=== PATIENT | male | born 1955 | race Caucasian/White ===

== ENCOUNTER → 2017-09-13 | Outpatient (CLI) | payer OTHER ==
--- NOTE | 2017-09-13 08:10 | CT ---
EXAMINATION TYPE: CT brain wo con DATE OF EXAM: 09/13/2017 COMPARISON: NONE HISTORY: Memory loss CT DLP: 945.[address] of the brain was performed. The ventricles, basal cisterns and sulci overlying the cerebral convexities demonstrate mild enlargem ent. There is no evidence for intracranial hemorrhage or sulcal effacement. There is decreased attenuation about the periventricular white matter and deep white matter of both c erebral hemispheres, compatible with chronic small vessel ischemia. Differential diagnosis does inclu de demyelination. No mass effects are seen.No midline shift. Osseous calvarium is intact. If symptoms persist consider MRI. IMPRESSION: 1. Age related atrophic and chronic small vessel ischemic change without acute intracranial process s een at this time.
== END | disposition home or self-care (01) ==
LOC: RADCTMAIN 06:52
PROVIDERS: ATTEND Psychiatry & Neurology Neurology
DX: G31.9 Degenerative disease of nervous system, unspecified (principal); I67.82 Cerebral ischemia
CPT/HCPCS: 70450

== ENCOUNTER 2018-06-29 11:21 | Emergency (ER) | payer OTHER ==
[2018-06-29 12:27] LABS: Appearance,Urine Clear (Clear); Basophils # (A) 0.1 k/uL (0-0.2); Basophils % (A) 1 %; Bilirubin,Urine Negative (Negative); Blood,Urine Negative (Negative); Color,Urine Yellow; Eosinophils # (A) 0.2 k/uL (0-0.7); Eosinophils % (A) 3 %; Glucose,Urine (UA) Negative (Negative); HCT 40.7 % (39.0-53.0); HGB 13.1 gm/dL (13.0-17.5); Ketones,Urine Negative (Negative); Leukocyte Esterase,Urine Negative (Negative); Lymphocytes % (A) 36 %; MCHC 32.2 g/dL (31.0-37.0); Mean Platelet Volume 7.6; Monocytes # (A) 0.3 k/uL (0-1.0); Monocytes % (A) 6 %; Neutrophils # (A) 2.9 k/uL (1.3-7.7); Neutrophils % (A) 52 %; Nitrite,Urine Negative (Negative); PH, Urine 6.5 (5.0-8.0); Platelet Count 226 k/uL (150-450); Protein,Urine Negative (Negative); RBC 4.68 m/uL (4.30-5.90); RDW 13.8 % (11.5-15.5); Specific Gravity,Urine 1.016 (1.001-1.035); WBC 5.5 k/uL (3.8-10.6)
[2018-06-29 12:36] LABS: ALT 45 U/L (21-72); AST 24 U/L (17-59); Albumin 4.1 g/dL (3.5-5.0); Alkaline Phosphatase 69 U/L (38-126); Anion Gap 7 mmol/L; Blood Urea Nitrogen 12 mg/dL (9-20); Calcium 8.9 mg/dL (8.4-10.2); Carbon Dioxide 27 mmol/L (22-30); Chloride 107 mmol/L (98-107); Glucose 111 mg/dL (74-99); Lipase 56 U/L (23-300); Potassium 3.9 mmol/L (3.5-5.1); Sodium 141 mmol/L (137-145); Total Bilirubin 0.5 mg/dL (0.2-1.3); Total Protein 6.7 g/dL (6.3-8.2)
--- NOTE | 2018-06-29 12:58 | CT ---
EXAMINATION TYPE: CT abdomen pelvis w con DATE OF EXAM: 06/29/2018 COMPARISON: HISTORY: RLQ pain CT DLP: 876 mGycm CONTRAST: CT scan of the abdomen and pelvis is performed without Oral Contrast and with IV Contrast, patient in jected with 100 mL of Isovue 300. FINDINGS: LUNG BASES-: No visible nodule. No infiltrate. LIVER/GB: No calcified gallstones. Mild hepatomegaly with underlying hepatic steatosis. No space o ccupying hepatic lesion. Biliary tree is of normal caliber. PANCREAS: No inflammation. No distinct mass. SPLEEN: No splenic enlargement. No lesion seen. ADRENALS: No nodule. No thickening. KIDNEYS/BLADDER: No hydronephrosis. No nephrolithiasis. No distinct renal mass. Urinary bladder g rossly unremarkable. BOWEL: Normal appendix. There is mild wall thickening involving the small bowel which may reflect en teritis. Correlate clinically. Large bowel is of normal caliber. Normal bowel caliber. No inflammati on. GENITAL ORGANS: No gross abnormality. LYMPH NODES: No greater than 1cm abdominal or pelvic lymph nodes are appreciated. AORTA: No significant abnormality. OSSEOUS STRUCTURES: No significant abnormality is seen. OTHER: No significant additional abnormality is seen. IMPRESSION: 1. Correlate for small bowel enteritis. 2. Mild hepatomegaly with underlying hepatic steatosis. 3. Normal appendix.
[2018-06-29] MEDS ORDERED: ACET/COD 300 MG/30 MG STARTER PACK 6 TAB BTL PO STA (13:26)
[2018-06-29] MEDS ORDERED: KETOROLAC 30 MG/ML 1 ML VIAL IVP STA (13:26)
--- NOTE | 2018-06-29 13:29 | ED ---
Abdominal Pain HPI - General Chief Complaint: Abdominal Pain Stated Complaint: [facility]-Abd Pain Time Seen by Provider: 06/29/18 11:45 Source: patient, RN notes reviewed Mode of arrival: ambulatory Limitations: no limitations - History of Present Illness Initial Comments: 62-year-old male presents emergency Department chief complaint right lower quadrant abdominal pain. Patient states she had some discomfort after lifting some parts other day and states it worsened today after lifting parts. Patient states he has a large amount lifting at work. Patient states he feels swelling and pain in the right lower quadrant. Patient states never had any like this in the past. - Related Data Home Medications Medication Instructions Recorded Confirmed Tamsulosin HCl [Flomax] 0.4 mg PO HS 08/14/14 06/29/18 Albuterol Nebulized [Ventolin 2.5 mg INHALATION RT-QID PRN 06/29/18 06/29/18 Nebulized] Aspirin EC [Ecotrin Low Dose] 81 mg PO DAILY 06/29/18 06/29/18 Atorvastatin Calcium [Lipitor] 80 mg PO HS 06/29/18 06/29/18 Carvedilol [Coreg] 3.125 mg PO BID 06/29/18 06/29/18 Cetirizine HCl [Zyrtec] 10 mg PO DAILY 06/29/18 06/29/18 Cholecalciferol (Vitamin D3) 2,000 unit PO DAILY 06/29/18 06/29/18 [Vitamin D3] Finasteride [Proscar] 5 mg PO DAILY 06/29/18 06/29/18 Ipratropium/Albuterol Sulfate 1 puff INHALATION RT-QID 06/29/18 06/29/18 [Combivent Respimat Inhaler] Isosorbide Mononitrate ER [Imdur] 30 mg PO DAILY 06/29/18 06/29/18 Nitroglycerin Sl Tabs [Nitrostat] 0.4 mg SUBLINGUAL Q5M PRN 06/29/18 06/29/18 Omeprazole 40 mg PO BID 06/29/18 06/29/18 Sertraline HCl [Zoloft] 50 mg PO DAILY 06/29/18 06/29/18 rOPINIRole HCL [Requip] 0.25 mg PO HS 06/29/18 06/29/18 Previous Rx's Medication Instructions Recorded Ibuprofen [Motrin] 600 mg PO Q8HR PRN #30 tab 06/29/18 Allergies Allergy/AdvReac Type Severity Reaction Status Date / Time No Known Allergies Allergy Verified 06/29/18 11:39 Review of Systems ROS Statement: Those systems with pertinent positive or pertinent negative responses have been documented in the HPI. ROS Other: All systems not noted in ROS Statement are negative. Past Medical History Past Medical History: COPD, GERD/Reflux, Hyperlipidemia, Hypertension Additional Past Medical History / Comment(s): BEGINNINGS OF CATARACT NOT SURE WHICH EYE, LT EAR DEAF-READS LIPS, CARPAL TUNNEL. HX FAlls has bad rt ankle getting pt on it but loses his balanceuses cane if out and about,forgetfull at times History of Any Multi-Drug Resistant Organisms: None Reported Past Surgical History: Unable to Obtain Additional Past Surgical History / Comment(s): rt carpal tunnel sx Past Anesthesia/Blood Transfusion Reactions: No Reported Reaction Past Psychological History: No Psychological Hx Reported Smoking Status: Former smoker Past Alcohol Use History: None Reported Past Drug Use History: None Reported - Past Family History Father Family Medical History: Myocardial Infarction ([place]) Mother Family Medical History: Cancer, Hypertension, Liver Disease Additional Family Medical History / Comment(s): tb in 1968, breast cancer General Exam Limitations: no limitations General appearance: alert, in no apparent distress Head exam: Present: atraumatic, normocephalic, normal inspection Respiratory exam: Present: normal lung sounds bilaterally. Absent: respiratory distress, wheezes, rales, rhonchi, stridor Cardiovascular Exam: Present: regular rate, normal rhythm, normal heart sounds. Absent: systolic murmur, diastolic murmur, rubs, gallop, clicks GI/Abdominal exam: Present: soft, tenderness (Mild right inguinal region tenderness), normal bowel sounds. Absent: distended, guarding, rebound, rigid Back exam: Absent: CVA tenderness (R), CVA tenderness (L) Course Vital Signs 06/29/18 11:24 Temperature 98 F Pulse Rate 91 Respiratory 18 Rate Blood Pressure 138/76 O2 Sat by Pulse 96 Oximetry Medical Decision Making - Medical Decision Making 62-year-old male presented for right-sided abdominal pain after lifting parts. Patient has abdominal wall strain. Patient has no evidence of inguinal hernia at this time. Patient will follow-up [facility] return for any worsening symptoms. - Lab Data Result diagrams: 06/29/18 12:10 06/29/18 12:10 Lab Results 06/29/18 06/29/18 06/29/18 Range/Units 12:10 12:10 12:10 WBC 5.5 (3.8-10.6) k/uL RBC 4.68 (4.30-5.90) m/uL Hgb 13.1 (13.0-17.5) gm/dL Hct 40.7 (39.0-53.0) % MCV 87.0 (80.0-100.0) fL MCH 28.0 (25.0-35.0) pg MCHC 32.2 (31.0-37.0) g/dL RDW 13.8 (11.5-15.5) % Plt Count 226 (150-450) k/uL Neutrophils % 52 % Lymphocytes % 36 % Monocytes % 6 % Eosinophils % 3 % Basophils % 1 % Neutrophils # 2.9 (1.3-7.7) k/uL Lymphocytes # 2.0 (1.0-4.8) k/uL Monocytes # 0.3 (0-1.0) k/uL Eosinophils # 0.2 (0-0.7) k/uL Basophils # 0.1 (0-0.2) k/uL Sodium 141 (137-145) mmol/L Potassium 3.9 (3.5-5.1) mmol/L Chloride 107 (98-107) mmol/L Carbon Dioxide 27 (22-30) mmol/L Anion Gap 7 mmol/L BUN 12 (9-20) mg/dL Creatinine 0.78 (0.66-1.25) mg/dL Est GFR (CKD-EPI)AfAm >90 (>60 ml/min/1.73 sqM) Est GFR (CKD-EPI)NonAf >90 (>60 ml/min/1.73 sqM) Glucose 111 H (74-99) mg/dL Calcium 8.9 (8.4-10.2) mg/dL Total Bilirubin 0.5 (0.2-1.3) mg/dL AST 24 (17-59) U/L ALT 45 (21-72) U/L Alkaline Phosphatase 69 (38-126) U/L Total Protein 6.7 (6.3-8.2) g/dL Albumin 4.1 (3.5-5.0) g/dL Lipase 56 (23-300) U/L Urine Color Yellow Urine Appearance Clear (Clear) Urine pH 6.5 (5.0-8.0) Ur Specific [place] 1.016 (1.001-1.035) Urine Protein Negative (Negative) Urine Glucose (UA) Negative (Negative) Urine Ketones Negative (Negative) Urine Blood Negative (Negative) Urine Nitrite Negative (Negative) Urine Bilirubin Negative (Negative) Urine Urobilinogen 2.0 (<2.0) mg/dL Ur Leukocyte Esterase Negative (Negative) Disposition Clinical Impression: Abdominal pain, Abdominal wall strain Disposition: HOME SELF-CARE Condition: Stable Instructions (If sedation given, give patient instructions): Muscle Strain (ED) Additional Instructions: Please return to the Emergency Department if symptoms worsen or any other concerns. Prescriptions: Ibuprofen [Motrin] 600 mg PO Q8HR PRN #30 tab PRN Reason: Pain Is patient prescribed a controlled substance at d/c from ED?: No Referrals: [facility],Clinic [Primary Care Provider] - 1-2 days Time of Disposition: 13:29
[2018-06-29 14:16] VITALS: BP 132/88; PULSE 78; RESP 19; TEMP 96.9
== END 2018-06-29 14:16 | disposition home or self-care (01) ==
LOC: EC 11:21
DX: S39.011A Strain of muscle, fascia and tendon of abdomen, initial encounter (principal); J44.9 Chronic obstructive pulmonary disease, unspecified; K21.9 Gastro-esophageal reflux disease without esophagitis; E78.5 Hyperlipidemia, unspecified; I10 Essential (primary) hypertension; Z87.891 Personal history of nicotine dependence; Z79.82 Long term (current) use of aspirin; Z79.899 Other long term (current) drug therapy; Z53.29 Procedure and treatment not carried out because of patient's decision for other reasons
CPT/HCPCS: 36415; 74177; 80053; 81003; 83690; 85025; 99284

== ENCOUNTER → 2018-07-01 | Outpatient (CLI) | payer OTHER ==
--- NOTE | 2018-07-01 16:17 | XR ---
EXAMINATION TYPE: XR Hip Complete RT DATE OF EXAM: 07/01/2018 CLINICAL HISTORY: pain TECHNIQUE: AP and frogleg views of the right hip are obtained. COMPARISON: None. FINDINGS: There is no acute fracture/dislocation evident. The joint space appears within normal li mits. The overlying soft tissue appears unremarkable. IMPRESSION: 1. There is no acute fracture or dislocation. ICD 10 NO FRACTURE, INITIAL EVALUATION
--- NOTE | 2018-07-01 17:19 | US ---
EXAMINATION TYPE: US SCROTUM WITH DOPPLER. Grayscale and color Doppler Duplex imaging performed of the scrotum. DATE OF EXAM: 07/01/2018 COMPARISON: NONE CLINICAL HISTORY: S73.101A, N45.1. Pt states right groin/testicle pain after lifting EXAM MEASUREMENTS: TESTICLES: Right Testicle: 3.4 x 2.2 x 3.0 cm Left Testicle: 2.8 x 2.2 x 3.3 cm EPIDIDYMIS HEAD: Right Epididymis: 1.1 cm Left Epididymis: normal epididymis not visualized due to multiple cysts Doppler performed to assess for testicular vascularity; good bilateral color flow and waveforms are s een. There is no evidence of testicular torsion. Presence of hydroceles: Small amount of fluid surrounding right testicle Presence of varicoceles: No Cyst within left testicle upper= 0.3 cm/ Multiple cysts within left epi head, largest 2 measured 1)= 1.7 cm 2)= 1.5 cm Results called to Fran KWONG at time of exam IMPRESSION: NO ACUTE PROCESS.
== END ==
LOC: RADXRMAIN 15:47
PROVIDERS: ATTEND Emergency Medicine
DX: S73.101A Unspecified sprain of right hip, initial encounter (principal); N45.1 Epididymitis
CPT/HCPCS: 73502; 76870; 93975

== ENCOUNTER → 2018-07-14 | Outpatient (CLI) | payer OTHER ==
--- NOTE | 2018-07-14 15:24 | CONS ---
CONSULTATION DATE OF SERVICE: 07/14/2018 A 62-year-old gentleman who has been evaluated in the [facility] for excessive daytime sleepiness. HISTORY OF PRESENT ILLNESS/SLEEP-WAKE EVALUATION: Patient usual sleep schedule from 8 - 9 p.m. until 5:15 am on working days and from 9 - 10 p.m. to 8 a.m. on weekends. He does have problem with falling asleep. He reads in bedroom. Usually sleeps on the side position and he wakes up from sleep 5 times with nocturia and has episodes of body jerks. No history of hypnagogic hallucinations, sleep paralysis or cataplexy. In the morning, patient wakes up tired has difficulties to pay attention during the day, falling asleep, worry about his sleep, has problem with memory and concentration. [place] Sleepiness Scale significantly increased to 15. PAST MEDICAL HISTORY: Positive for hypertension, COPD, acid reflux, hyperlipidemia, depression, episodes of chest pain according to patient. Cardiac evaluation was negative for significant coronary artery disease problems. PAST SURGICAL HISTORY: Surgery for carpal tunnel syndrome on the right arm in 2004. MEDICATIONS: Ibuprofen, atorvastatin, finasteride, tamsulosin, sertraline, omeprazole, isosorbide, aspirin, nitroglycerin, cetirizine, inhalers of Combivent and albuterol. Also medication for the blood pressure. Patient does not remember the name. SOCIAL HISTORY: Positive for smoking for about 40 pack years, quit 10 years ago. Alcohol consumption none for the last 23 years. REVIEW OF SYSTEMS: Multiple awakenings from sleep, sleepiness during the day. FAMILY HISTORY: Hypertension, heart problems, hyperlipidemia, bronchitis, lung problems, emphysema, tuberculosis, acid reflex, cancer, restless legs. PHYSICAL EXAM: gentleman without distress. BP 121/68, HR 85, RR 16, height 20 height 5 foot 9 inches, weight 202.8 pounds, body mass index 29.8, temperature 97.9, oxygen saturation at room air 95%. Oropharynx low position of soft palate. Mallampati 3. Big uvula. Restriction of nasal breathing bilaterally. Neck Supple, no JVD. Thyroid is not palpable. LUNGS Clear to percussion and to auscultation. Good air exchange. No wheezing or rhonchi. HEART S1, S2 regular. No murmurs, gallops, or rubs. ABDOMEN Soft and nontender. Bowel sounds are present. No organomegaly appreciated. EXTREMITIES No clubbing or cyanosis. 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 Cranial nerves 2 to 7 intact. There is no fasciculation or atrophy. noted. No focal deficits observed. IMPRESSION: 1. Multiple awakenings from sleep. Small oropharyngeal air space, wide neck 16-3/4 inches in circumference, sleepiness, obstructive sleep apnea-hypopnea syndrome. 2. Significant sleepiness. [place] Sleepiness Scale increased to 15. Differential diagnosis should include hypersomnia. Sleep study will be negative for obstructive sleep apnea-hypopnea syndrome. 3. History of hypertension. 4. Chronic obstructive pulmonary disease. 5. Acid reflux. 6. Hyperlipidemia. 7. History of depression. 8. History of episodes of angina. 9. According to patient, workup for significant cardiac problems was negative. PLAN: 1. Polysomnography for evaluation of patient's breathing during sleep. 2. CPAP/BiPAP titration if sleep study confirms obstructive sleep apnea-hypopnea syndrome. 3. Preferable position during sleep on the side. 4. No driving if patient feels any sleepiness. 5. I will see patient for follow up visit to explain results of testing and following plan. 6. Multiple sleep latency test, if sleep study will be negative for obstructive sleep apnea/hypopnea syndrome. Thank you very much for referring this patient for consultation. Sincerely, Wilfredo Samuel MD, PhD, FAASM Diplomat of [place] [employer] [place] [employer] [facility] [place] MMODL / IJN: [id number] /
== END ==
LOC: SLEEP 13:28
PROVIDERS: ATTEND Internal Medicine
DX: G47.33 Obstructive sleep apnea (adult) (pediatric) (principal); I10 Essential (primary) hypertension; J44.9 Chronic obstructive pulmonary disease, unspecified; K21.9 Gastro-esophageal reflux disease without esophagitis; E78.5 Hyperlipidemia, unspecified; F32.9 Major depressive disorder, single episode, unspecified; Z79.899 Other long term (current) drug therapy; Z79.82 Long term (current) use of aspirin; Z79.51 Long term (current) use of inhaled steroids; Z87.891 Personal history of nicotine dependence; Z99.89 Dependence on other enabling machines and devices; Z86.79 Personal history of other diseases of the circulatory system
CPT/HCPCS: 99211

== ENCOUNTER 2018-09-13 19:15 | Emergency (ER) | payer OTHER ==
[2018-09-13] MEDS ORDERED: IBUPROFEN 600 MG TAB PO STA (19:55)
[2018-09-13] MEDS ORDERED: ACETAMINOPHEN TAB 500 MG TAB PO STA (19:55)
--- NOTE | 2018-09-13 20:01 | ED ---
General Adult HPI - General Source: patient, RN notes reviewed Mode of arrival: wheelchair Limitations: no limitations, physical limitation <Steven Escalante - Last Filed: 09/13/18 20:57> <Ayo Banda - Last Filed: 09/13/18 23:38> - General Chief complaint: Chest Pain Stated complaint: SOB, CHEST TIGHTNESS Time Seen by Provider: 09/13/18 19:30 - History of Present Illness Initial comments: This is a 63-year-old male who presents emergency Department with a past medical history of COPD. Patient comes in today because he's been having some chest pain and difficulty breathing over the last week but the chest pain started yesterday. Patient states she's also been coughing quite a bit more. Patient states he does not think he has a fever but he never took his temperature. Patient denies any palpitations. Patient denies any abdominal pain. Patient states that the chest pain as a burning sensation. Patient states it does appear to be worse with coughing. Patient denies any nausea vomiting diarrhea. Patient denies lightheadedness dizziness or near syncopal episode. Patient denies any swelling to the legs. Calf tenderness. (Steven Escalante) - Related Data Home Medications Medication Instructions Recorded Confirmed Tamsulosin HCl [Flomax] 0.4 mg PO HS 08/14/14 09/13/18 Albuterol Nebulized [Ventolin 2.5 mg INHALATION RT-QID PRN 06/29/18 09/13/18 Nebulized] Aspirin EC [Ecotrin Low Dose] 81 mg PO DAILY 06/29/18 09/13/18 Atorvastatin Calcium [Lipitor] 80 mg PO HS 06/29/18 09/13/18 Carvedilol [Coreg] 3.125 mg PO BID 06/29/18 09/13/18 Cetirizine HCl [Zyrtec] 10 mg PO DAILY 06/29/18 09/13/18 Finasteride [Proscar] 5 mg PO DAILY 06/29/18 09/13/18 Ipratropium/Albuterol Sulfate 1 puff INHALATION RT-QID 06/29/18 09/13/18 [Combivent Respimat Inhaler] Isosorbide Mononitrate ER [Imdur] 30 mg PO DAILY 06/29/18 09/13/18 Nitroglycerin Sl Tabs [Nitrostat] 0.4 mg SUBLINGUAL Q5M PRN 06/29/18 09/13/18 Omeprazole 40 mg PO BID 06/29/18 09/13/18 Sertraline HCl [Zoloft] 50 mg PO DAILY 06/29/18 09/13/18 rOPINIRole HCL [Requip] 0.25 mg PO HS 06/29/18 09/13/18 Cholecalciferol [Vitamin D3 (25 5,000 unit PO DAILY 09/13/18 09/13/18 Mcg = 1000 Iu)] Meloxicam [Mobic] 7.5 mg PO DAILY 09/13/18 09/13/18 Previous Rx's Medication Instructions Recorded Ibuprofen [Motrin] 600 mg PO Q8HR PRN #30 tab 06/29/18 Azithromycin [Zithromax Z-pack] 250 mg PO DIRECTED #6 tab 09/13/18 Allergies Allergy/AdvReac Type Severity Reaction Status Date / Time No Known Allergies Allergy Verified 09/13/18 19:49 Review of Systems ROS Other: All systems not noted in ROS Statement are negative. <Steven Escalante - Last Filed: 09/13/18 20:57> ROS Other: All systems not noted in ROS Statement are negative. <yAo Banda - Last Filed: 09/13/18 23:38> ROS Statement: Those systems with pertinent positive or pertinent negative responses have been documented in the HPI. Past Medical History Past Medical History: COPD, GERD/Reflux, Hyperlipidemia, Hypertension Additional Past Medical History / Comment(s): BEGINNINGS OF CATARACT NOT SURE WHICH EYE, LT EAR DEAF-READS LIPS, CARPAL TUNNEL. HX FAlls has bad rt ankle getting pt on it but loses his balanceuses cane if out and about,forgetfull at times History of Any Multi-Drug Resistant Organisms: None Reported Past Surgical History: Unable to Obtain Additional Past Surgical History / Comment(s): rt carpal tunnel sx Past Anesthesia/Blood Transfusion Reactions: No Reported Reaction Past Psychological History: No Psychological Hx Reported Smoking Status: Former smoker Past Alcohol Use History: None Reported Past Drug Use History: None Reported - Past Family History Father Family Medical History: Myocardial Infarction (VT) Mother Family Medical History: Cancer, Hypertension, Liver Disease Additional Family Medical History / Comment(s): tb in 1967, breast cancer <Steven Escalante - Last Filed: 09/13/18 20:57> General Exam Limitations: no limitations, physical limitation <Steven Escalante - Last Filed: 09/13/18 20:57> - General Exam Comments Initial Comments: GENERAL: Patient is well-developed and well-nourished. Patient is nontoxic and well- hydrated and is in mild distress. The patient's temperature it was 101.5 ENT: Neck is soft and supple. No significant lymphadenopathy is noted. Oropharynx is clear. Moist mucous membranes. Neck has full range of motion without eliciting any pain. EYES: The sclera were anicteric and conjunctiva were pink and moist. Extraocular movements were intact and pupils were equal round and reactive to light. Eyelids were unremarkable. PULMONARY: Diminished breath sounds bilaterally CARDIOVASCULAR: There is a regular rate and rhythm without any murmurs gallops or rubs. ABDOMEN: Soft and nontender with normal bowel sounds. No palpable organomegaly was noted. There is no palpable pulsatile mass. SKIN: Skin is clear with no lesions or rashes and otherwise unremarkable. NEUROLOGIC: Patient is alert and oriented x3. Cranial nerves II through XII are grossly intact. Motor and sensory are also intact. Normal speech, volume and content. Symmetrical smile. MUSCULOSKELETAL: Normal extremities with adequate strength and full range of motion. No lower extremity swelling or edema. No calf tenderness. LYMPHATICS: No significant lymphadenopathy is noted PSYCHIATRIC: Normal psychiatric evaluation. (Steven Ecsalante) Course Vital Signs 09/13/18 09/13/18 09/13/18 19:27 21:03 21:06 Temperature 99.1 F 101.7 F H Pulse Rate 124 H 112 H Pulse Rate [ Bilateral [place] Guide ] Respiratory 22 18 Rate Blood Pressure 137/73 143/82 O2 Sat by Pulse 93 L 98 Oximetry 09/13/18 09/13/18 09/13/18 21:07 21:37 21:47 Temperature Pulse Rate 108 H 110 H Pulse Rate [ 111 H Bilateral [place] Guide ] Respiratory Rate Blood Pressure O2 Sat by Pulse Oximetry 09/13/18 09/13/18 21:58 22:29 Temperature 99.7 F H Pulse Rate 110 H 105 H Pulse Rate [ Bilateral [place] Guide ] Respiratory 18 18 Rate Blood Pressure 128/66 124/67 O2 Sat by Pulse 98 Oximetry Medical Decision Making - Lab Data Result diagrams: 09/13/18 20:00 09/13/18 20:00 <Steven Escalante - Last Filed: 09/13/18 20:57> - Lab Data Result diagrams: 09/13/18 20:00 09/13/18 20:00 <Ayo Banda - Last Filed: 09/13/18 23:38> - Medical Decision Making EKG shows sinus tachycardia at 114 bpm NM interval 274 QRS is 70 QT interval is 292 QTC is 402. Patient's EKG shows no ST segment elevation or depression. Dr. Banda be taking over the care of the patient 9 PM (Steven Escalante) - Lab Data Lab Results 09/13/18 09/13/18 09/13/18 Range/Units 20:00 20:00 20:00 WBC 11.3 H (3.8-10.6) k/uL RBC 5.10 (4.30-5.90) m/uL Hgb 13.9 (13.0-17.5) gm/dL Hct 43.8 (39.0-53.0) % MCV 86.0 (80.0-100.0) fL MCH 27.3 (25.0-35.0) pg MCHC 31.8 (31.0-37.0) g/dL RDW 14.4 (11.5-15.5) % Plt Count 231 (150-450) k/uL Neutrophils % 81 % Lymphocytes % 9 % Monocytes % 6 % Eosinophils % 2 % Basophils % 0 % Neutrophils # 9.2 H (1.3-7.7) k/uL Lymphocytes # 1.0 (1.0-4.8) k/uL Monocytes # 0.7 (0-1.0) k/uL Eosinophils # 0.2 (0-0.7) k/uL Basophils # 0.1 (0-0.2) k/uL PT (9.0-12.0) sec INR (<1.2) APTT (22.0-30.0) sec Sodium 140 (137-145) mmol/L Potassium 4.2 (3.5-5.1) mmol/L Chloride 105 (98-107) mmol/L Carbon Dioxide 25 (22-30) mmol/L Anion Gap 10 mmol/L BUN 15 (9-20) mg/dL Creatinine 0.96 (0.66-1.25) mg/dL Est GFR (CKD-EPI)AfAm >90 (>60 ml/min/1.73 sqM) Est GFR (CKD-EPI)NonAf 84 (>60 ml/min/1.73 sqM) Glucose 119 H (74-99) mg/dL Plasma Lactic Acid Mane 2.0 (0.7-2.0) mmol/L Calcium 9.4 (8.4-10.2) mg/dL Total Bilirubin 0.5 (0.2-1.3) mg/dL AST 31 (17-59) U/L ALT 29 (21-72) U/L Alkaline Phosphatase 84 (38-126) U/L Troponin I (0.000-0.034) ng/mL Total Protein 7.3 (6.3-8.2) g/dL Albumin 4.6 (3.5-5.0) g/dL Urine Color Urine Appearance (Clear) Urine pH (5.0-8.0) Ur Specific [place] (1.001-1.035) Urine Protein (Negative) Urine Glucose (UA) (Negative) Urine Ketones (Negative) Urine Blood (Negative) Urine Nitrite (Negative) Urine Bilirubin (Negative) Urine Urobilinogen (<2.0) mg/dL Ur Leukocyte Esterase (Negative) Influenza Type A RNA (Not Detectd) Influenza Type B (PCR) (Not Detectd) 09/13/18 09/13/18 09/13/18 Range/Units 20:00 20:00 21:00 WBC (3.8-10.6) k/uL RBC (4.30-5.90) m/uL Hgb (13.0-17.5) gm/dL Hct (39.0-53.0) % MCV (80.0-100.0) fL MCH (25.0-35.0) pg MCHC (31.0-37.0) g/dL RDW (11.5-15.5) % Plt Count (150-450) k/uL Neutrophils % % Lymphocytes % % Monocytes % % Eosinophils % % Basophils % % Neutrophils # (1.3-7.7) k/uL Lymphocytes # (1.0-4.8) k/uL Monocytes # (0-1.0) k/uL Eosinophils # (0-0.7) k/uL Basophils # (0-0.2) k/uL PT 9.6 (9.0-12.0) sec INR 0.9 (<1.2) APTT 23.1 (22.0-30.0) sec Sodium (137-145) mmol/L Potassium (3.5-5.1) mmol/L Chloride (98-107) mmol/L Carbon Dioxide (22-30) mmol/L Anion Gap mmol/L BUN (9-20) mg/dL Creatinine (0.66-1.25) mg/dL Est GFR (CKD-EPI)AfAm (>60 ml/min/1.73 sqM) Est GFR (CKD-EPI)NonAf (>60 ml/min/1.73 sqM) Glucose (74-99) mg/dL Plasma Lactic Acid Mane (0.7-2.0) mmol/L Calcium (8.4-10.2) mg/dL Total Bilirubin (0.2-1.3) mg/dL AST (17-59) U/L ALT (21-72) U/L Alkaline Phosphatase (38-126) U/L Troponin I <0.012 (0.000-0.034) ng/mL Total Protein (6.3-8.2) g/dL Albumin (3.5-5.0) g/dL Urine Color Light Yellow Urine Appearance Clear (Clear) Urine pH 6.5 (5.0-8.0) Ur Specific [place] 1.008 (1.001-1.035) Urine Protein Negative (Negative) Urine Glucose (UA) Negative (Negative) Urine Ketones Negative (Negative) Urine Blood Negative (Negative) Urine Nitrite Negative (Negative) Urine Bilirubin Negative (Negative) Urine Urobilinogen <2.0 (<2.0) mg/dL Ur Leukocyte Esterase Negative (Negative) Influenza Type A RNA (Not Detectd) Influenza Type B (PCR) (Not Detectd) 09/13/18 Range/Units 21:00 WBC (3.8-10.6) k/uL RBC (4.30-5.90) m/uL Hgb (13.0-17.5) gm/dL Hct (39.0-53.0) % MCV (80.0-100.0) fL MCH (25.0-35.0) pg MCHC (31.0-37.0) g/dL RDW (11.5-15.5) % Plt Count (150-450) k/uL Neutrophils % % Lymphocytes % % Monocytes % % Eosinophils % % Basophils % % Neutrophils # (1.3-7.7) k/uL Lymphocytes # (1.0-4.8) k/uL Monocytes # (0-1.0) k/uL Eosinophils # (0-0.7) k/uL Basophils # (0-0.2) k/uL PT (9.0-12.0) sec INR (<1.2) APTT (22.0-30.0) sec Sodium (137-145) mmol/L Potassium (3.5-5.1) mmol/L Chloride (98-107) mmol/L Carbon Dioxide (22-30) mmol/L Anion Gap mmol/L BUN (9-20) mg/dL Creatinine (0.66-1.25) mg/dL Est GFR (CKD-EPI)AfAm (>60 ml/min/1.73 sqM) Est GFR (CKD-EPI)NonAf (>60 ml/min/1.73 sqM) Glucose (74-99) mg/dL Plasma Lactic Acid Mane (0.7-2.0) mmol/L Calcium (8.4-10.2) mg/dL Total Bilirubin (0.2-1.3) mg/dL AST (17-59) U/L ALT (21-72) U/L Alkaline Phosphatase (38-126) U/L Troponin I (0.000-0.034) ng/mL Total Protein (6.3-8.2) g/dL Albumin (3.5-5.0) g/dL Urine Color Urine Appearance (Clear) Urine pH (5.0-8.0) Ur Specific [place] (1.001-1.035) Urine Protein (Negative) Urine Glucose (UA) (Negative) Urine Ketones (Negative) Urine Blood (Negative) Urine Nitrite (Negative) Urine Bilirubin (Negative) Urine Urobilinogen (<2.0) mg/dL Ur Leukocyte Esterase (Negative) Influenza Type A RNA Not Detected (Not Detectd) Influenza Type B (PCR) Not Detected (Not Detectd) Disposition <Steven Escalante - Last Filed: 09/13/18 20:57> Is patient prescribed a controlled substance at d/c from ED?: No <Ayo Banda - Last Filed: 09/13/18 23:38> Clinical Impression: Pneumonia, COPD exacerbation Disposition: Left Against Medical Advice Condition: Fair Instructions (If sedation given, give patient instructions): COPD (Chronic Obstructive Pulmonary Disease) (ED), Pneumonia (ED) Prescriptions: Azithromycin [Zithromax Z-pack] 250 mg PO DIRECTED #6 tab Referrals: [facility],Clinic [Primary Care Provider] - 1-2 days
[2018-09-13 20:19] LABS: Basophils # (A) 0.1 k/uL (0-0.2); Basophils % (A) 0 %; Eosinophils # (A) 0.2 k/uL (0-0.7); Eosinophils % (A) 2 %; HCT 43.8 % (39.0-53.0); HGB 13.9 gm/dL (13.0-17.5); Lymphocytes % (A) 9 %; MCH 27.3 pg (25.0-35.0); MCHC 31.8 g/dL (31.0-37.0); Monocytes # (A) 0.7 k/uL (0-1.0); Monocytes % (A) 6 %; Neutrophils # (A) 9.2 k/uL (1.3-7.7); Neutrophils % (A) 81 %; Platelet Count 231 k/uL (150-450); RDW 14.4 % (11.5-15.5); WBC 11.3 k/uL (3.8-10.6)
[2018-09-13 20:27] LABS: INR 0.9 (<1.2); Partial Thromboplastin Time 23.1 sec (22.0-30.0); Prothrombin Time 9.6 sec (9.0-12.0)
[2018-09-13 20:31] LABS: ALT 29 U/L (21-72); AST 31 U/L (17-59); African American GFR (CKD) >90 (>60 ml/min/1.73 sqM); Albumin 4.6 g/dL (3.5-5.0); Alkaline Phosphatase 84 U/L (38-126); Anion Gap 10 mmol/L; Blood Urea Nitrogen 15 mg/dL (9-20); Calcium 9.4 mg/dL (8.4-10.2); Carbon Dioxide 25 mmol/L (22-30); Chloride 105 mmol/L (98-107); Glucose 119 mg/dL (74-99); Potassium 4.2 mmol/L (3.5-5.1); Sodium 140 mmol/L (137-145); Total Bilirubin 0.5 mg/dL (0.2-1.3); Total Protein 7.3 g/dL (6.3-8.2)
[2018-09-13] MEDS: SODIUM CHLORIDE 0.9% 500 ML 500 ML IV SCH ×2 (20:50→21:56)
[2018-09-13] MEDS ORDERED: IPRATROPIUM-ALBUTEROL 3 ML NEB INHALATION STA (20:57)
[2018-09-13 21:05] VITALS: RESP 18
[2018-09-13 21:25] LABS: Appearance,Urine Clear (Clear); Bilirubin,Urine Negative (Negative); Blood,Urine Negative (Negative); Color,Urine Light Yellow; Glucose,Urine (UA) Negative (Negative); Ketones,Urine Negative (Negative); Leukocyte Esterase,Urine Negative (Negative); Nitrite,Urine Negative (Negative); PH, Urine 6.5 (5.0-8.0); Protein,Urine Negative (Negative); Specific Gravity,Urine 1.008 (1.001-1.035); Urobilinogen,Urine <2.0 mg/dL (<2.0)
--- NOTE | 2018-09-13 21:41 | XR ---
EXAMINATION: XR chest 2V DATE AND TIME: 09/13/2018 8:42 PM CLINICAL INDICATION: PHH; Fever TECHNIQUE: Departmental protocol COMPARISON: 10/01/2014 FINDINGS: Biapical opacity redemonstrated, consistent with biapical chronic parenchymal pleural markham e, with the overlying ribs being intact. The lungs are clear and the frontal radiograph, but the lateral radiograph shows evidence of basilar consolidation, which can correlate with a clinical diagnosis of basilar pneumonia. The pleural spaces are negative. The cardiac silhouette is not enlarged. The remainder of the mediastinal silhouette is unremarkable. The skeletal structures and soft tissues are negative for acute findings. IMPRESSION: SUSPECT BASILAR PNEUMONIA. Would advise 9 week follow-up PA and lateral chest. Inspiratory radiographs to prove resolution of th e findings.
[2018-09-13] MEDS ORDERED: ALBUTEROL NEBULIZED 2.5 MG/3 ML INHALATION PRN (22:38)
[2018-09-13] MEDS ORDERED: PNEUMONIA PROTOCOL UTILIZED 1 EACH MISC PO PRN (22:38)
[2018-09-13] MEDS ORDERED: AZITHROMYCIN 500 MG in SODIUM CHLORIDE 0.9% 250 ML IVPB STA (22:38)
[2018-09-13] MEDS ORDERED: IBUPROFEN 600 MG TAB PO PRN (22:40)
[2018-09-13] MEDS ORDERED: NITROGLYCERIN SL TABS 0.4 MG TAB SUBLINGUAL PRN (22:40)
[2018-09-13] MEDS ORDERED: SODIUM CHLORIDE 0.9% 1,000 ML IV SCH (22:45)
[2018-09-13] MEDS ORDERED: AZITHROMYCIN 500 MG TAB PO STA (23:35)
[2018-09-14] MEDS ORDERED: AZITHROMYCIN 500 MG TAB PO STA (00:13)
[2018-09-14 00:28] VITALS: BP 135/80; PULSE 98; TEMP 98.3
--- NOTE | 2018-09-14 06:12 | HP ---
HISTORY AND PHYSICAL CHIEF COMPLAINT: Shortness of breath and chest discomfort. HISTORY OF PRESENT ILLNESS: This 63-year-old gentleman with a past medical history of multiple medical problems including history of COPD, history of GERD, hypertension, hyperlipidemia being followed by Dr. Harkins in the [facility] in the outpatient setting, was complaining of shortness of breath and chest discomfort and cough for the past several days. Patient came to [facility] and admitted for further evaluation and treatment. Bilateral pneumonia was noted. There is no history of fever rigors. No history of headache, loss of consciousness, chest pain, palpitations at this time. PAST MEDICAL HISTORY: COPD, GERD, hypertension, hyperlipidemia, history of carpal tunnel syndrome. MEDICATIONS: Home medications are noted and include: 1. Requip 0.25 mg q.h.s. 2. Flomax 0.4 q.h.s. 3. Zoloft 50 mg p.o. daily. 4. Omeprazole 40 mg p.o. b.i.d. 5. Nitrostat 0.5 mg p.o. daily. 6. Mobic 7.5 p.o. daily. 7. Imdur 30 mg p.o. daily. 8. Combivent 1 puff q.i.d. 9. Motrin 600 mg q.8 p.r.n. 10.Proscar 5 mg p.o. daily. 11.Vitamin D3 5000. 12.Zyrtec 10 mg daily. 13.Coreg 3.125 mg b.i.d. 14.Lipitor 80 mg q.h.s. 15.Ecotrin 81 mg. 16.Ventolin 2.5 q.i.d. p.r.n. 17.Zithromax 250 mg p.r.n. ALLERGIES: None. FAMILY HISTORY: History of myocardial infarction in the family. History of DVT in the family. SOCIAL HISTORY: Previous history of smoking. No history of current smoking. No alcohol intake. REVIEW OF SYSTEMS: ENT: Diminished hearing and diminished vision. CARDIOVASCULAR: As mentioned earlier. RESPIRATORY: As mentioned earlier. GI no nausea or vomiting. : No dysuria. NERVOUS SYSTEM: No numbness or weakness. ALLERGY: No asthma or hayfever. MUSCULOSKELETAL as mentioned earlier. HEMATOLOGY/ONCOLOGY: No history of anemia. ENDOCRINE: No history of diabetes or hypothyroidism. CONSTITUTIONAL: As mentioned earlier. DERMATOLOGY: Negative. RHEUMATOLOGY: Negative. PSYCHIATRY: As mentioned earlier. PHYSICAL EXAMINATION: GENERAL: Alert and oriented times three. VITAL SIGNS: Pulse is 110, blood pressure 120/60, respirations 18, temperature 99.7, pulse ox 98% on 2 L. HEENT: Conjunctivae normal. Oral mucosa moist. NECK is no jugular venous distention. No carotid bruit. No lymph node enlargement. CARDIOVASCULAR system: S1, S2 muffled. No S3, no S4. RESPIRATORY: Breath sounds diminished in the bases. A few scattered rhonchi and crackles. ABDOMEN: Soft, nontender. No mass palpable. No hepatosplenomegaly. LEGS: No edema. No swelling. NERVOUS SYSTEM: Higher functions as mentioned earlier. Moves all 4 limbs. No focal motor or sensory deficits. LYMPHATICS: No lymph nodes palpable in the neck, axilla or groin. SKIN: No ulcer, rash or bleeding. JOINTS: No active deforming arthropathy. LABS: At this time shows WBC 11.3, hemoglobin 13.9, glucose 119. Influenza negative. ASSESSMENT: 1. Chronic obstructive pulmonary disease acute exacerbation possibly acute bibasilar pneumonia possibly gram-negative. 2. Chest pain for evaluation. 3. Gastroesophageal reflux disease. 4. Hypertension. 5. Hyperlipidemia. 6. Chronic obstructive pulmonary disease history. 7. Remote history of nicotine dependence. RECOMMENDATIONS AND DISCUSSION: In this 63-year-old gentleman who presented with multiple complex medical issues, we will monitor the patient closely, continue the current medications, management and symptomatic treatment. We will optimize bronchodilator treatment and empiric antibiotics. Also recommend evaluation of the chest pain. Otherwise, resume the home medications. DVT prophylaxis. Proton pump inhibitors. Prognosis guarded because of multiple complex medical issues. Further recommendations to follow. A copy of dictation being forwarded to Dr. Harkins in the [facility]. MMODL / IJN: [id number] /
[2018-09-14] MEDS ORDERED: IPRATROPIUM-ALBUTEROL 3 ML NEB INHALATION SCH (08:00)
[2018-09-14] MEDS ORDERED: FINASTERIDE 5 MG TAB PO SCH (09:00)
[2018-09-14] MEDS ORDERED: NON-FORMULARY DRUG (Omeprazole [Omeprazole] 40 MG) PO SCH (09:00)
[2018-09-14] MEDS ORDERED: SERTRALINE 100 MG TAB PO SCH (09:00)
[2018-09-14] MEDS ORDERED: CARVEDILOL 3.125 MG TAB PO SCH (09:00)
[2018-09-14] MEDS ORDERED: MELOXICAM 7.5 MG TAB PO SCH (09:00)
[2018-09-14] MEDS ORDERED: ISOSORBIDE MONONITRATE ER 30 MG TAB.ER.24H PO SCH (09:00)
[2018-09-14] MEDS ORDERED: CHOLECALCIFEROL 1,000 UNIT TAB PO SCH (09:00)
[2018-09-14] MEDS ORDERED: NON-FORMULARY DRUG (Aspirin Ec 81 MG) PO SCH (09:00)
--- NOTE | 2018-09-14 09:45 | DS ---
DISCHARGE SUMMARY FINAL DIAGNOSES: 1. Chronic obstructive pulmonary disease exacerbation with acute bibasilar pneumonia, possibly gram-negative. 2. Chest pain for evaluation, rule out on unstable angina. 3. Hypertension. 4. Hyperlipidemia. 5. History of gastroesophageal reflux disease. 6. History of nicotine dependence. The patient left the hospital against medical advice. HISTORY OF PRESENT ILLNESS: This is a 63-year-old gentleman with a past medical history of multiple medical problems [facility], admitted with features of COPD, pneumonia, chest pain; however, the patient left the hospital against medical advice. Please refer to the previous notes from the nursing staff for further details. Prognosis remains guarded. MMODL / IJN: [id number] / RACQUEL
[2018-09-14] MEDS ORDERED: ATORVASTATIN 80 MG TAB PO SCH (21:00)
[2018-09-14] MEDS ORDERED: TAMSULOSIN 0.4 MG CAP.ER.24H PO SCH (21:00)
[2018-09-14] MEDS ORDERED: AZITHROMYCIN 500 MG TAB PO SCH (22:39)
== END 2018-09-14 00:53 | disposition left against medical advice (07) ==
LOC: EC 19:15
DX: J44.0 Chronic obstructive pulmonary disease with (acute) lower respiratory infection (principal); J18.9 Pneumonia, unspecified organism; R00.0 Tachycardia, unspecified; K21.9 Gastro-esophageal reflux disease without esophagitis; E78.5 Hyperlipidemia, unspecified; I10 Essential (primary) hypertension; H91.92 Unspecified hearing loss, left ear; Z87.891 Personal history of nicotine dependence; Z79.1 Long term (current) use of non-steroidal anti-inflammatories (NSAID); Z79.82 Long term (current) use of aspirin; Z79.899 Other long term (current) drug therapy; Z87.39 Personal history of other diseases of the musculoskeletal system and connective tissue; Z82.49 Family history of ischemic heart disease and other diseases of the circulatory system; Z83.1 Family history of other infectious and parasitic diseases; Z53.20 Procedure and treatment not carried out because of patient's decision for unspecified reasons
CPT/HCPCS: 99285; 96365; 96361; 36415; 94640; 93005; 80053; 83605; 84484; 85025; 85610; 85730; 81003; 87040; 87086; 87502; 71046; J0696

== ENCOUNTER → 2018-09-15 | Outpatient (CLI) | payer OTHER ==
--- NOTE | 2018-09-15 17:23 | US ---
EXAMINATION TYPE: US carotid duplex BILAT DATE OF EXAM: 09/15/2018 COMPARISON: NONE CLINICAL HISTORY: G31.84 Mild cognitive impairment. no h/o stroke EXAM MEASUREMENTS: RIGHT: Peak Systolic Velocity (PSV) cm/sec ----- Right CCA: 79.5 ----- Right ICA: 118.0 ----- Right ECA: 131.0 ICA/CCA ratio: 1.4 RIGHT: End Diastole cm/sec ----- Right CCA: 21.1 ----- Right ICA: 42.7 ----- Right ECA: 18.4 LEFT: Peak Systolic Velocity (PSV) cm/sec ----- Left CCA: 92.7 ----- Left ICA: 89.4 ----- Left ECA: 173.0 ICA/CCA ratio: 1.1 LEFT: End Diastole cm/sec ----- Left CCA: 26.8 ----- Left ICA: 45.6 ----- Left ECA: 27.1 VERTEBRALS (direction of flow): Right Vertebral: Antegrade Left Vertebral: Antegrade Rhythm: Normal Mild homogeneous plaque seen with no significant stenosis IMPRESSION: Mild degree of grayscale atheromatous plaquing with no sonographically evident hemodynami wilmer significant stenosis within either internal carotid artery or common carotid artery. Criteria for Assigning % of Stenosis / Diameter reduction (Estimation based on the indirect measurements of the internal carotid artery velocities (ICA PSV). 1. Normal (no stenosis)=ICA PSV < 125 cm/s: ratio < 2.0: ICA EDV<40 cm/s. 2. Less than 50% stenosis=ICA PSV < 125 cm/s: ratio < 2.0: ICA EDV<40 cm/s. 3. 50 to 69% stenosis=ICA PSV of 125 to 230 cm/s: ration 2.0 ? 4.0: ICA EDV 40-100 cm/s. 4. Greater than 70% stenosis to near occlusion= ICA PSV > 230 cm/s: ratio > 4.0: ICA EDV > 100 cm/s. 5. Near occlusion= ICA PSV velocities may be low or undetectable: variable ratio and ICA EDV. 6. Total occlusion=unable to detect flow.
== END | disposition home or self-care (01) ==
LOC: RADUSWWP 16:02
PROVIDERS: ATTEND Psychiatry & Neurology Neurology
DX: G31.84 Mild cognitive impairment of uncertain or unknown etiology (principal); I65.29 Occlusion and stenosis of unspecified carotid artery
CPT/HCPCS: 93880

== ENCOUNTER → 2018-12-28 | Outpatient (CLI) | payer OTHER ==
--- NOTE | 2018-12-28 17:01 | XR ---
EXAMINATION TYPE: XR facial bones complete DATE OF EXAM: 12/28/2018 COMPARISON: NONE HISTORY: Pain and pressure TECHNIQUE: 3 views FINDINGS: Orbital margins are intact. There is fairly normal aeration of the paranasal sinuses. There is some mucosal thickening on the lateral wall of the left maxillary sinus. Sella turcica appears no rmal. Nasal bone appears intact. Maxilla appears intact. Mandible appears intact. IMPRESSION: Left side minimal maxillary sinusitis. Otherwise negative exam.
--- NOTE | 2018-12-28 17:02 | XR ---
EXAMINATION TYPE: XR chest 2V DATE OF EXAM: 12/28/2018 COMPARISON: 09/13/2018 HISTORY: Cough TECHNIQUE: Frontal and lateral views of the chest are obtained. FINDINGS: Heart and mediastinum are normal. Lungs are clear. Diaphragm is normal. Bony thorax appear s normal. IMPRESSION: Normal chest. There is improved inspiration compared to last exam.
[2018-12-28 17:43] LABS: Basophils # (A) 0.1 k/uL (0-0.2); Basophils % (A) 2 %; Eosinophils # (A) 0.2 k/uL (0-0.7); Eosinophils % (A) 4 %; HCT 41.1 % (39.0-53.0); HGB 13.4 gm/dL (13.0-17.5); Lymphocytes % (A) 37 %; MCHC 32.6 g/dL (31.0-37.0); MCV 86.1 fL (80.0-100.0); Mean Platelet Volume 7.5; Monocytes # (A) 0.4 k/uL (0-1.0); Monocytes % (A) 7 %; Neutrophils # (A) 2.6 k/uL (1.3-7.7); Neutrophils % (A) 47 %; Platelet Count 218 k/uL (150-450); RBC 4.77 m/uL (4.30-5.90); RDW 15.2 % (11.5-15.5); WBC 5.4 k/uL (3.8-10.6)
[2018-12-28 17:55] LABS: ALT 32 U/L (21-72); AST 23 U/L (17-59); African American GFR (CKD) >90 (>60 ml/min/1.73 sqM); Albumin 4.3 g/dL (3.5-5.0); Alkaline Phosphatase 73 U/L (38-126); Anion Gap 8 mmol/L; Blood Urea Nitrogen 17 mg/dL (9-20); Calcium 9.4 mg/dL (8.4-10.2); Carbon Dioxide 29 mmol/L (22-30); Chloride 103 mmol/L (98-107); Glucose 97 mg/dL (74-99); Potassium 4.3 mmol/L (3.5-5.1); Sodium 140 mmol/L (137-145); Total Bilirubin 0.4 mg/dL (0.2-1.3); Total Protein 7.4 g/dL (6.3-8.2)
[2018-12-28 18:13] LABS: Creatine Kinase MB 1.3 ng/mL (0.0-2.4); Troponin I <0.012 ng/mL (0.000-0.034)
== END | disposition home or self-care (01) ==
LOC: RADXRMAIN 16:27
PROVIDERS: ATTEND Nurse Practitioner
DX: J32.0 Chronic maxillary sinusitis (principal); R06.02 Shortness of breath; R07.9 Chest pain, unspecified
CPT/HCPCS: 70150; 71046; 80053; 82553; 84484; 85025

== ENCOUNTER 2019-10-02 10:20 | Day surgery (SDC) | payer OTHER ==
[2019-09-28 16:28] VITALS: BMI 30.4
[~2019-10-02 10:20] MED LIST: LACTATED RINGERS 1,000 ML IV SCH
[2019-10-02 10:41] VITALS: TEMP 97.5
[2019-10-02] MEDS ORDERED: LIDOCAINE 1% (10MG/ML) FOR IV START INTRADERMA ONE (10:42)
[2019-10-02] MEDS ORDERED: LIDOCAINE 1% INJ 10MG/ML (20 ML MDV) ONE (11:53)
[2019-10-02] MEDS ORDERED: PROPOFOL 10 MG/ML 20 ML VIAL IV ONE (11:53)
[2019-10-02 12:19] VITALS: RESP 17
--- NOTE | 2019-10-02 12:19 | P.PCN ---
Date of Procedure: 10/02/19 Description of Procedure: BRIEF HISTORY: Patient is a 64-year-old male with a long-standing history of GERD presenting for EGD for evaluation of dysphagia. He is had intermittent dysphagia for a long time but reports it is worsened recently. Predominantly for solids. He does believe he has had an EGD in the remote past in [place]. He is on PPI therapy PROCEDURE PERFORMED: Esophagogastroduodenoscopy with biopsy. PREOPERATIVE DIAGNOSIS: Esophageal dysphagia, GERD. ESTIMATED BLOOD LOSS: Minimal. IV sedation per anesthesia. PROCEDURE: After informed consent was obtained, the patient was brought into the endoscopy unit. IV sedation was administered by Anesthesia under continuous monitoring. Initially the Olympus GIF-190 video endoscope was inserted into the mouth. Esophagus intubated without any difficulty. It was gradually advanced into the stomach and duodenum and carefully examined. The bulb and the second part of the duodenum appeared normal, with biopsies taken. The scope at this time was withdrawn to the stomach, adequately insufflated with air, and upon careful exa mination, mucosa of the antrum, body, cardia and the fundus appeared normal, with biopsies of the antrum body to rule out H. pylori. A few small gastric polyps in the body of the stomach likely representing fundic gland polyps were biopsied. The scope was then withdrawn into the esophagus. The GE junction was located at 39 cm from the incisors and it appears somewhat irregular with biopsies taken. 3 cm hiatal hernia noted. The esophagus appeared normal, with minimal esophageal biopsies taken. There were no erosions or ulcerations seen and the patient tolerated the procedure well. IMPRESSION: 1. Normal-appearing esophagus with no ulceration, masses or strictures noted. 2. Biopsies of the duodenum, antrum and body, GE junction and midesophagus. 3. Hiatal hernia. 4. Gastric polyps, biopsied. RECOMMENDATIONS: The findings of this examination were discussed with the patient and his faster. Okay to resume diet. Okay to resume medications. Await pathology from biopsies. Lifestyle modifications including small bites of food, subsequent water between foods, sitting upright while eating all discussed with the patient. Can consider involuntary in the future if patient has persistent symptoms.
[2019-10-02 12:27] VITALS: BP 112/73; PULSE 74
== END 2019-10-02 12:51 | disposition home or self-care (01) ==
LOC: ORWHC2ENDO 10:20
PROVIDERS: ATTEND Internal Medicine
DX: K22.70 Barrett's esophagus without dysplasia (principal); K31.7 Polyp of stomach and duodenum; K21.9 Gastro-esophageal reflux disease without esophagitis; K44.9 Diaphragmatic hernia without obstruction or gangrene; I10 Essential (primary) hypertension; J44.9 Chronic obstructive pulmonary disease, unspecified; E78.5 Hyperlipidemia, unspecified; H91.8X2 Other specified hearing loss, left ear; Z79.82 Long term (current) use of aspirin; Z79.02 Long term (current) use of antithrombotics/antiplatelets; Z79.899 Other long term (current) drug therapy; Z87.891 Personal history of nicotine dependence; Z98.890 Other specified postprocedural states
CPT/HCPCS: 88305; 43239; J2001; J2704

== ENCOUNTER 2019-10-10 09:38 | Emergency (ER) | payer OTHER ==
[2019-10-10 09:47] VITALS: BP 140/85; PULSE 86; RESP 18; TEMP 98.3
[2019-10-10] MEDS ORDERED: DIPH,PERTUS(ACELL)TETVAC-LF 0.5 ML VIAL IM ONE (09:52)
[2019-10-10] MEDS ORDERED: LIDOCAINE 1% INJ 10MG/ML (20 ML MDV) SQ ONE (09:53)
--- NOTE | 2019-10-10 09:54 | ED ---
Wound/Laceration HPI - General Chief Complaint: Wound/Laceration Stated Complaint: arm lac Time Seen by Provider: 10/10/19 09:48 Source: patient, RN notes reviewed Mode of arrival: ambulatory Limitations: no limitations - History of Present Illness Initial Comments: 64-year-old male present emergency from chief complaint of laceration to his right forearm. He states that it happened at work. He states that some metal banding cut his right arm. Patient is unsure when his last tetanus was. Denies any numbness or tingling no decreased range of motion. Patient offers no other complaints. - Related Data Home Medications Medication Instructions Recorded Confirmed Tamsulosin HCl [Flomax] 0.4 mg PO HS 08/14/14 10/02/19 Albuterol Nebulized [Ventolin 2.5 mg INHALATION RT-QID PRN 06/29/18 10/02/19 Nebulized] Aspirin EC [Ecotrin Low Dose] 81 mg PO DAILY 06/29/18 10/02/19 Atorvastatin Calcium [Lipitor] 80 mg PO HS 06/29/18 10/02/19 Carvedilol [Coreg] 3.125 mg PO BID 06/29/18 10/02/19 Cetirizine HCl [Zyrtec] 10 mg PO DAILY 06/29/18 10/02/19 Finasteride [Proscar] 5 mg PO DAILY 06/29/18 10/02/19 Ipratropium/Albuterol Sulfate 1 puff INHALATION RT-QID PRN 06/29/18 10/02/19 [Combivent Respimat Inhaler] Isosorbide Mononitrate ER [Imdur] 30 mg PO DAILY 06/29/18 10/02/19 Nitroglycerin Sl Tabs [Nitrostat] 0.4 mg SUBLINGUAL Q5M PRN 06/29/18 10/02/19 Omeprazole 40 mg PO BID 06/29/18 10/02/19 Sertraline HCl [Zoloft] 50 mg PO DAILY 06/29/18 10/02/19 rOPINIRole HCL [Requip] 0.25 mg PO HS 06/29/18 10/02/19 Cholecalciferol [Vitamin D3 (25 5,000 unit PO DAILY 09/13/18 10/02/19 Mcg = 1000 Iu)] Meloxicam [Mobic] 7.5 mg PO DAILY 09/13/18 10/02/19 Cyanocobalamin (Vitamin B-12) 1,000 mcg PO DAILY 09/28/19 10/02/19 [Vitamin B-12] Allergies Allergy/AdvReac Type Severity Reaction Status Date / Time No Known Allergies Allergy Verified 10/10/19 09:48 Review of Systems ROS Statement: Those systems with pertinent positive or pertinent negative responses have been documented in the HPI. ROS Other: All systems not noted in ROS Statement are negative. Past Medical History Past Medical History: COPD, GERD/Reflux, Hearing Disorder / Deafness, Hyperlipidemia, Hypertension Additional Past Medical History / Comment(s): , LT EAR DEAF-READS LIPS, CARPAL TUNNEL. History of Any Multi-Drug Resistant Organisms: None Reported Past Surgical History: No Surgical Hx Reported Additional Past Surgical History / Comment(s): rt carpal tunnel sx, upper scope Past Anesthesia/Blood Transfusion Reactions: No Reported Reaction Past Psychological History: No Psychological Hx Reported Smoking Status: Former smoker - Past Family History Sister(s) Family Medical History: Cancer Father Family Medical History: Myocardial Infarction ([place]) Mother Family Medical History: Cancer, Hypertension, Liver Disease Additional Family Medical History / Comment(s): tb in 1967, breast cancer General Exam Limitations: no limitations General appearance: alert, in no apparent distress Head exam: Present: atraumatic, normocephalic, normal inspection Respiratory exam: Present: normal lung sounds bilaterally. Absent: respiratory distress, wheezes, rales, rhonchi, stridor Cardiovascular Exam: Present: regular rate, normal rhythm, normal heart sounds. Absent: systolic murmur, diastolic murmur, rubs, gallop, clicks Extremities exam: Present: other (right forearm there is a superficial 2 cm laceration no active bleeding full range of motion neurovascular intact.) Skin exam: Present: warm, dry, intact, normal color. Absent: rash Course Vital Signs 10/10/19 09:44 Temperature 98.3 F Pulse Rate 86 Respiratory 18 Rate Blood Pressure 140/85 O2 Sat by Pulse 98 Oximetry Procedures - Laceration Laceration #1 Consent Obtained: verbal consent Indication: laceration Site: upper extremity (Right forearm) Size (cm): 2 Description: linear Depth: simple, single layer Anesthetic Used: lidocaine 1%, without epi Anesthesia Technique: local infiltration Amount (mls): 4 Pre-repair: wound explored, irrigated extensively, deep structures intact Type of Sutures: nylon Size of Sutures: 4-0 Number of Sutures: 3 Technique: simple, interrupted Patient Tolerated Procedure: well, no complications Medical Decision Making - Medical Decision Making Laceration was repaired simple laceration no foreign bodies no deep structure injuries. Wound care and return parameters were given Disposition Clinical Impression: Laceration of right forearm Disposition: HOME SELF-CARE Condition: Stable Instructions (If sedation given, give patient instructions): Laceration (ED), Care For Your Stitches (ED) Additional Instructions: Please return to the Emergency Department if symptoms worsen or any other concerns. Have sutures removed in 10 days. Is patient prescribed a controlled substance at d/c from ED?: No Referrals: [facility],Clinic [Primary Care Provider] - 1-2 days Time of Disposition: 10:07
== END 2019-10-10 10:07 | disposition home or self-care (01) ==
LOC: EC 09:38
DX: S51.811A Laceration without foreign body of right forearm, initial encounter (principal); J44.9 Chronic obstructive pulmonary disease, unspecified; K21.9 Gastro-esophageal reflux disease without esophagitis; I10 Essential (primary) hypertension; E78.5 Hyperlipidemia, unspecified; Z79.899 Other long term (current) drug therapy; Z87.891 Personal history of nicotine dependence; Z23 Encounter for immunization; W26.8XXA Contact with other sharp object(s), not elsewhere classified, initial encounter; Y93.89 Activity, other specified; Y92.69 Other specified industrial and construction area as the place of occurrence of the external cause; Y99.0 Civilian activity done for income or pay
CPT/HCPCS: 90715; 99282; 12001; 90471; J2001

== ENCOUNTER 2020-02-11 10:08 | Observation (INO) | payer OTHER ==
[2020-02-11] MEDS ORDERED: ASPIRIN 81 MG PO STA (10:26)
[2020-02-11] MEDS ORDERED: NITROGLYCERIN OINT 1 INCH/GM PACKET TOPICAL STA (10:26)
--- NOTE | 2020-02-11 10:33 | ED ---
General Adult HPI - General Chief complaint: Chest Pain Stated complaint: chest pain Time Seen by Provider: 02/11/20 10:10 Source: patient, RN notes reviewed, old records reviewed Mode of arrival: ambulatory Limitations: no limitations - History of Present Illness Initial comments: This a 64-year-old male with past medical history significant for high blood pressure and high cholesterol. Patient states yesterday after he was doing some raking he went home and all of a sudden he started having left-sided chest pain. Patient thinks the pain seems to be worse with movement but it's there even when he is not moving. Patient denies any difficulty breathing shortness of breath per patient denies any radiation of the pain to the back neck or arm. P atient denies shortness of breath or difficulty breathing. Patient denies any recent fever chills or cough. Patient denies any nausea vomiting. Patient denies abdominal pain. Patient denies any back pain. Patient denies headache patient denies numbness weakness. Patient lightheadedness dizziness or near syncopal episode. - Related Data Home Medications Medication Instructions Recorded Confirmed Tamsulosin HCl [Flomax] 0.4 mg PO HS 08/14/14 02/11/20 Albuterol Nebulized [Ventolin 2.5 mg INHALATION RT-Q4H PRN 06/29/18 02/11/20 Nebulized] Aspirin EC [Ecotrin Low Dose] 81 mg PO DAILY 06/29/18 02/11/20 Atorvastatin Calcium [Lipitor] 80 mg PO HS 06/29/18 02/11/20 Cetirizine HCl [Zyrtec] 10 mg PO DAILY 06/29/18 02/11/20 Finasteride [Proscar] 5 mg PO DAILY 06/29/18 02/11/20 Isosorbide Mononitrate ER [Imdur] 30 mg PO DAILY 06/29/18 02/11/20 Nitroglycerin Sl Tabs [Nitrostat] 0.4 mg SUBLINGUAL Q5M PRN 06/29/18 02/11/20 Omeprazole 40 mg PO BID 06/29/18 02/11/20 Sertraline HCl [Zoloft] 50 mg PO DAILY 06/29/18 02/11/20 carvediloL [Coreg] 3.125 mg PO BID 06/29/18 02/11/20 Cholecalciferol [Vitamin D3 (25 2,000 unit PO DAILY 09/13/18 02/11/20 Mcg = 1000 Iu)] Ascorbic Acid [Vitamin C] 250 mg PO DAILY 02/11/20 02/11/20 Budesonide [Pulmicort] 0.5 mg INHALATION RT-BID 02/11/20 02/11/20 Ferrous Sulfate [Feosol] 325 mg PO DAILY 02/11/20 02/11/20 Meloxicam [Mobic] 15 mg PO DAILY 02/11/20 02/11/20 Montelukast [Singulair] 10 mg PO DAILY 02/11/20 02/11/20 Pramipexole [Mirapex] 0.25 mg PO BID@1600,2100 02/11/20 02/11/20 Allergies Allergy/AdvReac Type Severity Reaction Status Date / Time No Known Allergies Allergy Verified 02/11/20 11:15 Review of Systems ROS Statement: Those systems with pertinent positive or pertinent negative responses have been documented in the HPI. ROS Other: All systems not noted in ROS Statement are negative. Past Medical History Past Medical History: Chest Pain / Angina, COPD, GERD/Reflux, Hearing Disorder / Deafness, Hyperlipidemia, Hypertension Additional Past Medical History / Comment(s): , LT EAR DEAF-READS LIPS, CARPAL TUNNEL. History of Any Multi-Drug Resistant Organisms: None Reported Past Surgical History: No Surgical Hx Reported Additional Past Surgical History / Comment(s): rt carpal tunnel sx, upper scope Past Anesthesia/Blood Transfusion Reactions: No Reported Reaction Past Psychological History: No Psychological Hx Reported Smoking Status: Never smoker Past Alcohol Use History: Rare Past Drug Use History: None Reported - Past Family History Sister(s) Family Medical History: Cancer Father Family Medical History: Myocardial Infarction ([place]) Mother Family Medical History: Cancer, Hypertension, Liver Disease Additional Family Medical History / Comment(s): tb in 1968, breast cancer General Exam - General Exam Comments Initial Comments: GENERAL: Patient is well-developed and well-nourished. Patient is nontoxic and well- hydrated and is in mild distress. ENT: Neck is soft and supple. No significant lymphadenopathy is noted. Oropharynx is clear. Moist mucous membranes. Neck has full range of motion without eliciting any pain. There is no thyroid enlargement and no masses were felt. EYES: The sclera were anicteric and conjunctiva were pink and moist. Extraocular movements were intact and pupils were equal round and reactive to light. Eyelids were unremarkable. PULMONARY: Unlabored respirations. Good breath sounds bilaterally. No audible rales rhonchi or wheezing was noted. CARDIOVASCULAR: There is a regular rate and rhythm without any murmurs gallops or rubs. ABDOMEN: Soft and nontender with normal bowel sounds. SKIN: Skin is clear with no lesions or rashes and otherwise unremarkable. NEUROLOGIC: Patient is alert and oriented x3. Cranial nerves II through XII are grossly intact. Motor and sensory are also intact. Normal speech, volume and content. Symmetrical smile. MUSCULOSKELETAL: Normal extremities with adequate strength and full range of motion. LYMPHATICS: No significant lymphadenopathy is noted PSYCHIATRIC: Normal psychiatric evaluation. Limitations: no limitations Course Vital Signs 02/11/20 02/11/20 10:12 11:34 Temperature 98.4 F Pulse Rate 92 78 Respiratory 18 18 Rate Blood Pressure 134/81 118/75 O2 Sat by Pulse 98 99 Oximetry Medical Decision Making - Medical Decision Making EKG shows normal sinus rhythm at 83 bpm MO interval 162 QRS is 82 QT interval 346 QTC is 46. Patient's EKG shows no ST segment elevation or depression. I went back in the room to reevaluate the patient he stated that the Nitropaste decreased his pain. I spoke with the [facility] significant admit the patient admitted the patient I can't assess for Nitropaste and heparin on the floor. - Lab Data Result diagrams: 02/11/20 10:38 02/11/20 10:38 Lab Results 02/11/20 02/11/20 02/11/20 Range/Units 10:38 10:38 10:38 WBC 5.5 (3.8-10.6) k/uL RBC 4.94 (4.30-5.90) m/uL Hgb 14.6 (13.0-17.5) gm/dL Hct 45.0 (39.0-53.0) % MCV 91.1 (80.0-100.0) fL MCH 29.7 (25.0-35.0) pg MCHC 32.6 (31.0-37.0) g/dL RDW 13.4 (11.5-15.5) % Plt Count 219 (150-450) k/uL Neutrophils % 62 % Lymphocytes % 25 % Monocytes % 7 % Eosinophils % 3 % Basophils % 1 % Neutrophils # 3.4 (1.3-7.7) k/uL Lymphocytes # 1.4 (1.0-4.8) k/uL Monocytes # 0.4 (0-1.0) k/uL Eosinophils # 0.2 (0-0.7) k/uL Basophils # 0.1 (0-0.2) k/uL PT 9.6 (9.0-12.0) sec INR 0.9 (<1.2) APTT 21.5 L (22.0-30.0) sec Sodium 139 (137-145) mmol/L Potassium 3.9 (3.5-5.1) mmol/L Chloride 108 H (98-107) mmol/L Carbon Dioxide 25 (22-30) mmol/L Anion Gap 6 mmol/L BUN 18 (9-20) mg/dL Creatinine 0.74 (0.66-1.25) mg/dL Est GFR (CKD-EPI)AfAm >90 (>60 ml/min/1.73 sqM) Est GFR (CKD-EPI)NonAf >90 (>60 ml/min/1.73 sqM) Glucose 125 H (74-99) mg/dL Calcium 9.5 (8.4-10.2) mg/dL Magnesium 1.7 (1.6-2.3) mg/dL Total Bilirubin 0.5 (0.2-1.3) mg/dL AST 23 (17-59) U/L ALT 21 (4-49) U/L Alkaline Phosphatase 70 (38-126) U/L Troponin I (0.000-0.034) ng/mL Total Protein 7.2 (6.3-8.2) g/dL Albumin 4.1 (3.5-5.0) g/dL 02/11/20 Range/Units 10:38 WBC (3.8-10.6) k/uL RBC (4.30-5.90) m/uL Hgb (13.0-17.5) gm/dL Hct (39.0-53.0) % MCV (80.0-100.0) fL MCH (25.0-35.0) pg MCHC (31.0-37.0) g/dL RDW (11.5-15.5) % Plt Count (150-450) k/uL Neutrophils % % Lymphocytes % % Monocytes % % Eosinophils % % Basophils % % Neutrophils # (1.3-7.7) k/uL Lymphocytes # (1.0-4.8) k/uL Monocytes # (0-1.0) k/uL Eosinophils # (0-0.7) k/uL Basophils # (0-0.2) k/uL PT (9.0-12.0) sec INR (<1.2) APTT (22.0-30.0) sec Sodium (137-145) mmol/L Potassium (3.5-5.1) mmol/L Chloride (98-107) mmol/L Carbon Dioxide (22-30) mmol/L Anion Gap mmol/L BUN (9-20) mg/dL Creatinine (0.66-1.25) mg/dL Est GFR (CKD-EPI)AfAm (>60 ml/min/1.73 sqM) Est GFR (CKD-EPI)NonAf (>60 ml/min/1.73 sqM) Glucose (74-99) mg/dL Calcium (8.4-10.2) mg/dL Magnesium (1.6-2.3) mg/dL Total Bilirubin (0.2-1.3) mg/dL AST (17-59) U/L ALT (4-49) U/L Alkaline Phosphatase (38-126) U/L Troponin I <0.012 (0.000-0.034) ng/mL Total Protein (6.3-8.2) g/dL Albumin (3.5-5.0) g/dL Critical Care Time Critical Care Time: Yes Total Critical Care Time: 35 Disposition Clinical Impression: Unstable angina pectoris Disposition: ADMITTED IP TO THIS HOSP Referrals: [facility],Clinic [Primary Care Provider] - 1-2 days Time of Disposition: 11:48
[2020-02-11 10:49] LABS: Basophils # (A) 0.1 k/uL (0-0.2); Basophils % (A) 1 %; Eosinophils # (A) 0.2 k/uL (0-0.7); Eosinophils % (A) 3 %; HGB 14.6 gm/dL (13.0-17.5); Lymphocytes # (A) 1.4 k/uL (1.0-4.8); Lymphocytes % (A) 25 %; MCH 29.7 pg (25.0-35.0); MCHC 32.6 g/dL (31.0-37.0); MCV 91.1 fL (80.0-100.0); Mean Platelet Volume 8.1; Monocytes # (A) 0.4 k/uL (0-1.0); Monocytes % (A) 7 %; Neutrophils # (A) 3.4 k/uL (1.3-7.7); Neutrophils % (A) 62 %; Platelet Count 219 k/uL (150-450); RBC 4.94 m/uL (4.30-5.90); RDW 13.4 % (11.5-15.5); WBC 5.5 k/uL (3.8-10.6)
[2020-02-11 10:54] LABS: ALT 21 U/L (4-49); AST 23 U/L (17-59); African American GFR (CKD) >90 (>60 ml/min/1.73 sqM); Albumin 4.1 g/dL (3.5-5.0); Alkaline Phosphatase 70 U/L (38-126); Anion Gap 6 mmol/L; Blood Urea Nitrogen 18 mg/dL (9-20); Calcium 9.5 mg/dL (8.4-10.2); Carbon Dioxide 25 mmol/L (22-30); Chloride 108 mmol/L (98-107); Glucose 125 mg/dL (74-99); Magnesium 1.7 mg/dL (1.6-2.3); Non-African American GFR(CKD) >90 (>60 ml/min/1.73 sqM); Potassium 3.9 mmol/L (3.5-5.1); Sodium 139 mmol/L (137-145); Total Bilirubin 0.5 mg/dL (0.2-1.3); Total Protein 7.2 g/dL (6.3-8.2)
--- NOTE | 2020-02-11 11:00 | XR ---
EXAMINATION TYPE: XR chest 2V DATE OF EXAM: 02/11/2020 COMPARISON: 12/28/2018 INDICATION: Chest pain TECHNIQUE: Frontal and lateral views of the chest are obtained. FINDINGS: The heart size is normal. The pulmonary vasculature is normal. The lungs are clear. IMPRESSION: 1. No acute pulmonary process.
[2020-02-11 11:05] LABS: INR 0.9 (<1.2); Prothrombin Time 9.6 sec (9.0-12.0)
[2020-02-11 11:23] LABS: Partial Thromboplastin Time 21.5 sec (22.0-30.0)
[2020-02-11] MEDS ORDERED: NITROGLYCERIN SL TABS 0.4 MG TAB SUBLINGUAL PRN (11:48)
[2020-02-11] MEDS ORDERED: HEPARIN SODIUM,PORCINE 5,000 UNIT/ML 1 ML VIAL IV ONE (11:48)
[2020-02-11] MEDS ORDERED: HEPARIN SOD,PORK IN 0.45% NACL 25,000 UNIT in 0.45% NACL 1 250ML.BAG IV SCH (12:00)
[2020-02-11] MEDS: MORPHINE SULFATE 2 MG/ML SYRINGE IVP PRN ×2 (14:28→20:41)
[2020-02-11] MEDS: PANTOPRAZOLE 40 MG TABLET PO SCH (16:53)
[2020-02-11] MEDS: carvediloL 3.125 MG TAB PO SCH (16:54)
[2020-02-11] MEDS: KETOROLAC 15 MG/ML 1 ML VIAL IVP SCH (16:55)
[2020-02-11] MEDS: ALBUTEROL NEBULIZED 2.5 MG/3 ML INHALATION PRN ×2 (16:57→20:10)
--- NOTE | 2020-02-11 17:47 | XR ---
EXAMINATION TYPE: XR ribs bilateral DATE OF EXAM: 02/11/2020 COMPARISON: Chest x-ray from earlier today. HISTORY: Bilateral pain. TECHNIQUE: Frontal and oblique images bilateral ribs. FINDINGS: No acute displaced rib fracture is evident bilaterally. Overlying soft tissue is unremarkab le. Visualized lungs remain clear. IMPRESSION: As above.
[2020-02-11] MEDS: PRAMIPEXOLE 0.25 MG TAB PO SCH ×2 (17:52→20:41)
[2020-02-11] MEDS ORDERED: HEPARIN SODIUM,PORCINE 5,000 UNIT/ML 1 ML VIAL IV PRN (18:56)
[2020-02-11] MEDS: BUDESONIDE 0.5 MG/2 ML NEBU INHALATION SCH (20:10)
[2020-02-11] MEDS ORDERED: TAMSULOSIN 0.4 MG CAP.ER.24H PO SCH (21:00)
[2020-02-11] MEDS ORDERED: ATORVASTATIN 80 MG TAB PO SCH (21:00)
[2020-02-12] MEDS: KETOROLAC 15 MG/ML 1 ML VIAL IVP SCH
[2020-02-12] MEDS: NITROGLYCERIN OINT 1 INCH/GM PACKET TOPICAL SCH ×3 (00:10→06:30)
[2020-02-12 05:34] LABS: Cholesterol 244 mg/dL (<200); HDL Cholesterol 42 mg/dL (40-60); LDL Cholesterol,Calculated 125 mg/dL (0-99); Triglycerides 384 mg/dL (<150)
[2020-02-12] MEDS: PANTOPRAZOLE 40 MG TABLET PO SCH (06:30)
[2020-02-12] MEDS: carvediloL 3.125 MG TAB PO SCH (06:30)
[2020-02-12] MEDS: BUDESONIDE 0.5 MG/2 ML NEBU INHALATION SCH (08:18)
[2020-02-12 08:22] VITALS: BP 127/74; PULSE 84; RESP 16; TEMP 97.4
[2020-02-12] MEDS ORDERED: MELOXICAM 7.5 MG TAB PO SCH (09:00)
[2020-02-12] MEDS ORDERED: ASCORBIC ACID 500 MG TAB PO SCH (09:00)
[2020-02-12] MEDS ORDERED: ASPIRIN 81 MG PO SCH (09:00)
[2020-02-12] MEDS ORDERED: CHOLECALCIFEROL 1,000 UNIT TAB PO SCH (09:00)
[2020-02-12] MEDS ORDERED: MONTELUKAST 10 MG TAB PO SCH (09:00)
[2020-02-12] MEDS ORDERED: ASPIRIN 325 MG TAB PO SCH (09:00)
[2020-02-12] MEDS ORDERED: ISOSORBIDE MONONITRATE ER 30 MG TAB.ER.24H PO SCH (09:00)
[2020-02-12] MEDS ORDERED: SERTRALINE 50 MG TAB PO SCH (09:00)
[2020-02-12] MEDS ORDERED: FERROUS SULFATE 325 MG TAB PO SCH (09:00)
[2020-02-12] MEDS ORDERED: LORATADINE 10 MG TAB PO SCH (09:00)
[2020-02-12] MEDS ORDERED: FINASTERIDE 5 MG TAB PO SCH (09:00)
--- NOTE | 2020-02-12 09:41 | P.CRDCN ---
History of Present Illness History of present illness: HISTORY OF PRESENTING ILLNESS This is a pleasant 64-year-old male past medical history significant for hypertension, dyslipidemia, gastroesophageal reflux disease, COPD and former nicotine dependence. He states he has undergone 2 cardiac catheterizations in the past and has been diagnosed with chronic angina. He has no stents. He follows in the office with quality assurance representative in [facility], he is unsure of her name. We have been asked to see in consultation for chest pain. He states he was raking leaves at the scientology on Wednesday when he had an acute onset of pain in the mid-sternal region that felt like "someone ripping my ribs apart." He states the pain was intense and excrutiating. There was no radiation of pain and no associated symptoms. The pain has been going on since that time with no real improvement. The pain is reproducible on palpation. DIAGNOSTICS EKG reveals sinus mechanism with no acute ST or T-wave abnormalities. Chest xray negative for an acute cardiopulmonary process. Rib x-ray reveals no acute displaced fractures bilaterally. Laboratory reviewed, CBC unremarkable, sodium 139, potassium 3.9, creatinine 0.74, magnesium 1.7, troponin negative 3, LDL 125 and HDL 42. Current cardiac medications include aspirin 81 mg daily, atorvastatin 80 mg at bedtime, Imdur 30 mg daily and Coreg 3.125 mg twice a day. REVIEW OF SYSTEMS At the time of my exam: CONSTITUTIONAL: Denies fever or chills. CARDIOVASCULAR: Denies chest pain, shortness of breath, orthopnea, PND or palpitations. RESPIRATORY: Denies cough. GASTROINTESTINAL: Denies abdominal pain, diarrhea, constipation, nausea or vomiting. MUSCULOSKELETAL: Complains of chest wall tenderness. NEUROLOGIC: Denies numbness, tingling or weakness. ENDOCRINE: Denies fatigue, weight change, polydipsia or polyurina. GENITOURINARY: Denies burning, hematuria or urgency with micturation. HEMATOLOGIC: Denies history of anemia or bleeding. PHYSICAL EXAMINATION Blood pressure 127/74 heart rate 84 afebrile and maintaining oxygen saturation on room air. CONSTITUTIONAL: No apparent distress. HEENT: Head is normocephalic. Pupils are equal, round. Sclerae anicteric. Mucous membranes of the mouth are moist. No JVD. No carotid bruit. CHEST EXAMINATION: Lungs are clear to auscultation. No chest wall tenderness is noted on palpation or with deep breathing. HEART EXAMINATION: Regular rate and rhythm. S1, S2 heard. No murmurs, gallops or rub. ABDOMEN: Soft, nontender. Positive bowel sounds. EXTREMITIES: 2+ peripheral pulses, no lower extremity edema and no calf tenderness. NEUROLOGIC EXAMINATION: Patient is awake, alert and oriented x3. ASSESSMENT Chest wall pain, atypical for angina. Musculoskeletal injury Hypertension Dyslipidemia, uncontrolled COPD Gastroesophageal reflux disease Former nicotine dependence PLAN Pain is atypical for angina with significant tenderness on palpation. An acute coronary event has been ruled out. Discontinue heparin infusion and Nitropaste. Recommend treatment musculoskeletal injury with anti-inflammatories. No further cardiac workup at this time. Follow-up with his primary quality assurance representative upon discharge. Thank you kindly for this consultation. Nurse Practitioner note has been reviewed, I agree with a documented findings and plan of care. Patient was seen and examined. Past Medical History Past Medical History: Chest Pain / Angina, COPD, GERD/Reflux, Hearing Disorder / Deafness, Hyperlipidemia, Hypertension Additional Past Medical History / Comment(s): , LT EAR DEAF-READS LIPS, CARPAL TUNNEL. History of Any Multi-Drug Resistant Organisms: None Reported Past Surgical History: No Surgical Hx Reported Additional Past Surgical History / Comment(s): rt carpal tunnel sx, upper scope Past Anesthesia/Blood Transfusion Reactions: No Reported Reaction Past Psychological History: No Psychological Hx Reported Additional Psychological History / Comment(s): pt lives alone cares for self. 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 Smoking Status: Former smoker Past Alcohol Use History: Rare Additional Past Alcohol Use History / Comment(s): started smoking at age 10- smoked 1ppd quit 2008, used to drink occ but none since 1994 Past Drug Use History: None Reported - Past Family History Sister(s) Family Medical History: Cancer Father Family Medical History: Myocardial Infarction ([place]) Mother Family Medical History: Cancer, Hypertension, Liver Disease Additional Family Medical History / Comment(s): tb in 1967, breast cancer Medications and Allergies Home Medications Medication Instructions Recorded Confirmed Type Tamsulosin HCl [Flomax] 0.4 mg PO HS 08/14/14 02/11/20 History Albuterol Nebulized [Ventolin 2.5 mg INHALATION RT-Q4H PRN 06/29/18 02/11/20 History Nebulized] Aspirin EC [Ecotrin Low Dose] 81 mg PO DAILY 06/29/18 02/11/20 History Atorvastatin Calcium [Lipitor] 80 mg PO HS 06/29/18 02/11/20 History Cetirizine HCl [Zyrtec] 10 mg PO DAILY 06/29/18 02/11/20 History Finasteride [Proscar] 5 mg PO DAILY 06/29/18 02/11/20 History Isosorbide Mononitrate ER [Imdur] 30 mg PO DAILY 06/29/18 02/11/20 History Nitroglycerin Sl Tabs [Nitrostat] 0.4 mg SUBLINGUAL Q5M PRN 06/29/18 02/11/20 H istory Omeprazole 40 mg PO BID 06/29/18 02/11/20 History Sertraline HCl [Zoloft] 50 mg PO DAILY 06/29/18 02/11/20 History carvediloL [Coreg] 3.125 mg PO BID 06/29/18 02/11/20 History Cholecalciferol [Vitamin D3 (25 2,000 unit PO DAILY 09/13/18 02/11/20 History Mcg = 1000 Iu)] Ascorbic Acid [Vitamin C] 250 mg PO DAILY 02/11/20 02/11/20 History Budesonide [Pulmicort] 0.5 mg INHALATION RT-BID 02/11/20 02/11/20 History Ferrous Sulfate [Feosol] 325 mg PO DAILY 02/11/20 02/11/20 History Meloxicam [Mobic] 15 mg PO DAILY 02/11/20 02/11/20 History Montelukast [Singulair] 10 mg PO DAILY 02/11/20 02/11/20 History Pramipexole [Mirapex] 0.25 mg PO BID@1600,2100 02/11/20 02/11/20 History Allergies Allergy/AdvReac Type Severity Reaction Status Date / Time No Known Allergies Allergy Verified 02/11/20 11:15 Physical Exam Vitals: Vital Signs Temp Pulse Pulse Resp BP BP Pulse Ox 02/12/20 08:21 97.4 F L 84 16 127/74 99 02/12/20 03:16 97.8 F 75 18 113/68 95 02/11/20 20:32 68 18 02/11/20 20:30 97.6 F 68 18 113/69 97 02/11/20 20:22 74 02/11/20 20:12 74 02/11/20 17:08 68 02/11/20 16:58 68 02/11/20 15:35 78 16 122/79 98 02/11/20 13:23 98 02/11/20 12:42 97.8 F 77 16 145/70 99 02/11/20 12:35 98.3 F 68 18 107/64 98 02/11/20 11:34 78 18 118/75 99 02/11/20 10:12 98.4 F 92 18 134/81 98 Intake and Output 02/11/20 02/12/20 02/12/20 22:59 06:59 14:59 Intake Total 64.167 92.557 Balance 64.167 92.557 Intake: Intake, IV Titration 64.167 92.557 Amount Heparin Sod,Pork in 0.45% 64.167 92.557 NaCl 25,000 unit In 0.45 % NaCl 1 250ml.bag @ 10. 86 UNITS/KG/HR 10 mls/hr IV .Q24H [facility] Rx#: [id number] Other: Voiding Method Toilet Toilet Toilet # Voids 1 2 Results 02/11/20 10:38 02/11/20 10:38 Cardiac Enzymes 02/11/20 02/11/20 02/11/20 Range/Units 10:38 10:38 13:07 AST 23 (17-59) U/L Troponin I <0.012 <0.012 (0.000-0.034) ng/mL 02/11/20 Range/Units 17:35 AST (17-59) U/L Troponin I <0.012 (0.000-0.034) ng/mL Coagulation 02/11/20 02/11/20 02/12/20 Range/Units 10:38 17:35 01:18 PT 9.6 (9.0-12.0) sec APTT 21.5 L 42.9 H 43.7 H (22.0-30.0) sec Lipids 02/12/20 Range/Units 01:18 Triglycerides 384 H (<150) mg/dL Cholesterol 244 H (<200) mg/dL HDL Cholesterol 42 (40-60) mg/dL CBC 02/11/20 Range/Units 10:38 WBC 5.5 (3.8-10.6) k/uL RBC 4.94 (4.30-5.90) m/uL Hgb 14.6 (13.0-17.5) gm/dL Hct 45.0 (39.0-53.0) % Plt Count 219 (150-450) k/uL Comprehensive Metabolic Panel 02/11/20 Range/Units 10:38 Sodium 139 (137-145) mmol/L Potassium 3.9 (3.5-5.1) mmol/L Chloride 108 H (98-107) mmol/L Carbon Dioxide 25 (22-30) mmol/L BUN 18 (9-20) mg/dL Creatinine 0.74 (0.66-1.25) mg/dL Glucose 125 H (74-99) mg/dL Calcium 9.5 (8.4-10.2) mg/dL AST 23 (17-59) U/L ALT 21 (4-49) U/L Alkaline Phosphatase 70 (38-126) U/L Total Protein 7.2 (6.3-8.2) g/dL Albumin 4.1 (3.5-5.0) g/dL Current Medications Generic Name Dose Route Start Last Admin Trade Name Freq PRN Reason Stop Dose Admin Albuterol Sulfate 2.5 mg 02/11/20 13:47 02/11/20 20:10 Albuterol Nebulized 2.5 Mg/3 Ml INHALATION 2.5 mg RT-Q4H PRN Administration Shortness Of Breath Ascorbic Acid 500 mg 02/12/20 09:00 02/12/20 08:30 Ascorbic Acid 500 Mg Tab PO 500 mg DAILY [facility] Administration Aspirin 81 mg 02/12/20 09:00 02/12/20 08:30 Aspirin 81 Mg PO 81 mg DAILY [facility] Administration Atorvastatin Calcium 80 mg 02/11/20 21:00 02/11/20 20:41 Atorvastatin 80 Mg Tab PO 80 mg HS [facility] Administration Budesonide 0.5 mg 02/11/20 20:00 02/12/20 08:18 Budesonide 0.5 Mg/2 Ml Nebu INHALATION Not Given RT-BID [facility] Carvedilol 3.125 mg 02/11/20 17:30 02/12/20 06:30 Carvedilol 3.125 Mg Tab PO 3.125 mg BID-W/MEALS [facility] Administration Cholecalciferol 2,000 unit 02/12/20 09:00 02/12/20 08:31 Cholecalciferol 1,000 Unit Tab PO 2,000 unit DAILY [facility] Administration Ferrous Sulfate 325 mg 02/12/20 09:00 02/12/20 08:30 Ferrous Sulfate 325 Mg Tab PO 325 mg DAILY [facility] Administration Finasteride 5 mg 02/12/20 09:00 02/12/20 08:31 Finasteride 5 Mg Tab PO 5 mg DAILY [facility] Administration Heparin Sodium (Porcine) 0 unit 02/11/20 18:56 02/12/20 02:44 Heparin Sodium,Porcine 5,000 Unit/Ml 1 Ml Vial IV 2,300 unit Q6HR PRN Administration Low PTT Protocol Isosorbide Mononitrate 30 mg 02/12/20 09:00 02/12/20 08:30 Isosorbide Mononitrate Er 30 Mg Tab.Er.24h PO 30 mg DAILY [facility] Administration Loratadine 10 mg 02/12/20 09:00 02/12/20 08:31 Loratadine 10 Mg Tab PO 10 mg DAILY [facility] Administration Meloxicam 15 mg 02/12/20 09:00 02/12/20 08:30 Meloxicam 7.5 Mg Tab PO 15 mg DAILY [facility] Administration Montelukast Sodium 10 mg 02/12/20 09:00 02/12/20 08:30 Montelukast 10 Mg Tab PO 10 mg DAILY [facility] Administration Morphine Sulfate 2 mg 02/11/20 13:47 02/11/20 20:41 Morphine Sulfate 2 Mg/Ml Syringe IVP 2 mg Q4H PRN Administration Pain/Discomfort Nitroglycerin 0.4 mg 02/11/20 11:48 02/11/20 13:34 Nitroglycerin Sl Tabs 0.4 Mg Tab SUBLINGUAL 0.4 mg Q5M PRN Administration Chest Pain Pantoprazole Sodium 40 mg 02/11/20 17:30 02/12/20 06:30 Pantoprazole 40 Mg Tablet PO 40 mg AC-BID [facility] Administration Pramipexole Dihydrochloride 0.25 mg 02/11/20 16:00 02/11/20 20:41 Pramipexole 0.25 Mg Tab PO 0.25 mg BID@1600,2100 [facility] Administration Sertraline HCl 50 mg 02/12/20 09:00 11/02/20 08:30 Sertraline 50 Mg Tab PO 50 mg DAILY [facility] Administration Tamsulosin HCl 0.4 mg 02/11/20 21:00 02/11/20 20:41 Tamsulosin 0.4 Mg Cap.Er.24h PO 0.4 mg HS [facility] Administration Intake and Output 02/11/20 02/12/20 02/12/20 22:59 06:59 14:59 Intake Total 64.167 92.557 Balance 64.167 92.557 Intake: Intake, IV Titration 64.167 92.557 Amount Heparin Sod,Pork in 0.45% 64.167 92.557 NaCl 25,000 unit In 0.45 % NaCl 1 250ml.bag @ 10. 86 UNITS/KG/HR 10 mls/hr IV .Q24H [facility] Rx#: [id number] Other: Voiding Method Toilet Toilet Toilet # Voids 1 2 02/11/20 10:38 02/11/20 10:38
--- NOTE | 2020-02-12 11:07 | P.HPIM ---
History of Present Illness H&P Date: 02/11/20 Chief Complaint: Chest Pain Patient is a 64-year-old male with a known history of chest pain/angina and is on follow-up with cardiology no previous history of PCI, GERD, hearing disorder/deafness, hypertension, hyperlipidemia and previous history of smoking came to ER with complaints of left-sided chest pain. Patient states that he did work in the garden by raking leaves all day yesterday. Patient has been having left-sided chest pain worsens with movement and is not improving which made him to come to ER. Denied any associated shortness of breath. No nausea vomiting or abdominal pain or diarrhea. No fever no chills. No cough or sputum production. No complaints of back pain. Denied any focal weakness. No dizziness or lightheadedness. Chest x-ray showed no acute cardiopulmonary process. EKG showed normal sinus rhythm Rib x-ray showed no acute displaced rib fracture is evident bilaterally. Overlying soft tissues are unremarkable. Lab data reviewed. Troponin x3 - Past Medical History Past Medical History: Chest Pain / Angina, COPD, GERD/Reflux, Hearing Disorder / Deafness, Hyperlipidemia, Hypertension Additional Past Medical History / Comment(s): , LT EAR DEAF-READS LIPS, CARPAL TUNNEL. History of Any Multi-Drug Resistant Organisms: None Reported Past Surgical History: No Surgical Hx Reported Additional Past Surgical History / Comment(s): rt carpal tunnel sx, upper scope Past Anesthesia/Blood Transfusion Reactions: No Reported Reaction Past Psychological History: No Psychological Hx Reported Additional Psychological History / Comment(s): pt lives alone cares for self. 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 Smoking Status: Former smoker Past Alcohol Use History: Rare Additional Past Alcohol Use History / Comment(s): started smoking at age 10- smoked 1ppd quit 2008, used to drink occ but none since 1994 Past Drug Use History: None Reported - Past Family History Sister(s) Family Medical History: Cancer Father Family Medical History: Myocardial Infarction ([place]) Mother Family Medical History: Cancer, Hypertension, Liver Disease Additional Family Medical History / Comment(s): tb in 1967, breast cancer Medications and Allergies Home Medications Medication Instructions Recorded Confirmed Type Tamsulosin HCl [Flomax] 0.4 mg PO HS 08/14/14 02/11/20 History Albuterol Nebulized [Ventolin 2.5 mg INHALATION RT-Q4H PRN 06/29/18 02/11/20 History Nebulized] Aspirin EC [Ecotrin Low Dose] 81 mg PO DAILY 06/29/18 02/11/20 History Atorvastatin Calcium [Lipitor] 80 mg PO HS 06/29/18 02/11/20 History Cetirizine HCl [Zyrtec] 10 mg PO DAILY 06/29/18 02/11/20 History Finasteride [Proscar] 5 mg PO DAILY 06/29/18 02/11/20 History Isosorbide Mononitrate ER [Imdur] 30 mg PO DAILY 06/29/18 02/11/20 History Nitroglycerin Sl Tabs [Nitrostat] 0.4 mg SUBLINGUAL Q5M PRN 06/29/18 02/11/20 History Omeprazole 40 mg PO BID 06/29/18 02/11/20 History Sertraline HCl [Zoloft] 50 mg PO DAILY 06/29/18 02/11/20 History carvediloL [Coreg] 3.125 mg PO BID 06/29/18 02/11/20 History Cholecalciferol [Vitamin D3 (25 2,000 unit PO DAILY 09/13/18 02/11/20 History Mcg = 1000 Iu)] Ascorbic Acid [Vitamin C] 250 mg PO DAILY 02/11/20 02/11/20 History Budesonide [Pulmicort] 0.5 mg INHALATION RT-BID 02/11/20 02/11/20 History Ferrous Sulfate [Feosol] 325 mg PO DAILY 02/11/20 02/11/20 History Meloxicam [Mobic] 15 mg PO DAILY 02/11/20 02/11/20 History Montelukast [Singulair] 10 mg PO DAILY 02/11/20 02/11/20 History Pramipexole [Mirapex] 0.25 mg PO BID@1600,2100 02/11/20 02/11/20 History Allergies Allergy/AdvReac Type Severity Reaction Status Date / Time No Known Allergies Allergy Verified 02/11/20 11:15 Physical Exam Vitals: Vital Signs Temp Pulse Pulse Resp BP BP Pulse Ox 02/11/20 20:32 68 18 02/11/20 20:30 97.6 F 68 18 113/69 97 02/11/20 20:22 74 11/01/20 20:12 74 02/11/20 17:08 68 02/11/20 16:58 68 02/11/20 15:35 78 16 122/79 98 02/11/20 13:23 98 02/11/20 12:42 97.8 F 77 16 145/70 99 02/11/20 12:35 98.3 F 68 18 107/64 98 02/11/20 11:34 78 18 118/75 99 02/11/20 10:12 98.4 F 92 18 134/81 98 Intake and Output 02/11/20 02/11/20 02/11/20 06:59 14:59 22:59 Intake Total 64.167 Balance 64.167 Intake: Intake, IV Titration 64.167 Amount Heparin Sod,Pork in 0.45% 64.167 NaCl 25,000 unit In 0.45 % NaCl 1 250ml.bag @ 10. 86 UNITS/KG/HR 10 mls/hr IV .Q24H [facility] Rx#: [id number] Other: Voiding Method Toilet Toilet # Voids 1 1 Weight 92.079 kg Results CBC & Chem 7: 02/11/20 10:38 02/11/20 10:38 Labs: Abnormal Lab Results - Last 24 Hours (Table) 02/11/20 02/11/20 02/11/20 Range/Units 10:38 10:38 17:35 APTT 21.5 L 42.9 H (22.0-30.0) sec Chloride 108 H (98-107) mmol/L Glucose 125 H (74-99) mg/dL Thrombosis Risk Factor Assmnt - DVT/VTE Prophylaxis DVT/VTE Prophylaxis: Pharmacologic Prophylaxis ordered - Choose All That Apply Any of the Below Risk Factors Present?: No Other Risk Factors: Yes Each Risk Factor Represents 2 Points: Age 61-74 years Thrombosis Risk Factor Assessment Total Risk Factor Score: 2 Thrombosis Risk Factor Assessment Level: Low Risk Assessment and Plan Assessment: Atypical chest pain most likely musculoskeletal History of chest pain and angina. follows with cardiology as outpatient. no hx of PCI Hypertension Hyperlipidemia Hearing disorder/deafness GERD COPD not in exacerbation Previous history of smoking DVT prophylaxis Plan: Patient will be continued on IV hydration and pain management with Toradol. Continue with home blood pressure medications. Breathing treatments as needed. Incentive spirometry and follow-up closely. Cardiology was consulted for evaluation of chest pain. Further recommendations based on clinical course.
== END 2020-02-12 14:35 | disposition home or self-care (01) ==
LOC: EC 10:08 → 3NCARDOBS 11:51
PROVIDERS: ADMIT Internal Medicine; ATTEND Internal Medicine
DX: R07.89 Other chest pain (principal); I10 Essential (primary) hypertension; E78.5 Hyperlipidemia, unspecified; J44.9 Chronic obstructive pulmonary disease, unspecified; Z87.891 Personal history of nicotine dependence; K21.9 Gastro-esophageal reflux disease without esophagitis; H91.92 Unspecified hearing loss, left ear; Z98.890 Other specified postprocedural states; E78.00 Pure hypercholesterolemia, unspecified; Z79.82 Long term (current) use of aspirin; Z79.899 Other long term (current) drug therapy; Z79.1 Long term (current) use of non-steroidal anti-inflammatories (NSAID); Z80.3 Family history of malignant neoplasm of breast; Z82.49 Family history of ischemic heart disease and other diseases of the circulatory system
CPT/HCPCS: 93005 ×2; 96366 ×2; 96375; 96376 ×3; 96365; 99291; 36415; 94640 ×2; 80061; 80053; 83735; 84484; 85025; 85610; 85730 ×2; 71110; 71046; G0378 ×2; S0138; J1644 ×3; J2270; J1885 ×2

== ENCOUNTER 2020-04-11 10:23 | Observation (INO) | payer OTHER ==
[2020-04-11] MEDS ORDERED: ASPIRIN 81 MG PO STA (10:40)
[2020-04-11] MEDS ORDERED: MORPHINE SULFATE 2 MG/ML SYRINGE IVP STA (10:40)
[2020-04-11] MEDS ORDERED: SODIUM CHLORIDE 0.9% 500 ML 500 ML IV STA (10:40)
[2020-04-11] MEDS ORDERED: ONDANSETRON 4 MG/2 ML VIAL IVP STA (10:41)
[2020-04-11 10:49] LABS: Basophils # (A) 0.1 k/uL (0-0.2); Basophils % (A) 1 %; Eosinophils # (A) 0.2 k/uL (0-0.7); Eosinophils % (A) 2 %; HCT 43.2 % (39.0-53.0); HGB 14.6 gm/dL (13.0-17.5); Lymphocytes # (A) 1.6 k/uL (1.0-4.8); Lymphocytes % (A) 20 %; MCH 30.1 pg (25.0-35.0); MCHC 33.9 g/dL (31.0-37.0); MCV 88.9 fL (80.0-100.0); Mean Platelet Volume 7.6; Monocytes # (A) 0.4 k/uL (0-1.0); Monocytes % (A) 5 %; Neutrophils # (A) 5.5 k/uL (1.3-7.7); Neutrophils % (A) 70 %; Platelet Count 257 k/uL (150-450); RBC 4.86 m/uL (4.30-5.90); RDW 13.4 % (11.5-15.5); WBC 7.9 k/uL (3.8-10.6)
--- NOTE | 2020-04-11 10:53 | ED ---
General Adult HPI - General Chief complaint: Syncope Stated complaint: Chest Pain Time Seen by Provider: 04/11/20 10:30 Source: patient, RN notes reviewed Mode of arrival: ambulatory Limitations: no limitations - History of Present Illness Initial comments: This a 64-year-old male presents emergency Department with chief complaint of chest pain. Patient states he awoke with chest pain around 4 AM. Patient states it's centralized pain to left side. Patient states that he's had chest pain in the past and states he has nitro at home. He took a nitro states that he became very dizzy, her vision and passed out. He is unsure how long he passed out. Patient had a mild headache which has now resolved. Patient denies any focal weakness, blurred vision currently. Patient also states he feels for breath but states he has COPD. Patient has not action depending. Patient denies any leg pain, leg swelling no history of PE or DVT. No history of c ongestive heart failure. - Related Data Home Medications Medication Instructions Recorded Confirmed Tamsulosin HCl [Flomax] 0.4 mg PO HS 08/14/14 04/11/20 Albuterol Nebulized [Ventolin 2.5 mg INHALATION RT-Q4H PRN 06/29/18 04/11/20 Nebulized] Aspirin EC [Ecotrin Low Dose] 81 mg PO DAILY 06/29/18 04/11/20 Atorvastatin Calcium [Lipitor] 80 mg PO HS 06/29/18 04/11/20 Cetirizine HCl [Zyrtec] 10 mg PO DAILY 06/29/18 04/11/20 Finasteride [Proscar] 5 mg PO DAILY 06/29/18 04/11/20 Isosorbide Mononitrate ER [Imdur] 30 mg PO DAILY 06/29/18 04/11/20 Nitroglycerin Sl Tabs [Nitrostat] 0.4 mg SUBLINGUAL Q5M PRN 06/29/18 04/11/20 Omeprazole 40 mg PO BID 06/29/18 04/11/20 Sertraline HCl [Zoloft] 50 mg PO DAILY 06/29/18 04/11/20 carvediloL [Coreg] 3.125 mg PO BID 06/29/18 04/11/20 Cholecalciferol [Vitamin D3 (25 2,000 unit PO DAILY 09/13/18 04/11/20 Mcg = 1000 Iu)] Ascorbic Acid [Vitamin C] 250 mg PO DAILY 02/11/20 04/11/20 Budesonide [Pulmicort] 0.5 mg INHALATION RT-BID 02/11/20 04/11/20 Ferrous Sulfate [Iron (65 MG 325 mg PO DAILY 02/11/20 04/11/20 Elemental)] Meloxicam [Mobic] 15 mg PO DAILY 02/11/20 04/11/20 Montelukast [Singulair] 10 mg PO DAILY 02/11/20 04/11/20 Pramipexole [Mirapex] 0.25 mg PO BID@1600,2100 02/11/20 04/11/20 Cyanocobalamin (Vitamin B-12) 1,000 mcg PO DAILY 04/11/20 04/11/20 [Vitamin B-12] Allergies Allergy/AdvReac Type Severity Reaction Status Date / Time No Known Allergies Allergy Verified 04/11/20 13:04 Review of Systems ROS Statement: Those systems with pertinent positive or pertinent negative responses have been documented in the HPI. ROS Other: All systems not noted in ROS Statement are negative. Past Medical History Past Medical History: Chest Pain / Angina, COPD, GERD/Reflux, Hearing Disorder / Deafness, Hyperlipidemia, Hypertension Additional Past Medical History / Comment(s): , LT EAR DEAF-READS LIPS, CARPAL TUNNEL. History of Any Multi-Drug Resistant Organisms: None Reported Past Surgical History: No Surgical Hx Reported Additional Past Surgical History / Comment(s): rt carpal tunnel sx, upper scope Past Anesthesia/Blood Transfusion Reactions: No Reported Reaction Past Psychological History: No Psychological Hx Reported Smoking Status: Former smoker Past Alcohol Use History: Rare Past Drug Use History: None Reported - Past Family History Sister(s) Family Medical History: Cancer Father Family Medical History: Myocardial Infarction ([place]) Mother Family Medical History: Cancer, Hypertension, Liver Disease Additional Family Medical History / Comment(s): tb in 1968, breast cancer General Exam Limitations: no limitations General appearance: alert, in no apparent distress Head exam: Present: atraumatic, normocephalic, normal inspection Eye exam: Present: normal appearance, PERRL, EOMI. Absent: scleral icterus, conjunctival injection, periorbital swelling ENT exam: Present: normal exam, normal oropharynx, mucous membranes moist Neck exam: Present: normal inspection, full ROM. Absent: tenderness, meningismus, lymphadenopathy Respiratory exam: Present: normal lung sounds bilaterally, chest wall tenderness. Absent: respiratory distress, wheezes, rales, rhonchi, stridor Cardiovascular Exam: Present: regular rate, normal rhythm, normal heart sounds. Absent: systolic murmur, diastolic murmur, rubs, gallop, clicks GI/Abdominal exam: Present: soft, normal bowel sounds. Absent: distended, tende rness, guarding, rebound, rigid Neurological exam: Present: alert, oriented X3 Skin exam: Present: warm, dry, intact, normal color. Absent: rash Course Vital Signs 04/11/20 04/11/20 04/11/20 10:27 10:41 11:00 Temperature 97.9 F Pulse Rate 105 H 97 98 Respiratory 18 18 18 Rate Blood Pressure 147/73 114/88 118/89 O2 Sat by Pulse 97 98 97 Oximetry 04/11/20 11:30 Temperature Pulse Rate 84 Respiratory 10 L Rate Blood Pressure 128/81 O2 Sat by Pulse 96 Oximetry EKG Findings - EKG Comments: EKG Findings:: EKG performed at 10:35 sinus tachycardia with rate of 101 MO 160 QRS 80 QT/QTC 342/443 Medical Decision Making - Medical Decision Making 64-year-old male presented from for chest pain, syncopal episode. Patient admitted for cardiac rule out patient does have underlying cardiac disease including may be related to nitro. 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 - Lab Data Result diagrams: 04/11/20 10:42 04/11/20 10:42 Lab Results 04/11/20 04/11/20 04/11/20 Range/Units 10:42 10:42 10:42 WBC 7.9 (3.8-10.6) k/uL RBC 4.86 (4.30-5.90) m/uL Hgb 14.6 (13.0-17.5) gm/dL Hct 43.2 (39.0-53.0) % MCV 88.9 (80.0-100.0) fL MCH 30.1 (25.0-35.0) pg MCHC 33.9 (31.0-37.0) g/dL RDW 13.4 (11.5-15.5) % Plt Count 257 (150-450) k/uL MPV 7.6 Neutrophils % 70 % Lymphocytes % 20 % Monocytes % 5 % Eosinophils % 2 % Basophils % 1 % Neutrophils # 5.5 (1.3-7.7) k/uL Lymphocytes # 1.6 (1.0-4.8) k/uL Monocytes # 0.4 (0-1.0) k/uL Eosinophils # 0.2 (0-0.7) k/uL Basophils # 0.1 (0-0.2) k/uL PT 9.7 (9.0-12.0) sec INR 0.9 (<1.2) APTT 20.3 L (22.0-30.0) sec D-Dimer 0.85 H (<0.60) mg/L FEU Sodium 139 (137-145) mmol/L Potassium 4.1 (3.5-5.1) mmol/L Chloride 106 (98-107) mmol/L Carbon Dioxide 25 (22-30) mmol/L Anion Gap 8 mmol/L BUN 24 H (9-20) mg/dL Creatinine 0.80 (0.66-1.25) mg/dL Est GFR (CKD-EPI)AfAm >90 (>60 ml/min/1.73 sqM) Est GFR (CKD-EPI)NonAf >90 (>60 ml/min/1.73 sqM) Glucose 118 H (74-99) mg/dL Calcium 9.3 (8.4-10.2) mg/dL Magnesium 1.5 L (1.6-2.3) mg/dL Total Bilirubin 0.7 (0.2-1.3) mg/dL AST 28 (17-59) U/L ALT 37 (4-49) U/L Alkaline Phosphatase 72 (38-126) U/L Troponin I (0.000-0.034) ng/mL NT-Pro-B Natriuret Pep pg/mL Total Protein 7.5 (6.3-8.2) g/dL Albumin 4.4 (3.5-5.0) g/dL Lipase 52 (23-300) U/L 04/11/20 04/11/20 Range/Units 10:42 10:42 WBC (3.8-10.6) k/uL RBC (4.30-5.90) m/uL Hgb (13.0-17.5) gm/dL Hct (39.0-53.0) % MCV (80.0-100.0) fL MCH (25.0-35.0) pg MCHC (31.0-37.0) g/dL RDW (11.5-15.5) % Plt Count (150-450) k/uL MPV Neutrophils % % Lymphocytes % % Monocytes % % Eosinophils % % Basophils % % Neutrophils # (1.3-7.7) k/uL Lymphocytes # (1.0-4.8) k/uL Monocytes # (0-1.0) k/uL Eosinophils # (0-0.7) k/uL Basophils # (0-0.2) k/uL PT (9.0-12.0) sec INR (<1.2) APTT (22.0-30.0) sec D-Dimer (<0.60) mg/L FEU Sodium (137-145) mmol/L Potassium (3.5-5.1) mmol/L Chloride (98-107) mmol/L Carbon Dioxide (22-30) mmol/L Anion Gap mmol/L BUN (9-20) mg/dL Creatinine (0.66-1.25) mg/dL Est GFR (CKD-EPI)AfAm (>60 ml/min/1.73 sqM) Est GFR (CKD-EPI)NonAf (>60 ml/min/1.73 sqM) Glucose (74-99) mg/dL Calcium (8.4-10.2) mg/dL Magnesium (1.6-2.3) mg/dL Total Bilirubin (0.2-1.3) mg/dL AST (17-59) U/L ALT (4-49) U/L Alkaline Phosphatase (38-126) U/L Troponin I <0.012 (0.000-0.034) ng/mL NT-Pro-B Natriuret Pep 23 pg/mL Total Protein (6.3-8.2) g/dL Albumin (3.5-5.0) g/dL Lipase (23-300) U/L Disposition Clinical Impression: Chest pain, Syncope Disposition: ADMITTED IP TO THIS HOSP Condition: Fair
[2020-04-11 11:04] LABS: ALT 37 U/L (4-49); AST 28 U/L (17-59); African American GFR (CKD) >90 (>60 ml/min/1.73 sqM); Albumin 4.4 g/dL (3.5-5.0); Alkaline Phosphatase 72 U/L (38-126); Anion Gap 8 mmol/L; Blood Urea Nitrogen 24 mg/dL (9-20); Calcium 9.3 mg/dL (8.4-10.2); Carbon Dioxide 25 mmol/L (22-30); Chloride 106 mmol/L (98-107); Glucose 118 mg/dL (74-99); Lipase 52 U/L (23-300); Magnesium 1.5 mg/dL (1.6-2.3); Non-African American GFR(CKD) >90 (>60 ml/min/1.73 sqM); Potassium 4.1 mmol/L (3.5-5.1); Sodium 139 mmol/L (137-145); Total Bilirubin 0.7 mg/dL (0.2-1.3); Total Protein 7.5 g/dL (6.3-8.2)
--- NOTE | 2020-04-11 11:14 | XR ---
EXAMINATION TYPE: XR chest 2V DATE OF EXAM: 04/11/2020 COMPARISON: 02/11/2020 HISTORY: 64-year-old male with chest pain TECHNIQUE: AP and lateral views FINDINGS: Heart normal size. Aorta and pulmonary vasculature within normal limits. No consolidation or pleural effusion. Increased retrosternal clear space on the lateral view. IMPRESSION: Possible underlying emphysema. No acute cardiopulmonary process.
[2020-04-11 11:17] LABS: INR 0.9 (<1.2); Prothrombin Time 9.7 sec (9.0-12.0)
[2020-04-11] MEDS ORDERED: MAGNESIUM OXIDE 400 MG TAB PO STA (11:20)
[2020-04-11] MEDS ORDERED: HEPARIN SODIUM,PORCINE 5,000 UNIT/ML 1 ML VIAL IV PRN (11:25)
[2020-04-11] MEDS ORDERED: HEPARIN SODIUM,PORCINE 5,000 UNIT/ML 1 ML VIAL IV ONE (11:25)
[2020-04-11] MEDS ORDERED: HEPARIN SOD,PORK IN 0.45% NACL 25,000 UNIT in 0.45% NACL 1 250ML.BAG IV SCH (11:30)
[2020-04-11 11:36] LABS: D-Dimer 0.85 mg/L FEU (<0.60)
[2020-04-11 11:37] LABS: Partial Thromboplastin Time 20.3 sec (22.0-30.0)
--- NOTE | 2020-04-11 12:30 | CT ---
EXAMINATION TYPE: CT chest angio for PE DATE OF EXAM: 04/11/2020 COMPARISON: Radiograph same day HISTORY: 64-year-old male Chest Pain TECHNIQUE: Contiguous axial scanning of the chest performed with IV Contrast, patient injected with 9 0 mL of Isovue 370. Coronal/sagittal MIP reconstructions performed. CT DLP: 370.7 mGycm Automated exposure control for dose reduction was used. FINDINGS: Heart is normal size without pericardial effusion. No flattening of the interventricular septum or re flux of contrast into the hepatic veins. Upper descending thoracic aorta borderline ectatic at 3.0 cm. There is variant direct takeoff of the left vertebral artery directly from the aortic arch. Satisfactory opacification the pulmonary arterial system. Enlarged caliber to the main right and left pulmonary arteries are 2.7 and 2.8 cm, respectively there is satisfactory opacification of the pulmo nary arterial system. There is no evidence for pulmonary embolus. Some borderline sized right hilar lymph nodes measuring up to 9 mm and 1 cm at the left hilum, probab ly reactive. 6 month follow-up could reassess. There is moderate to advanced centrilobular emphysema. Mild diffuse bronchial wall thickening. Biapic al pleural parenchymal scarring. No consolidation or pleural effusion. Visualized upper abdomen shows hepatic steatosis. Bones: Mild endplate spondylosis lower thoracic spine. No osseous destructive process. IMPRESSION: 1. NO EVIDENCE FOR PULMONARY EMBOLUS. 2. COPD WITH MODERATE TO ADVANCED EMPHYSEMA AND PULMONARY ARTERIAL HYPERTENSION. 3. BORDERLINE SIZED RIGHT HILAR AND MILDLY ENLARGED LEFT HILAR LYMPH NODES MEASURING UP TO 1 CM. THES E MAY BE REACTIVE/POST INFLAMMATORY. SIX-MONTH FOLLOW-UP CT TO REASSESS. 4. HEPATIC STEATOSIS.
[2020-04-11] MEDS ORDERED: NITROGLYCERIN SL TABS 0.4 MG TAB SUBLINGUAL PRN (13:19)
--- NOTE | 2020-04-11 13:40 | P.CRDCN ---
History of Present Illness Consult date: 04/11/20 History of present illness: CHIEF COMPLAINT: Chest pain HISTORY OF PRESENT ILLNESS: This is a 64-year-old male with a past medical history significant for chronic angina, hypertension, hyperlipidemia, GERD, COPD, and former nicotine dependence. Patient follows with a health care social worker in [place] but is unable to recall her name. We have been asked to see the patient in consultation for chest pain. Patient states he woke up at 4 AM with chest pain. Patient states the pain was in the middle of his chest. He reports some mild pain in his left arm during this time. He reports shortness of breath but states he has a history of COPD and he is normally short of breath at baseline. He denies any nausea or vomiting. He states he walked into the kitchen to get some nitro. Shortly after taking the nitro he began feeling lightheaded and dizzy. Patient states he then passed out. There was no one home with the patient at the time. When the patient awoke, he called his primary care physician who advised him to come to the emergency room. Patient had a stress test completed in 2014 which was negative for reversible ischemia. Echocardiogram at that time revealed ejection fraction 55-60%. Patient reports having a history of cardiac catheterization many years ago but did not require any stent placement. DIAGNOSTICS: EKG reveals sinus mechanism. Heart rate 101 Chest xray possible underlying emphysema. No acute process. Laboratory data: W BC 7.9. Hemoglobin 14.6. Platelet count 257. D-dimer 0.85. Sodium 139. Potassium 4.1. BUN 24. Creatinine 0.80. Magnesium 1.5. Troponin negative 1. Current home cardiac medications include Coreg 3.125 mg twice a day, Imdur 30 mg daily, Lipitor 80 mg daily, aspirin 81 mg daily CTA: Negative for PE REVIEW OF SYSTEMS: At the time of my exam: CONSTITUTIONAL: Denies fever or chills. HEENT: Denies blurred vision, vision changes, or eye pain. Denies hemoptysis CARDIOVASCULAR: Denies chest pain, orthopnea, PND or palpitations RESPIRATORY: No shortness of breath. GASTROINTESTINAL: Denies abdominal pain. Denies nausea or vomiting. HEMATOLOGIC: Denies bleeding disorders. GENITOURINARY: Denies any blood in urine. SKIN: Denies pruitis. Denies rash. PHYSICAL EXAM: VITAL SIGNS: Reviewed. GENERAL: Well-developed in no acute distress. HEENT: Head is normocephalic. Pupils are equal, round. Sclerae anicteric. Mucous membranes of the mouth are moist. Neck supple. No JVD or thyromegaly LUNGS: Respirations even and unlabored. Lungs diminished. HEART: Regular rate and rhythm. S1 and S2 heard. ABDOMEN: Soft. Nondistended. Nontender. EXTREMITIES: Normal range of motion. No clubbing or cyanosis. Peripheral pulses intact. No lower extremity edema NEUROLOGIC: Awake and alert. Oriented x 3. ASSESSMENT: Chest pain Syncope History of chronic angina Hypertension Hyperlipidemia COPD GERD Former nicotine dependence PLAN: Decrease aspirin to 81 mg Continue IV heparin. If second troponin is negative, may discontinue IV heparin and transition patient to subcu heparin Resume home cardiac medications Obtain orthostatic blood pressures Obtain 2-D echo to assess cardiac structure and function Further recommendations pending patient's course Nurse practitioner note has been reviewed by physician. Signing provider agrees with the documented findings, assessment, and plan of care. Past Medical History Past Medical History: Chest Pain / Angina, COPD, GERD/Reflux, Hearing Disorder / Deafness, Hyperlipidemia, Hypertension Additional Past Medical History / Comment(s): , LT EAR DEAF-READS LIPS, CARPAL TUNNEL. History of Any Multi-Drug Resistant Organisms: None Reported Past Surgical History: No Surgical Hx Reported Additional Past Surgical History / Comment(s): rt carpal tunnel sx, upper scope Past Anesthesia/Blood Transfusion Reactions: No Reported Reaction Past Psychological History: No Psychological Hx Reported Smoking Status: Former smoker Past Alcohol Use History: Rare Past Drug Use History: None Reported - Past Family History Sister(s) Family Medical History: Cancer Father Family Medical History: Myocardial Infarction ([place]) Mother Family Medical History: Cancer, Hypertension, Liver Disease Additional Family Medical History / Comment(s): tb in 1967, breast cancer Medications and Allergies Home Medications Medication Instructions Recorded Confirmed Type Tamsulosin HCl [Flomax] 0.4 mg PO HS 08/14/14 04/11/20 History Albuterol Nebulized [Ventolin 2.5 mg INHALATION RT-Q4H PRN 06/29/18 04/11/20 History Nebulized] Aspirin EC [Ecotrin Low Dose] 81 mg PO DAILY 06/29/18 04/11/20 History Atorvastatin Calcium [Lipitor] 80 mg PO HS 06/29/18 04/11/20 History Cetirizine HCl [Zyrtec] 10 mg PO DAILY 06/29/18 04/11/20 History Finasteride [Proscar] 5 mg PO DAILY 06/29/18 04/11/20 History Isosorbide Mononitrate ER [Imdur] 30 mg PO DAILY 06/29/18 04/11/20 History Nitroglycerin Sl Tabs [Nitrostat] 0.4 mg SUBLINGUAL Q5M PRN 06/29/18 04/11/20 History Omeprazole 40 mg PO BID 06/29/18 04/11/20 History Sertraline HCl [Zoloft] 50 mg PO DAILY 06/29/18 04/11/20 History carvediloL [Coreg] 3.125 mg PO BID 06/29/18 04/11/20 History Cholecalciferol [Vitamin D3 (25 2,000 unit PO DAILY 09/13/18 04/11/20 History Mcg = 1000 Iu)] Ascorbic Acid [Vitamin C] 250 mg PO DAILY 02/11/20 04/11/20 History Budesonide [Pulmicort] 0.5 mg INHALATION RT-BID 02/11/20 04/11/20 History Ferrous Sulfate [Iron (65 MG 325 mg PO DAILY 02/11/20 04/11/20 History Elemental)] Meloxicam [Mobic] 15 mg PO DAILY 02/11/20 04/11/20 History Montelukast [Singulair] 10 mg PO DAILY 02/11/20 04/11/20 History Pramipexole [Mirapex] 0.25 mg PO BID@1600,2100 02/11/20 04/11/20 History Cyanocobalamin (Vitamin B-12) 1,000 mcg PO DAILY 04/11/20 04/11/20 History [Vitamin B-12] Allergies Allergy/AdvReac Type Severity Reaction Status Date / Time No Known Allergies Allergy Verified 04/11/20 13:04 Physical Exam Vitals: Vital Signs Temp Pulse Resp BP Pulse Ox 04/11/20 11:30 84 10 L 128/81 96 04/11/20 11:00 98 18 118/89 97 04/11/20 10:41 97 18 114/88 98 04/11/20 10:27 97.9 F 105 H 18 147/73 97 Intake and Output 04/10/20 04/11/20 04/11/20 22:59 06:59 14:59 Other: Weight 92.533 kg Results 04/11/20 10:42 04/11/20 10:42 Cardiac Enzymes 04/11/20 04/11/20 Range/Units 10:42 10:42 AST 28 (17-59) U/L Troponin I <0.012 (0.000-0.034) ng/mL Coagulation 04/11/20 Range/Units 10:42 PT 9.7 (9.0-12.0) sec APTT 20.3 L (22.0-30.0) sec CBC 04/11/20 Range/Units 10:42 WBC 7.9 (3.8-10.6) k/uL RBC 4.86 (4.30-5.90) m/uL Hgb 14.6 (13.0-17.5) gm/dL Hct 43.2 (39.0-53.0) % Plt Count 257 (150-450) k/uL Comprehensive Metabolic Panel 04/11/20 Range/Units 10:42 Sodium 139 (137-145) mmol/L Potassium 4.1 (3.5-5.1) mmol/L Chloride 106 (98-107) mmol/L Carbon Dioxide 25 (22-30) mmol/L BUN 24 H (9-20) mg/dL Creatinine 0.80 (0.66-1.25) mg/dL Glucose 118 H (74-99) mg/dL Calcium 9.3 (8.4-10.2) mg/dL AST 28 (17-59) U/L ALT 37 (4-49) U/L Alkaline Phosphatase 72 (38-126) U/L Total Protein 7.5 (6.3-8.2) g/dL Albumin 4.4 (3.5-5.0) g/dL Current Medications Generic Name Dose Route Start Last Admin Trade Name Freq PRN Reason Stop Dose Admin Aspirin 325 mg 04/12/20 09:00 Aspirin 325 Mg Tab PO DAILY DIONNA Heparin Sodium (Porcine) 0 unit 04/11/20 11:25 Heparin Sodium,Porcine 5,000 Unit/Ml 1 Ml Vial IV Q6HR PRN Low PTT Protocol Heparin Sodium/Sodium Chloride 250 mls @ 10 mls/hr 04/11/20 11:30 04/11/20 11:43 25,000 unit/ Sodium Chloride IV 10.807 units/kg/hr .Q24H DIONNA 10 mls/hr Administration Protocol 10.807 UNITS/KG/HR Intake and Output 04/10/20 04/11/20 04/11/20 22:59 06:59 14:59 Other: Weight 92.533 kg Patient Weight 04/12/20 06:59 Weight 92.533 kg 04/11/20 10:42 04/11/20 10:42
[2020-04-11] MEDS: carvediloL 3.125 MG TAB PO SCH (17:51)
--- NOTE | 2020-04-11 18:56 | HP ---
HISTORY AND PHYSICAL DATE OF SERVICE: 04/11/2020 CHIEF COMPLAINT: Chest pain. HISTORY OF PRESENT ILLNESS: This 64-year-old gentleman with a past medical history of multiple medical issues, including COPD, history of chest pain, angina, history of GERD, history of hypertension, hyperlipidemia, being followed by Dr. Harkins in the outpatient setting, apparently had chest pain about 4 a.m. The patient felt the chest pain across the anterior part of the chest and also on the left side of the chest which was heavy in character. There was no history of any radiation of pain or associated nausea, vomiting, diaphoresis. The patient took a nitroglycerin tablet and after a few minutes the patient apparently passed out, followed by some blurring of vision and diplopia. The patient came to [facility] and was admitted for evaluation and treatment. Initial troponins are negative. The initial EKG, which was reviewed personally by me, showed some diffuse ST-T changes, and some PACs were also noted. There is no history of any fever, rigor or chills. No history of headache, seizures at this time. PAST MEDICAL HISTORY: History of COPD, history of chest pain, angina, hypertension, hyperlipidemia. MEDICATIONS: Medications prior to admission include Flomax, Mirapex, Nitrostat, vitamin Coreg. Zoloft, omeprazole, Singulair, Mobic, Imdur, Proscar, iron, vitamin D3, Zyrtec, Pulmicort, Lipitor, Ecotrin, vitamin C, Ventolin. ALLERGIES: NONE. FAMILY HISTORY: History of myocardial infarction in the family. SOCIAL HISTORY: Previous history of smoking. No current smoking or alcohol intake. REVIEW OF SYSTEMS: ENT: No diminished hearing. No diminished vision. CARDIOVASCULAR SYSTEM: As mentioned earlier. RESPIRATORY SYSTEM: No cough, hemoptysis. GI: No nausea, vomiting. : No dysuria or retention. NERVOUS SYSTEM: As mentioned earlier. ALLERGY/IMMUNOLOGY: No asthma, hayfever. MUSCULOSKELETAL: As mentioned earlier. HEMATOLOGY/ONCOLOGY: No history of anemia. ENDOCRINE: No history of diabetes, hypothyroidism. CONSTITUTIONAL: As mentioned earlier. DERMATOLOGY: Negative. RHEUMATOLOGY: Negative. PSYCHIATRY: As mentioned earlier. PHYSICAL EXAMINATION: Patient alert and oriented x3. Pulse 68, blood pressure 113/60, respiration 18, temperature normal, pulse ox normal. HEENT: Conjunctivae normal. NECK: No jugular venous distention. CARDIOVASCULAR SYSTEM: S1, S2 muffled. RESPIRATORY SYSTEM: Breath sounds diminished at the bases. No rhonchi. No crackles. ABDOMEN: Soft, non-tender. No mass palpable. LEGS: No edema. No swelling. NERVOUS SYSTEM: Higher functions as mentioned earlier. Moves all 4 limbs. No focal motor or sensory deficit. LYMPHATICS: No lymph node palpable in neck, axillae or groin. SKIN: No ulcer, rash, bleeding. JOINTS: No active deforming arthropathy. LABS: Labs at this time show CBC within normal limits and D-dimer is 0.85. Glucose is 118. Magnesium is 1.5. ASSESSMENT: 1. Chest pain, possible unstable angina. 2. Syncope, possibly vasovagal reaction to nitroglycerin. 3. Elevated D-dimer with no evidence of any any pulmonary embolism. 4. Possibly hilar and mediastinal lymphadenopathy, reactive. Needs six-month followup per CT scan report. 5. Hypomagnesemia. 6. History of chronic angina. 7. Chronic obstructive pulmonary disease. 8. Gastroesophageal reflux disease. 9. Hard of hearing and deafness. 10.Hypertension. 11.Hyperlipidemia. 12.History of carpal tunnel syndrome. 13.Obesity with body mass index of 31. 14.Remote history of nicotine dependence. RECOMMENDATIONS AND DISCUSSION: In this 64-year-old gentleman who presented with multiple complex medical issues, at this time I recommend to continue the current medications, continue symptomatic treatment. I recommend rule out myocardial infarction. Acute coronary protocol. Cardiology consultation. The patient might need further workup to rule out the possibility of coronary artery disease. Otherwise, I would also recommend close followup with the primary physician regarding a repeat CT scan regarding the lymph nodes visualized on the CT scan. Repeat CT scan of the chest was recommended in 6 months, which was explained to the patient. An outpatient followup with Pulmonary also will be arranged. Guarded prognosis. Further recommendations to follow. A copy of this dictation is being forwarded to Dr. Harkins, who is the primary physician. MMODL / IJN: [id number] / MTDD
--- NOTE | 2020-04-11 19:00 | ECHOF ---
Referral Reason:lv function MEASUREMENTS -------- HEIGHT: 172.7 cm WEIGHT: 92.5 kg BP: 128/81 IVSd: 1.3 cm (0.6 - 1.1) LVIDd: 3.1 cm (3.9 - 5.3) LVPWd: 1.3 cm (0.6 - 1.1) IVSs: 1.8 cm LVIDs: 2.1 cm LVPWs: 1.6 cm LA Diam: 3.5 cm (2.7 - 3.8) RVIDd: 3.0 cm (< 3.3) Ao Diam: 3.0 cm (2.0 - 3.7) AV Cusp: 1.3 cm (1.5 - 2.6) EPSS: 1.0 cm MV E Santi: 0.76 m/s MV DecT: 245 ms MV A Santi: 0.97 m/s MV E/A Ratio: 0.78 MV EF SLOPE: 20.16 mm/s (70 - 150) MV EXCURSION: 11.24 mm (> 18.000) FINDINGS -------- Sinus rhythm. This was a technically good study. The left ventricular size is normal. There is mild concentric left ventricular hypertrophy. Overa ll left ventricular systolic function is normal with, an EF between 60 - 65 %. The right ventricle is normal in size. The left atrial size is normal. The right atrium is normal in size. Interatrial and interventricular septum intact. There is mild aortic valve sclerosis. There is trace mitral regurgitation. The tricuspid valve appears structurally normal. Trace/mild (physiologic) pulmonic regurgitation. The aortic root size is normal. There is no pericardial effusion. CONCLUSIONS -------- 1. The left ventricular size is normal. 2. There is mild concentric left ventricular hypertrophy. 3. Overall left ventricular systolic function is normal with, an EF between 60 - 65 %. 4. There is mild aortic valve sclerosis. 5. There is trace mitral regurgitation. 6. Trace/mild (physiologic) pulmonic regurgitation. 7. There is no pericardial effusion. MENTAL HEALTH SPECIALIST: Hailee Coates [facility]
[2020-04-11] MEDS ORDERED: ATORVASTATIN 80 MG TAB PO SCH (21:00)
[2020-04-11] MEDS: HEPARIN SODIUM,PORCINE 5,000 UNIT/ML 1 ML VIAL SQ SCH (22:25)
[2020-04-12 03:30] LABS: Cholesterol 266 mg/dL (<200); HDL Cholesterol 47 mg/dL (40-60); LDL Cholesterol,Calculated 152 mg/dL (0-99); Triglycerides 333 mg/dL (<150)
[2020-04-12 05:36] VITALS: TEMP 97.7
[2020-04-12] MEDS: carvediloL 3.125 MG TAB PO SCH (06:49)
[2020-04-12 08:17] VITALS: BP 136/75; RESP 16
[2020-04-12] MEDS ORDERED: ALBUTEROL NEBULIZED 2.5 MG/3 ML INHALATION PRN (08:53)
[2020-04-12] MEDS ORDERED: ACETAMINOPHEN TAB 325 MG TAB PO PRN (08:56)
[2020-04-12] MEDS: HEPARIN SODIUM,PORCINE 5,000 UNIT/ML 1 ML VIAL SQ SCH (08:57)
[2020-04-12] MEDS ORDERED: ASCORBIC ACID 500 MG TAB PO SCH (09:00)
[2020-04-12] MEDS ORDERED: ISOSORBIDE MONONITRATE ER 30 MG TAB.ER.24H PO SCH (09:00)
[2020-04-12] MEDS ORDERED: ASPIRIN 325 MG TAB PO SCH (09:00)
[2020-04-12] MEDS ORDERED: SERTRALINE 50 MG TAB PO SCH (09:00)
[2020-04-12] MEDS ORDERED: CHOLECALCIFEROL 1,000 UNIT TAB PO SCH (09:00)
[2020-04-12] MEDS ORDERED: MELOXICAM 7.5 MG TAB PO SCH (09:00)
[2020-04-12] MEDS ORDERED: FERROUS SULFATE 325 MG TAB PO SCH (09:00)
[2020-04-12] MEDS ORDERED: MONTELUKAST 10 MG TAB PO SCH (09:00)
[2020-04-12] MEDS ORDERED: NICOTINE 14MG/24HR PATCH TRANSDERM SCH (09:00)
[2020-04-12] MEDS ORDERED: PANTOPRAZOLE 40 MG TABLET PO SCH (09:00)
[2020-04-12] MEDS ORDERED: CYANOCOBALAMIN 500 MCG TAB PO SCH (09:00)
[2020-04-12] MEDS ORDERED: ASPIRIN 81 MG PO SCH (09:00)
[2020-04-12] MEDS ORDERED: LORATADINE 10 MG TAB PO SCH (09:00)
[2020-04-12 09:44] LABS: African American GFR (CKD) >90 (>60 ml/min/1.73 sqM); Anion Gap 8 mmol/L; Blood Urea Nitrogen 20 mg/dL (9-20); Calcium 9.3 mg/dL (8.4-10.2); Carbon Dioxide 24 mmol/L (22-30); Chloride 107 mmol/L (98-107); Glucose 137 mg/dL (74-99); Magnesium 1.7 mg/dL (1.6-2.3); Non-African American GFR(CKD) >90 (>60 ml/min/1.73 sqM); Potassium 4.3 mmol/L (3.5-5.1); Sodium 139 mmol/L (137-145)
--- NOTE | 2020-04-12 10:12 | P.PN ---
Subjective Progress Note Date: 04/12/20 The patient states he did well overnight. He has not had any more episodes of chest discomfort. He does report some mild numbness in his right arm and tingling in his hand. He denies any chest pain or chest pressure. No palpitations, dizziness, or lightheadedness. The patient states he has been up walking around his room without issue. He is very concerned about his episode of syncope, which occurred after taking nitroglycerin. Echocardiogram performed yesterday shows normal LV function with mild LVH. No significant valvular abnormalities noted. GENERAL: Well-appearing, well-nourished and in no acute distress. NECK: Supple without JVD or thyromegaly. LUNGS: Breath sounds clear to auscultation bilaterally. Respiration equal and unlabored. No wheezes, rales or rhonchi. HEART: Regular rate and rhythm without murmurs, rubs or gallops. S1 and S2 heard. EXTREMITIES: Normal range of motion, no edema. No clubbing or cyanosis. Peripheral pulses intact and strong. VITALS: Vital signs show blood pressure 136/75, heart rate 83, SpO2 97% on room air. Afebrile. Orthostatic blood pressures negative. TELEMETRY: Sinus rhythm. No tachycardia or bradycardia arrhythmias. LABS: Sodium 139, potassium 4.3, BUN 20, creatinine 0.80, magnesium 1.7, troponins negative 3, triglycerides 333, LDL 152. IMPRESSION: #1 chest discomfort, ACS ruled out #2 syncope, likely hypotension due to nitroglycerin #3 history of angina #4 hypertension #5 hyperlipidemia #6 COPD #7 GERD PLAN: Continue current medication regimen. Recommend compliance with cholesterol medication, as LDL is 152 on current dose of Lipitor. 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 The patient has been seen and evaluated. Plan of care has been reviewed and agreed upon by Dr Hadley. Objective - Vital Signs Vital signs: Vital Signs Temp 97.7 F 04/12/20 03:00 Pulse 83 04/12/20 08:14 Resp 16 04/12/20 08:14 BP 136/75 04/12/20 08:14 Pulse Ox 97 04/12/20 08:14 Intake & Output 04/11/20 04/12/20 04/12/20 18:59 06:59 18:59 Intake Total 36 360 Balance 36 360 Weight 92.533 kg Intake: Intake, IV Titration 36 Amount Heparin Sod,Pork in 0.45% 36 NaCl 25,000 unit In 0.45 % NaCl 1 250ml.bag @ 10. 807 UNITS/KG/HR 10 mls/hr IV .Q24H [facility] Rx#: [id number] Oral 360 Other: Voiding Method Toilet # Voids 1 - Labs CBC & Chem 7: 04/11/20 10:42 04/12/20 09:19 Labs: Abnormal Lab Results - Last 24 Hours (Table) 04/11/20 04/11/20 04/11/20 Range/Units 10:42 10:42 10:42 APTT 20.3 L (22.0-30.0) sec D-Dimer 0.85 H (<0.60) mg/L FEU BUN 24 H (9-20) mg/dL Glucose 118 H (74-99) mg/dL Magnesium 1.5 L (1.6-2.3) mg/dL Triglycerides 333 H (<150) mg/dL Cholesterol 266 H (<200) mg/dL LDL Cholesterol, Calc 152 H (0-99) mg/dL 04/12/20 Range/Units 09:19 APTT (22.0-30.0) sec D-Dimer (<0.60) mg/L FEU BUN (9-20) mg/dL Glucose 137 H (74-99) mg/dL Magnesium (1.6-2.3) mg/dL Triglycerides (<150) mg/dL Cholesterol (<200) mg/dL LDL Cholesterol, Calc (0-99) mg/dL
[2020-04-12] MEDS: FINASTERIDE 5 MG TAB PO SCH ×2 (10:19→10:24)
[2020-04-12] MEDS ORDERED: FENOFIBRATE 160 MG TAB PO SCH (11:00)
[2020-04-12 11:37] VITALS: PULSE 74
--- NOTE | 2020-04-12 12:07 | XR ---
EXAMINATION TYPE: XR shoulder complete LT DATE OF EXAM: 04/12/2020 CLINICAL HISTORY: Pain after fall injury. TECHNIQUE: Three views of the left shoulder are obtained. COMPARISON: Left shoulder x-ray August 14, 2014. FINDINGS: There is no acute fracture/dislocation evident in the left shoulder. The acromioclavicula r and glenohumeral joint spaces appear stable. The visualized ribs are intact . IMPRESSION: There is no acute fracture or dislocation in the left shoulder. No significant change fr om prior.
--- NOTE | 2020-04-12 12:07 | XR ---
EXAMINATION TYPE: XR humerus LT DATE OF EXAM: 04/12/2020 COMPARISON: None HISTORY: Recent fall, pain TECHNIQUE: 2 view left humerus FINDINGS: No acute fractures or dislocations are evident. Joint spaces appear preserved. Follow-up ex ams can be performed 7-10 days from acute trauma for continued pain. IMPRESSION: 1. Normal 2 view left humerus
[2020-04-12] MEDS ORDERED: PRAMIPEXOLE 0.25 MG TAB PO SCH (16:00)
--- NOTE | 2020-04-12 19:21 | DS ---
DISCHARGE SUMMARY DATE OF SERVICE: 04/12/2020. FINAL DIAGNOSES: 1. Chest pain, myocardial infarction ruled out. 2. Syncope, possibly vasovagal secondary to nitroglycerin intake. 3. Left arm pain with no fractures. 4. Elevated D-dimer with no evidence of pulmonary embolism. 5. Possible hilar and mediastinal lymphadenopathy reactive need a 6 months follow up on the CT scan report. 6. Hypomagnesemia. 7. Hyperlipidemia. 8. Chronic angina. 9. Chronic obstructive pulmonary disease. 10.Gastroesophageal reflux disease. 11.History of hearing disorder and deafness. 12.Hypertension. 13.History of carpal tunnel syndrome. 14.Obesity with body mass index of 31. 15.Remote history of nicotine dependence. DISCHARGE DISPOSITION: The patient being discharged in stable condition. Guarded prognosis. Cardiology recommend the patient for discharge. HISTORY OF PRESENT ILLNESS: This 64-year-old gentleman with past medical history of multiple medical problems was admitted with chest pain. Myocardial infarction ruled out. Cardiology saw the patient and recommended outpatient followup. The patient also had a syncopal episode after taking nitroglycerin, thought to be vasovagal or hypotensive reaction secondary to syncope. Magnesium improved to 1.7 and 1.5. D-dimer was 0.8. There was no evidence of pulmonary embolism. On exam, vitals are stable. Cardiovascular: S1, S2. Abdomen soft. Nervous system: No focal deficits. The triglycerides are 333 and cholesterol is 266 and LDL is 152. Recommend close followup in the outpatient setting. The patient might be a candidate for Repatha. As mentioned earlier, a CT scan of the chest also may be arranged in the outpatient setting with Dr. Harkins's office for followup of the abnormal lymphadenopathy. Borderline abnormal lymphadenopathy visualized in the CT scan. A pulmonary consultation with Dr. Méndez in 3 weeks also being arranged. DISCHARGE MEDICATION AND RECOMMENDATIONS: 1. Diet is cardiac. 2. Activity limited until followup. 3. Follow up with Dr. Harkins in 2-3 days. 4. Follow up with Dr. Méndez as recommended. 5. Follow up with Cardiology as recommended. 6. Further workup per Cardiology. MEDICATIONS: 1. Coreg 3.125 mg p.o. b.i.d. 2. Ecotrin 81 mg. 3. Flomax 0.8 q.h.s. 4. Imdur ER 30 mg daily. 5. Iron sulfate 325 mg p.o. daily. 6. Lipitor 80 mg q.h.s. 7. Mirapex 0.25 mg b.i.d. 8. Mobic 15 mg p.o. daily. 9. Nitrostat 0.4 sublingual p.r.n. 10.Omeprazole 40 mg p.o. b.i.d. 11.Proscar 5 mg. 12.Pulmicort 0.5 mg b.i.d. 13.Singulair 10 mg p.o. daily. 14.Albuterol 2.5 q.i.d. p.r.n. 15.Vitamin B12, 1000 mcg p.o. 16.Vitamin C 250 mg p.o. daily. 17.Vitamin D3 2000 daily. 18.Zoloft 50 mg daily. 19.Zyrtec 10 mg daily. 20.Lofibra 160 mg p.o. daily. 21.[place] 5 mg q.6 p.r.n. 22.Tylenol p.r.n. MMALVARO / ARSLANN: [id number] /
[2020-04-12] MEDS ORDERED: BUDESONIDE 0.5 MG/2 ML NEBU INHALATION SCH (20:00)
[2020-04-12] MEDS ORDERED: TAMSULOSIN 0.4 MG CAP.ER.24H PO SCH (21:00)
[2020-04-12] MEDS ORDERED: FINASTERIDE 5 MG TAB PO SCH (21:00)
== END 2020-04-12 13:30 | disposition home or self-care (01) ==
LOC: EC 10:23 → 1SOBS 11:18
PROVIDERS: ADMIT Hospitalist; ATTEND Hospitalist
DX: R07.89 Other chest pain (principal); R55 Syncope and collapse; R42 Dizziness and giddiness; R00.0 Tachycardia, unspecified; M79.602 Pain in left arm; R79.1 Abnormal coagulation profile; R91.8 Other nonspecific abnormal finding of lung field; E83.42 Hypomagnesemia; I20.9 Angina pectoris, unspecified; J44.9 Chronic obstructive pulmonary disease, unspecified; K21.9 Gastro-esophageal reflux disease without esophagitis; H91.92 Unspecified hearing loss, left ear; I11.9 Hypertensive heart disease without heart failure; E66.9 Obesity, unspecified; E78.5 Hyperlipidemia, unspecified; R94.31 Abnormal electrocardiogram [ECG] [EKG]; I49.1 Atrial premature depolarization; R20.2 Paresthesia of skin; R20.0 Anesthesia of skin; Z86.69 Personal history of other diseases of the nervous system and sense organs; Z87.891 Personal history of nicotine dependence; Z79.899 Other long term (current) drug therapy; Z79.82 Long term (current) use of aspirin; Z79.51 Long term (current) use of inhaled steroids; Z79.1 Long term (current) use of non-steroidal anti-inflammatories (NSAID); Z98.890 Other specified postprocedural states; Z68.31 Body mass index [BMI] 31.0-31.9, adult; Z80.9 Family history of malignant neoplasm, unspecified; Z82.49 Family history of ischemic heart disease and other diseases of the circulatory system; Z80.3 Family history of malignant neoplasm of breast; Z83.79 Family history of other diseases of the digestive system; Z83.1 Family history of other infectious and parasitic diseases
CPT/HCPCS: 93005 ×2; 96372 ×2; 96376; 96365; 96366; 96375; 99285; 36415; 94640; 93306; 85379; 83880; 80061; 80053; 80048; 83690; 83735 ×2; 84484; 85025; 85610; 85730; 73030; 73060; 71046; 71275; G0378 ×2; J1644 ×3; J2405; J2270; Q9967

== ENCOUNTER → 2020-05-23 | Outpatient (CLI) | payer OTHER | END | disposition home or self-care (01) | LOC: LABWHC1 10:49 | PROVIDERS: ATTEND Internal Medicine Critical Care Medicine | DX: J45.909 Unspecified asthma, uncomplicated (principal) | CPT/HCPCS: 36415; 82785; 85008 ==

== ENCOUNTER 2020-06-29 20:47 | Emergency (ER) | payer OTHER ==
[2020-06-29 20:56] VITALS: BP 150/87; TEMP 97.8
[2020-06-29] MEDS ORDERED: IPRATROPIUM-ALBUTEROL 3 ML NEB INHALATION STA (21:25)
[2020-06-29] MEDS ORDERED: methylPREDNISolone SOD SUCCI 125 MG/2 ML VIAL IV STA (21:25)
[2020-06-29 21:56] LABS: Basophils # (A) 0.1 k/uL (0-0.2); Basophils % (A) 1 %; Eosinophils # (A) 0.2 k/uL (0-0.7); Eosinophils % (A) 3 %; HCT 43.7 % (39.0-53.0); HGB 14.6 gm/dL (13.0-17.5); Lymphocytes # (A) 2.2 k/uL (1.0-4.8); Lymphocytes % (A) 32 %; MCH 30.2 pg (25.0-35.0); MCHC 33.4 g/dL (31.0-37.0); MCV 90.6 fL (80.0-100.0); Mean Platelet Volume 7.2; Monocytes # (A) 0.5 k/uL (0-1.0); Monocytes % (A) 7 %; Neutrophils % (A) 56 %; Platelet Count 202 k/uL (150-450); RBC 4.82 m/uL (4.30-5.90); RDW 13.7 % (11.5-15.5); WBC 7.1 k/uL (3.8-10.6)
[2020-06-29 22:03] VITALS: RESP 18
--- NOTE | 2020-06-29 22:05 | XR ---
EXAMINATION TYPE: XR chest 2V DATE OF EXAM: 06/29/2020 COMPARISON: 04/11/2020 HISTORY: Cough TECHNIQUE: FINDINGS: There is no heart failure nor confluent pneumonic infiltrate. Costophrenic angles are clear . There are no hilar masses. The bony thorax is intact. IMPRESSION: No active cardiopulmonary disease. Normal heart. No change.
[2020-06-29 22:10] VITALS: PULSE 74
--- NOTE | 2020-06-29 22:20 | ED ---
Alcohol HPI - General Chief Complaint: Alcohol Stated Complaint: ETOH Time Seen by Provider: 06/29/20 21:03 Source: patient, EMS Mode of arrival: EMS Limitations: no limitations - History of Present Illness Initial Comments: 64-year-old male with history of COPD presents to emergency department with a chief complaint of alcohol intoxication. Patient states he went outside to "catch some fresh air". Patient states then he decided to sit down outside because the weather was denies. Patient also reports having several beers due to increased stress from recent family deaths. Patient reports he typically does not drink much alcohol. He was supposedly feeling more wheezy than usual due to his COPD. He does not use oxygen at home but is scheduled to have an oxygen tank. He does use nebulized treatments of inhaled corticosteroids and beta-2 agonist at home. He denies any chest pain or shortness of breath. States this feels like his typical COPD exacerbation at this time. - Related Data Home Medications Medication Instructions Recorded Confirmed Tamsulosin HCl [Flomax] 0.4 mg PO HS 08/14/14 04/11/20 Albuterol Nebulized [Ventolin 2.5 mg INHALATION RT-Q4H PRN 06/29/18 04/11/20 Nebulized] Aspirin EC [Ecotrin Low Dose] 81 mg PO DAILY 06/29/18 04/11/20 Atorvastatin Calcium [Lipitor] 80 mg PO HS 06/29/18 04/11/20 Cetirizine HCl [Zyrtec] 10 mg PO DAILY 06/29/18 04/11/20 Finasteride [Proscar] 5 mg PO DAILY 06/29/18 04/11/20 Isosorbide Mononitrate ER [Imdur] 30 mg PO DAILY 06/29/18 04/11/20 Nitroglycerin Sl Tabs [Nitrostat] 0.4 mg SUBLINGUAL Q5M PRN 06/29/18 04/11/20 Omeprazole 40 mg PO BID 06/29/18 04/11/20 Sertraline HCl [Zoloft] 50 mg PO DAILY 06/29/18 04/11/20 carvediloL [Coreg] 3.125 mg PO BID 06/29/18 04/11/20 Cholecalciferol [Vitamin D3 (25 2,000 unit PO DAILY 09/13/18 04/11/20 Mcg = 1000 Iu)] Ascorbic Acid [Vitamin C] 250 mg PO DAILY 02/11/20 04/11/20 Budesonide [Pulmicort] 0.5 mg INHALATION RT-BID 02/11/20 04/11/20 Ferrous Sulfate [Iron (65 MG 325 mg PO DAILY 02/11/20 04/11/20 Elemental)] Meloxicam [Mobic] 15 mg PO DAILY 02/11/20 04/11/20 Montelukast [Singulair] 10 mg PO DAILY 02/11/20 04/11/20 Pramipexole [Mirapex] 0.25 mg PO BID@1600,2100 02/11/20 04/11/20 Cyanocobalamin (Vitamin B-12) 1,000 mcg PO DAILY 04/11/20 04/11/20 [Vitamin B-12] Previous Rx's Medication Instructions Recorded Acetaminophen Tab [Tylenol] 650 mg PO Q6HR PRN tab 04/12/20 Fenofibrate [Lofibra] 160 mg PO DAILY 30 Days #30 tab 04/12/20 HYDROcodone/APAP 5-325MG [[place] 1 tab PO Q6HR PRN 3 Days #12 tab 04/12/20 5-325] Allergies Allergy/AdvReac Type Severity Reaction Status Date / Time No Known Allergies Allergy Verified 06/29/20 20:50 Review of Systems ROS Statement: Those systems with pertinent positive or pertinent negative responses have been documented in the HPI. ROS Other: All systems not noted in ROS Statement are negative. Past Medical History Past Medical History: Chest Pain / Angina, COPD, GERD/Reflux, Hearing Disorder / Deafness, Hyperlipidemia, Hypertension Additional Past Medical History / Comment(s): , LT EAR DEAF-READS LIPS, CARPAL TUNNEL. History of Any Multi-Drug Resistant Organisms: None Reported Past Surgical History: No Surgical Hx Reported Additional Past Surgical History / Comment(s): rt carpal tunnel sx, upper scope Past Anesthesia/Blood Transfusion Reactions: No Reported Reaction Past Psychological History: No Psychological Hx Reported Smoking Status: Former smoker Past Alcohol Use History: Occasional Past Drug Use History: None Reported - Past Family History Sister(s) Family Medical History: Cancer Father Family Medical History: Myocardial Infarction ([place]) Mother Family Medical History: Cancer, Hypertension, Liver Disease Additional Family Medical History / Comment(s): tb in 1967, breast cancer General Exam Limitations: no limitations General appearance: alert, in no apparent distress Head exam: Present: atraumatic, normocephalic, normal inspection Eye exam: Present: normal appearance, PERRL, EOMI Pupils: Present: normal accommodation ENT exam: Present: normal exam, normal oropharynx, mucous membranes moist Neck exam: Present: normal inspection, full ROM. Absent: tenderness Respiratory exam: Present: wheezes (Diffuse bilateral wheezing, mild to moderate.). Absent: normal lung sounds bilaterally, rales, rhonchi, stridor, ch est wall tenderness, accessory muscle use Cardiovascular Exam: Present: regular rate, normal rhythm, normal heart sounds GI/Abdominal exam: Present: soft. Absent: distended, tenderness, guarding, rebound Extremities exam: Present: normal inspection, full ROM. Absent: tenderness Back exam: Present: normal inspection, full ROM. Absent: tenderness Neurological exam: Present: alert, oriented X3 Psychiatric exam: Present: normal affect, normal mood Skin exam: Present: warm, dry, intact, normal color Course Vital Signs 06/29/20 06/29/20 06/29/20 20:51 22:03 22:09 Temperature 97.8 F Pulse Rate 86 73 74 Respiratory 16 18 18 Rate Blood Pressure 150/87 O2 Sat by Pulse 95 Oximetry Medical Decision Making - Medical Decision Making 64-year-old male with history of COPD presents emergency Department with a chief complaint of A call intoxication. Patient does not typically drink but only due to increased stress from recent family deaths. He is otherwise not a drinker. Chest x-ray is unremarkable. He did have diffuse wheezing bilaterally. Patient was treated for COPD exacerbation with DuoNeb and Solu- Medrol. On reevaluation, patient reports improvement in symptoms and is ready to go home. Patient is going to call somebody to pick him up. Patient was over psychiatric evaluation, he declined. Denies was homicidal, suicidal thoughts or ideations. Strict return parameters were thoroughly discussed with patient was understanding and agreeable. Case discussed with . - Lab Data Result diagrams: 06/29/20 21:44 06/29/20 21:44 Lab Results 06/29/20 06/29/20 Range/Units 21:44 21:44 WBC 7.1 (3.8-10.6) k/uL RBC 4.82 (4.30-5.90) m/uL Hgb 14.6 (13.0-17.5) gm/dL Hct 43.7 (39.0-53.0) % MCV 90.6 (80.0-100.0) fL MCH 30.2 (25.0-35.0) pg MCHC 33.4 (31.0-37.0) g/dL RDW 13.7 (11.5-15.5) % Plt Count 202 (150-450) k/uL MPV 7.2 Neutrophils % 56 % Lymphocytes % 32 % Monocytes % 7 % Eosinophils % 3 % Basophils % 1 % Neutrophils # 4.0 (1.3-7.7) k/uL Lymphocytes # 2.2 (1.0-4.8) k/uL Monocytes # 0.5 (0-1.0) k/uL Eosinophils # 0.2 (0-0.7) k/uL Basophils # 0.1 (0-0.2) k/uL Sodium 143 (137-145) mmol/L Potassium 3.9 (3.5-5.1) mmol/L Chloride 105 (98-107) mmol/L Carbon Dioxide 23 (22-30) mmol/L Anion Gap 15 mmol/L BUN 21 H (9-20) mg/dL Creatinine 0.76 (0.66-1.25) mg/dL Est GFR (CKD-EPI)AfAm >90 (>60 ml/min/1.73 sqM) Est GFR (CKD-EPI)NonAf >90 (>60 ml/min/1.73 sqM) Glucose 112 H (74-99) mg/dL Calcium 9.4 (8.4-10.2) mg/dL Total Bilirubin 0.3 (0.2-1.3) mg/dL AST 48 (17-59) U/L ALT 195 H (4-49) U/L Alkaline Phosphatase 73 (38-126) U/L Total Protein 7.3 (6.3-8.2) g/dL Albumin 4.5 (3.5-5.0) g/dL Disposition Clinical Impression: Alcoholic intoxication, COPD exacerbation Disposition: HOME SELF-CARE Condition: Stable Instructions (If sedation given, give patient instructions): Alcohol Intoxication (ED) Additional Instructions: Please return to the Emergency Department if symptoms worsen or any other concerns. Is patient prescribed a controlled substance at d/c from ED?: No Referrals: None,Stated [Primary Care Provider] - 1-2 days Time of Disposition: 22:33
[2020-06-29 22:26] LABS: AST 48 U/L (17-59); African American GFR (CKD) >90 (>60 ml/min/1.73 sqM); Albumin 4.5 g/dL (3.5-5.0); Alkaline Phosphatase 73 U/L (38-126); Anion Gap 15 mmol/L; Blood Urea Nitrogen 21 mg/dL (9-20); Calcium 9.4 mg/dL (8.4-10.2); Carbon Dioxide 23 mmol/L (22-30); Chloride 105 mmol/L (98-107); Glucose 112 mg/dL (74-99); Non-African American GFR(CKD) >90 (>60 ml/min/1.73 sqM); Sodium 143 mmol/L (137-145); Total Bilirubin 0.3 mg/dL (0.2-1.3); Total Protein 7.3 g/dL (6.3-8.2)
[2020-06-29 22:28] LABS: ALT 195 U/L (4-49); Potassium 3.9 mmol/L (3.5-5.1)
== END 2020-06-29 23:10 | disposition home or self-care (01) ==
LOC: EC 20:47
DX: F10.129 Alcohol abuse with intoxication, unspecified (principal); J44.1 Chronic obstructive pulmonary disease with (acute) exacerbation; K21.9 Gastro-esophageal reflux disease without esophagitis; E78.5 Hyperlipidemia, unspecified; I10 Essential (primary) hypertension; Z87.891 Personal history of nicotine dependence
CPT/HCPCS: 36415; 94640; 93005; 80053; 85025; 71046; 99284; 96374; J2930

== ENCOUNTER → 2021-05-26 | Outpatient (CLI) | payer OTHER ==
--- NOTE | 2021-05-28 10:46 | P.ARTDOP ---
Arterial Doppler LOWER EXTREMITY ARTERIAL DOPPLER: DATE OF SERVICE: 05/26/2021 Reason for study: Leg pain with walking. Doppler waveforms: Multiphasic bilaterally throughout. Digital waveforms are somewhat blunted.. Pulse volume recording: []. Pressure gradients: Only at the foot level. Ankle-brachial indices: Greater than 1 bilaterally. Toe brachial indices: 0.44 on the right, 0.41 on the left Impression: Proximal vascular status appears normal. Decreased toe waveforms and pressures most likely related to vasospastic phenomenon. Distal occlusive disease less likely. Clinical correlation recommended.
== END | disposition home or self-care (01) ==
LOC: RADUSWWP 09:39
DX: M79.604 Pain in right leg (principal); M79.605 Pain in left leg
CPT/HCPCS: 93922

== ENCOUNTER → 2021-12-25 | Outpatient (CLI) | payer MEDICARE ==
--- NOTE | 2021-12-25 17:07 | P.SLEEP ---
History of Present Illness DATE: 12/25/2021 CONSULTATION/NEW PATIENT EVALUATION HISTORY OF PRESENT ILLNESS/SLEEP-WAKE EVALUATION: 66 year old gentleman had been evaluated in the sleep center for obstructive sleep apnea hypopnea syndrome. I saw patient in July 2018 in our office. Sleep study which was done at that time showed mild obstructive sleep apnea-hypopnea syndrome. Because patient was presented with excessive daytime sleepiness and hypertension he was initiated on treatment with CPAP. Patient came for follow-up visit today. She did not use any CPAP therapy for more than one year. He is refusing to use CPAP therapy, wants to consider treatment with Inspire. SLEEP SCHEDULE: Usually sleep schedule on weekdays from 9 PM to 6 AM, during days off from 10 PM to 7 AM. FALLING ASLEEP: Patient does have problem with the falling asleep, used to read in bedroom.. DURING SLEEP: Patient wakes up from sleep 3 times with nocturia and restless leg symptoms. No history of hypnogogical hallucinations, sleep paralysis, or cataplexy. DURING THE DAY/WAKE STATE: In the morning patient wake up tired, has problems with memory, concentration, depression, anxiety claustrophobia. [place] sleepiness scale is 9. Patient doesn't take any naps, he drink step 10 cups of coffee a day. PAST MEDICAL HISTORY: Hypertension, COPD, acid reflux, depression, angina in the past with negative cardiac workup. PAST SURGICAL HISTORY: Right arm surgery for carpal tunnel syndrome in 2004. MEDICATIONS: Atorvastatin, Tumsulosin, sertraline, omeprazole, isosorbide, aspirin, albuterol and Combivent inhalers. SOCIAL HISTORY: 40 pack years history of smoking quit 12 years ago, alcohol consumption none. FAMILY HISTORY: Hypertension, heart problems, during the sleep. REVIEW OF SYSTEMS: Multiple awakenings from sleep, episodes of sleepiness. No fevers. No double vision. No recent chest pain. No shortness of breath. No abdominal pain. No bleeding episodes. No blood in urine. No seizure episodes. PHYSICAL EXAMINATION: GENERAL: A pleasant patient without any distress. VITAL SIGNS: BP 147/72 , HR 102 , RR 16 , weight 176 pounds, height 5 foot 8 inches, body mass index 26.7 , oxygen saturation at room air 96%, temperature 98.1. HEENT: PERRLA, EOMI. Evaluation of oropharynx showed tongue protrudes midline, low position of soft palate Mallampati 3. NECK: Supple. No JVD. Thyroid is not palpable. 15.5 inches in circumference. LUNGS: Clear to percussion and to auscultation. Good air exchange. No wheezing or rhonchi. HEART: S1, S2 regular. No murmurs, gallops or rubs. ABDOMEN: Soft and nontender. Bowel sounds are present. No organomegaly appreciated. EXTREMITIES: No clubbing or cyanosis. 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 Cranial nerves 2 to 7 intact. There is no fasciculation or atrophy noted. No focal deficits observed. ASSESSMENT: 1. History of mild obstructive sleep apnea-hypopnea syndrome documented by polysomnogram more than 3 years ago. Patient does not want to use CPAP therapy, prefers to consider Inspire. 2. History of hypertension. 3 COPD. 4. Acid reflux. 5 hyperlipidemia. 6. History of depression. 7. History of episodes of angina with a negative cardiac workup in the past. PLAN: 1. Polysomnography for evaluation of patient's breathing during sleep. 2. Following plan after reviewing results of sleep study 3. Preferable position during sleep on the side. 4. No driving if patient feels any sleepiness. Patient is aware of civil and criminal liability for unsafe driving. 5. Sleep hygiene with regular sleep time for at least 7.5-8 hours. 6. Watching weight. Thank you very much for referring this patient for consultation. Sincerely, Wilfredo Samuel MD, PhD, FAASM. Diplomat of [place] [employer], Sleep Medicine Board by [place] [employer] [place] [employer] [facility] [place] Past Medical History Past Medical History: Chest Pain / Angina, COPD, GERD/Reflux, Hearing Disorder / Deafness, Hyperlipidemia, Hypertension Additional Past Medical History / Comment(s): , LT EAR DEAF-READS LIPS, CARPAL TUNNEL. History of Any Multi-Drug Resistant Organisms: None Reported Past Surgical History: No Surgical Hx Reported Additional Past Surgical History / Comment(s): rt carpal tunnel sx, upper scope Past Anesthesia/Blood Transfusion Reactions: No Reported Reaction Past Psychological History: No Psychological Hx Reported Smoking Status: Former smoker Past Alcohol Use History: Occasional Past Drug Use History: None Reported - Past Family History Sister(s) Family Medical History: Cancer Father Family Medical History: Myocardial Infarction ([place]) Mother Family Medical History: Cancer, Hypertension, Liver Disease Additional Family Medical History / Comment(s): tb in 1967, breast cancer Medications and Allergies Home Medications Medication Instructions Recorded Confirmed Type Tamsulosin HCl [Flomax] 0.4 mg PO HS 08/14/14 04/11/20 History Albuterol Nebulized [Ventolin 2.5 mg INHALATION RT-Q4H PRN 06/29/18 04/11/20 History Nebulized] Aspirin EC [Ecotrin Low Dose] 81 mg PO DAILY 06/29/18 04/11/20 History Atorvastatin Calcium [Lipitor] 80 mg PO HS 06/29/18 04/11/20 History Cetirizine HCl [Zyrtec] 10 mg PO DAILY 06/29/18 04/11/20 History Finasteride [Proscar] 5 mg PO DAILY 06/29/18 04/11/20 History Isosorbide Mononitrate ER [Imdur] 30 mg PO DAILY 06/29/18 04/11/20 History Nitroglycerin Sl Tabs [Nitrostat] 0.4 mg SUBLINGUAL Q5M PRN 06/29/18 04/11/20 History Omeprazole 40 mg PO BID 06/29/18 04/11/20 History Sertraline HCl [Zoloft] 50 mg PO DAILY 06/29/18 04/11/20 History carvediloL [Coreg] 3.125 mg PO BID 06/29/18 04/11/20 History Cholecalciferol [Vitamin D3 (25 2,000 unit PO DAILY 09/13/18 04/11/20 History Mcg = 1000 Iu)] Ascorbic Acid [Vitamin C] 250 mg PO DAILY 02/11/20 04/11/20 History Budesonide [Pulmicort] 0.5 mg INHALATION RT-BID 02/11/20 04/11/20 History Ferrous Sulfate [Iron (65 MG 325 mg PO DAILY 02/11/20 04/11/20 History Elemental)] Meloxicam [Mobic] 15 mg PO DAILY 02/11/20 04/11/20 History Montelukast [Singulair] 10 mg PO DAILY 02/11/20 04/11/20 History Pramipexole [Mirapex] 0.25 mg PO BID@1600,2100 02/11/20 04/11/20 History Cyanocobalamin (Vitamin B-12) 1,000 mcg PO DAILY 04/11/20 04/11/20 History [Vitamin B-12] Acetaminophen Tab [Tylenol] 650 mg PO Q6HR PRN tab 04/12/20 Rx Fenofibrate [Lofibra] 160 mg PO DAILY 30 Days #30 tab 04/12/20 Rx HYDROcodone/APAP 5-325MG [[place] 1 tab PO Q6HR PRN 3 Days #12 tab 04/12/20 Rx 5-325] Allergies Allergy/AdvReac Type Severity Reaction Status Date / Time No Known Allergies Allergy Verified 06/29/20 20:50 Sleep Note - Sleep Note Sleep Note: Temperature: Pulse Rate: Respiratory Rate: Blood Pressure: SpO2: Height: Weight: BMI: Neck Circumference:
== END ==
LOC: SLEEP 15:34
PROVIDERS: ATTEND Internal Medicine
DX: G47.33 Obstructive sleep apnea (adult) (pediatric) (principal); Z99.89 Dependence on other enabling machines and devices; I10 Essential (primary) hypertension; J44.9 Chronic obstructive pulmonary disease, unspecified; K21.9 Gastro-esophageal reflux disease without esophagitis; E78.5 Hyperlipidemia, unspecified; F32.A Depression, unspecified; Z86.79 Personal history of other diseases of the circulatory system; Z87.891 Personal history of nicotine dependence; Z79.01 Long term (current) use of anticoagulants; Z79.82 Long term (current) use of aspirin
CPT/HCPCS: 99211

== ENCOUNTER → 2022-04-08 | Outpatient (CLI) | payer MEDICARE ==
--- NOTE | 2022-04-08 11:19 | P.PN ---
Subjective DATE: 04/08/2022 FOLLOW UP VISIT. 66-year-old gentleman returned to sleep center for follow-up visit to discuss results of polysomnogram and following plan. Previous sleep study showed mild obstructive sleep apnea hypopnea syndrome. Patient was started on treatment with CPAP but did not use it and return to sleep center with the goal to start treatment with inspier. Sleep study has been done for ablation of patient breathing during the sleep at the present time. Sleep study did not show any significant respiratory abnormalities during sleep at the present time. Apnea- hypopnea index is only 0.6 with lowest oxygen level 89.8%. Significant amount of periodic limb movements have been documented 50.5 times per hour with 6.7 micro-arousals per hour . [place] sleepiness scale is 4 today, which is normal. MEDICATIONS:1. Albuterol 2. Isosorbide 3. Omeprazole 4. Gabapentin 5. Tamsulosin 6. Mirapex During physical exam: GENERAL: A pleasant patient without any distress. VITAL SIGNS: BP 115/76, HR 110, RR 18 , weight 179.0, temperature 89.3, oxygen saturation at room air 98% . HEENT: PERRLA, EOMI. NECK: Supple. No JVD. LUNGS: Clear to percussion and to auscultation. Good air exchange. No wheezing or rhonchi. HEART: S1, S2 regular. ABDOMEN: Soft and nontender. EXTREMITIES: No clubbing or cyanosis. COOKER SULFITE: Awake, alert, and oriented x3. No focal deficit. Impressions: 1. No significant respiratory abnormalities by results of polysomnogram. Normal oxygenation during sleep. 2. Significant periodic limb movements 50.5 times per hour with 6.7 micro-arousals per hour have been documented. 3. History of hypertension. 4. COPD. 5. Acid reflux. 6. Hyperlipidemia. 7. History of depression. 8. History of episodes of angina with negative cardiac workup in the past. Plan: 1. Please check iron profile with ferritin level. If ferritin level is less than 50 ng/mL, iron supplement is recommended 2. Sleep hygiene with regular time in bed for at least 8 hours. 3. Treatment with small doses of dopaminergic agonists for restless legs and periodic limb movements. 4. Precautions related to driving. No driving if feel any sleepiness. Patient is aware about civil and criminal liability for unsafe driving, promised to follow recommendations. 5. Follow up visit in 12 months or earlier if patient has any problems. Thank you very much for allowing me to participate in the management of your patient. Wilfredo Samuel MD, PhD, FAASM. Diplomat of [place] [employer], Sleep Medicine Board by [place] [employer] [facility] [place]
== END ==
LOC: SLEEP 10:29
PROVIDERS: ATTEND Internal Medicine
DX: G47.61 Periodic limb movement disorder (principal); J44.9 Chronic obstructive pulmonary disease, unspecified; K21.9 Gastro-esophageal reflux disease without esophagitis; E78.5 Hyperlipidemia, unspecified; I10 Essential (primary) hypertension; Z86.79 Personal history of other diseases of the circulatory system; Z87.891 Personal history of nicotine dependence
CPT/HCPCS: 99212

== ENCOUNTER → 2023-08-19 | Outpatient (CLI) | payer MEDICARE ==
--- NOTE | 2023-08-19 14:36 | P.PAINPG ---
PQRS Measure Charge Sheet Comment: HISTORY OF PRESENT ILLNESS: A 68 yr old male as a referral from Dr Borden presents today w severe and chronic LBP > 6 mo secondary to DDD, spondylosis and facet arthropathy without myelopathy for evaluation. Pt states pain level is provoked at 6 /10 in intensity, constant, localized in the lumbar spine, predominantly axial, achy in character w occasional shooting pain towards BLEs. Pain is provoked by weight bearing activity. Pain is alleviated by PT x 6 wks which ended in 2022, physician guided home exercises/ stretches every other day since Apr 2023, medications (ASA, Ibu, Tyl), topical, use of a cane for ambulatory assistance, repositioning and rest . Oswestry axial pain score at 36. PMH: OA, HTN, Hyperlipidemia, COPD, GERD, MDD, Angina, ZAC, [place] PSH: RUE Surgery, R Carpal Tunnel Release, EGD (2019) SH: Former 40 pack/ yr tobacco user, Occasional ETOH use, No illicit drug use FH: Sis- [place]. Fa- [place]. Mo- Breast CA, TB in 1967, Liver Disease, CAD All: See list Meds: See list REVIEW OF ORGAN SYSTEMS: CONSTITUTIONAL: No fevers or chills. No recent weight loss. NEUROLOGICAL: + numbness and tingling along the distal extremities. No seizure disorders or headaches. MUSCULOSKELETAL: + pain PSYCHIATRIC: Denies current depression or suicidal thoughts. Physical Examinations : Constitutional : Cooperative , not in acute distress . Neurologic : Cranial nerve II to XII intact. No focal neurological deficits. Psychiatric : alert & oriented x 3. Matching mood & appropriate affect. Judgment & insight intact. Musculoskeletal : Cervical Spine Motor strength in the deltoid and biceps: Normal right side. Normal Left side Motor strength biceps and the wrist extensors: Normal right side . Normal left side Motor strength in the triceps muscle: Normal right side. Normal left side Deep tendon reflexes: Normal at the biceps. Normal at Brachioradialis. Normal at triceps Vertebral body tenderness to deep palpation over Cervical facet loading test: positive bilaterally Spurling test: positive bilaterally Neck distraction test: positive bilaterally Frank sign: positive bilaterally Lumbar spine Motor strength lower extremities ,thigh and legs 5/5 Right side , 5/5 Left side Deep tendon reflexes : Normal Knee Jerk. Normal Ankle Jerk Vertebral body tenderness over L4 Triplett Test positive BL L3-L5 Lumbar facet Loading Test: positive Right / positive Left Range of motion of the lumbar spine Flexion 30 degrees, extension 10 degrees Straight Leg Raise test: Left/ Right positive at degrees Lizet test: positive right / positive left. Severe tenderness over the Sacroiliac joint on the Right / Left sides Gaenslen test: positive bilaterally Seated flexion test: positive bilaterally. Sacral spine : Severe tenderness over the Sacroiliac joint: right side / left side Range of motion: Flexion of the lumbar spine <60 degrees Range of motion: Extension of the lumbar spine <20 degrees Gaenslen's Test positive Lizet test: positive right side / left side Thigh Thrust Test Sacral Thrust Test Imaging: MRI non contrast of the lumbar spine from 07/14/23 reviewed Assessment/ Plan : L4-L5 severe spinal stenosis secondary to 11mm synovial cyst, DDD, spondylosis and facet arthropathy without myelopathy Recommendation of FRANKY L3-L4 #[address] Burk re: lumbar cyst. May need a series of injections for optimal pain relief. Risks, benefits of procedure discussed and patient verbalized understanding. Admits to anti- coagulant use or medical history of diabetes. Protocol for discontinuation/ continuation of medications tio procedure discussed. All questions answered. I have spent greater than 30 minutes on patient care today. Dr Donaldson was available by phone for the evaluation of this patient. The time was used to review the medical records including relevant urine studies and Prescription history (MAPs), review of the available imaging, evaluation and examination of the patient, coordination of care with the medical staff and if applicable referring physicians, as well as creation of the medical record PQRS Narrative: Smoking Status Former smoker Home Medications: Ambulatory Orders Tamsulosin HCl [Flomax] 0.4 mg PO HS 08/14/14 Albuterol Nebulized [Ventolin Nebulized] 2.5 mg INHALATION RT-Q4H PRN 06/29/18 Aspirin EC [Ecotrin Low Dose] 81 mg PO DAILY 06/29/18 Atorvastatin Calcium [Lipitor] 80 mg PO HS 06/29/18 Cetirizine HCl [Zyrtec] 10 mg PO DAILY 06/29/18 Finasteride [Proscar] 5 mg PO DAILY 06/29/18 Isosorbide Mononitrate ER [Imdur] 30 mg PO DAILY 06/29/18 Nitroglycerin Sl Tabs [Nitrostat] 0.4 mg SUBLINGUAL Q5M PRN 06/29/18 Omeprazole 40 mg PO BID 06/29/18 Sertraline HCl [Zoloft] 50 mg PO DAILY 06/29/18 carvediloL [Coreg] 3.125 mg PO BID 06/29/18 Cholecalciferol [Vitamin D3 (25 Mcg = 1000 Iu)] 2,000 unit PO DAILY 09/13/18 Ascorbic Acid [Vitamin C] 250 mg PO DAILY 02/11/20 Budesonide [Pulmicort] 0.5 mg INHALATION RT-BID 02/11/20 Ferrous Sulfate [Iron (65 MG Elemental)] 325 mg PO DAILY 02/11/20 Meloxicam [Mobic] 15 mg PO DAILY 02/11/20 Montelukast [Singulair] 10 mg PO DAILY 02/11/20 Pramipexole [Mirapex] 0.25 mg PO BID@1600,2100 02/11/20 Cyanocobalamin (Vitamin B-12) [Vitamin B-12] 1,000 mcg PO DAILY 04/11/20 Acetaminophen Tab [Tylenol] 650 mg PO Q6HR PRN tab 04/12/20 Fenofibrate [Lofibra] 160 mg PO DAILY 30 Days #30 tab 04/12/20 HYDROcodone/APAP 5-325MG [[place] 5-325] 1 tab PO Q6HR PRN 3 Days #12 tab 04/12/20 Controlled Substance Measures - Controlled Substance Measures Is patient prescribed a controlled substance at discharge?: No
[2023-08-19 15:10] VITALS: BP 132/89; PULSE 75; RESP 15; TEMP 97.5
== END ==
LOC: PNWHC3 13:26
PROVIDERS: ATTEND Specialist
DX: M51.36 Other intervertebral disc degeneration, lumbar region (principal); M47.816 Spondylosis without myelopathy or radiculopathy, lumbar region; M48.061 Spinal stenosis, lumbar region without neurogenic claudication; M71.38 Other bursal cyst, other site; G89.29 Other chronic pain; Z87.891 Personal history of nicotine dependence
CPT/HCPCS: 99211

== ENCOUNTER → 2023-09-07 | Day surgery (SDC) | payer MEDICARE ==
[~2023-09-07] MED LIST changes: +IOPAMIDOL M200 10 ML VIAL ONE; +ROPIVACAINE 5MG/ML 20ML VIAL ONE; +TRIAMCINOLONE ACETONIDE 40 MG/ML 1 ML VIAL ONE
[2023-09-07 07:51] VITALS: TEMP 97.7
--- NOTE | 2023-09-07 08:14 | P.PCN ---
Date of Procedure: 09/07/23 Surgeon: Denise Aguilar Pathology: none sent Condition: stable Disposition: PACU Description of Procedure: PREOPERATIVE DIAGNOSIS: 1-Lumbar radiculopathy 2- Lumber Degenerative Disc Diseases. POSTOPERATIVE DIAGNOSIS: 1-Lumbar radiculopathy. 2-Lumbar Degenerative Disc Diseases PROCEDURE 1. Lumbar epidural steroid injection under fluoroscopic guidance at the L3-4 level the left paramedian approach. 2. Lumbar epidurogram. ANESTHESIA: Local only with 1% lidocaine EBL: Minimal PROCEDURE INDICATION: The patient with low back pain and radiculitis symptoms unresponsive to conservative treatment. Fluoroscopy was used to optimize visualization of the needle placement and to maximize safety. PROCEDURE DESCRIPTION / TECHNIQUE: The patient was seen and identified in the preoperative area. Risks, benefits, complications including but not limited to infections ,bleeding ,allergic reaction to the medications ,nerve damage and not complete pain relief , and alternatives were discussed with the patient. The patient agreed to proceed with the procedure and signed the consent. IV was started, and vital signs were stable. Patient was taken to the OR and time out was completed. The patient was placed in the prone position on procedure table and a pillow was placed under the abdomen to reduce lumbar lordosis. The lumbosacral area was prepped and draped in the usual sterile fashion with ChloraPrep.Patient was closely monitored during the procedure. Conscious sedation was used during the procedure to decrease patients anxiety. Vital signs were monitered during the entire proced ure. Using anterior-posterior fluoroscopy, the L3-4 interlaminar space was identified and the skin over this site was marked and then infiltrated with 1% lidocaine subcutaneously. Subsequently, a 20-gauge Tuohy epidural needle was inserted and advanced toward the epidural space using the Loss of resistance to air technique and guided by AP and lateral fluoroscopy. The correct needle position in the epidural space was verified with the injection of 1 mL of the water soluble contrast dye Omnipaque 180 contrast and observing an excellent epidurogram with the epidural spread of the dye, after negative aspiration for blood and CSF and in the absence of paresthesias. Again after negative aspiration, a 6 ml mixture containing 80 mg of Kenalog and 3 ml of preservative free Normal Saline, and 1 ml of preservative free Ropivacaine 0.5% solution was injected and a washout of epidurogram was seen. Needle was withdrawn intact, skin was cleansed, and bandages were applied. patient tolerated procedure well and was transferred to PACU in stable condition.A copy of the needle placement picture was saved to the fluoroscopy machine. COMPLICATIONS: None
[2023-09-07 08:48] VITALS: BP 114/74; PULSE 71; RESP 14
--- NOTE | 2023-09-07 09:15 | FL ---
EXAMINATION TYPE: FL guided pain mgmt statistic DATE OF EXAM: 09/07/2023 HISTORY: Fluoroscopy time Total dose area product (DAP) in uGy*m?, mGy*cm? (or similar): 0.62529 IMPRESSION: 1. Fluoroscopy time.
== END ==
LOC: ORPAIN 06:48
PROVIDERS: ATTEND Anesthesiology
DX: M51.16 Intervertebral disc disorders with radiculopathy, lumbar region (principal); I10 Essential (primary) hypertension; Z79.82 Long term (current) use of aspirin; Z79.899 Other long term (current) drug therapy
CPT/HCPCS: 62323; J3301; Q9966; J2795

== ENCOUNTER → 2023-09-22 | Outpatient (CLI) | payer MEDICARE ==
[2023-09-22 12:49] VITALS: BP 135/83; PULSE 95; RESP 16
--- NOTE | 2023-09-22 14:53 | P.PAINPG ---
PQRS Measure Charge Sheet Comment: HISTORY OF PRESENT ILLNESS: A 68 yr old male as a referral from Dr Borden presents today w severe and chronic LBP > 6 mo secondary to DDD, spondylosis and facet arthropathy without myelopathy for evaluation s/p L paramedian FRANKY L3-L4 #1. Pt states he experienced 90% relief x 2 wks s/p procedure. Pt states pain level is provoked at 6 /10 in intensity, constant, localized in the lumbar spine, predominantly axial, achy in character w occasional shooting pain towards BLEs. Pain is provoked by weight bearing activity. Pain is alleviated by PT x 6 wks which ended in 2022, physician guided home exercises/ stretches every other day since Apr 2023, medications, topical, use of a cane for ambulatory assistance, repositioning and rest . Oswestry axial pain score at 35. Interventional procedures include FRANKY L3-L4 x1 Medications include ASA, Ibu, Tyl REVIEW OF ORGAN SYSTEMS: CONSTITUTIONAL: No fevers or chills. No recent weight loss. NEUROLOGICAL: + numbness and tingling along the distal extremities. No seizure disorders or headaches. MUSCULOSKELETAL: + pain PSYCHIATRIC: Denies current depression or suicidal thoughts. Physical Examinations : Constitutional : Cooperative , not in acute distress . Neurologic : Cranial nerve II to XII intact. No focal neurological deficits. Psychiatric : alert & oriented x 3. Matching mood & appropriate affect. Judgment & insight intact. Musculoskeletal : Cervical Spine Motor strength in the deltoid and biceps: Normal right side. Normal Left side Motor strength biceps and the wrist extensors: Normal right side . Normal left side Motor strength in the triceps muscle: Normal right side. Normal left side Deep tendon reflexes: Normal at the biceps. Normal at Brachioradialis. Normal at triceps Vertebral body tenderness to deep palpation over Cervical facet loading test: positive bilaterally Spurling test: positive bilaterally Neck distraction test: positive bilaterally Frank sign: positive bilaterally Lumbar spine Motor strength lower extremities ,thigh and legs 5/5 Right side , 5/5 Left side Deep tendon reflexes : Normal Knee Jerk. Normal Ankle Jerk Vertebral body tenderness over L4 Triplett Test positive BL L3-L5 Lumbar facet Loading Test: positive Right / positive Left Range of motion of the lumbar spine Flexion 30 degrees, extension 10 degrees Straight Leg Raise test: Left/ Right positive at degrees Lizet test: positive right / positive left. Severe tenderness over the Sacroiliac joint on the Right / Left sides Hortencia test: positive bilaterally Seated flexion test: positive bilaterally. Sacral spine : Severe tenderness over the Sacroiliac joint: right side / left side Range of motion: Flexion of the lumbar spine <60 degrees Range of motion: Extension of the lumbar spine <20 degrees Gaenslen's Test positive Lizet test: positive right side / left side Thigh Thrust Test Sacral Thrust Test Imaging: MRI non contrast of the lumbar spine from 07/14/23 reviewed Assessment/ Plan : L4-L5 severe spinal stenosis secondary to 11mm synovial cyst, DDD, spondylosis and facet arthropathy without myelopathy Recommendation of L paramedian FRANKY L3-L4 #2 . May need a series of injections for optimal pain relief. Risks, benefits of procedure discussed and patient verbalized understanding. Admits to anti- coagulant use or medical history of diabetes. Protocol for discontinuation/ continuation of medications tio procedure discussed. All questions answered. I have spent greater than 30 minutes on patient care today. Dr Donaldson was available by phone for the evaluation of this patient. The time was used to review the medical records including relevant urine studies and Prescription history (MAPs), review of the available imaging, evaluation and examination of the patient, coordination of care with the medical staff and if applicable referring physicians, as well as creation of the medical record PQRS Narrative: Smoking Status Former smoker Hx Alcohol Use (MH) No Home Medications: Ambulatory Orders Tamsulosin HCl [Flomax] 0.4 mg PO HS 08/14/14 Albuterol Nebulized [Ventolin Nebulized] 2.5 mg INHALATION RT-Q4H PRN 06/29/18 Aspirin EC [Ecotrin Low Dose] 81 mg PO QAM 06/29/18 Cetirizine HCl [Zyrtec] 10 mg PO QAM 06/29/18 Finasteride [Proscar] 5 mg PO QAM 06/29/18 Omeprazole 40 mg PO BID 06/29/18 Sertraline HCl [Zoloft] 50 mg PO QAM 06/29/18 Cholecalciferol [Vitamin D3 (25 Mcg = 1000 Iu)] 2,000 unit PO QAM 09/13/18 Ascorbic Acid [Vitamin C] 250 mg PO DAILY 02/11/20 Budesonide [Pulmicort] 0.5 mg INHALATION RT-BID 02/11/20 Ferrous Sulfate [Iron (65 MG Elemental)] 325 mg PO QAM 02/11/20 Pramipexole [Mirapex] 0.25 mg PO BID@1600,2100 02/11/20 Cyanocobalamin (Vitamin B-12) [Vitamin B-12] 1,000 mcg PO QAM 04/11/20 Gabapentin [Neurontin] 100 mg PO HS 09/03/23 Magnesium 250 mg PO QAM 09/03/23 diazePAM [Valium] 5 mg PO DAILY PRN 1 Days #2 tab 09/22/23 Controlled Substance Measures - Controlled Substance Measures Is patient prescribed a controlled substance at discharge?: Yes When asked, does pt state using other controlled substances?: Yes If prescribed controlled substance>3 days was MAPS reviewed?: Prescribed <3 Days
== END ==
LOC: PNWHC3 11:54
PROVIDERS: ATTEND Specialist
DX: M51.36 Other intervertebral disc degeneration, lumbar region (principal); M48.061 Spinal stenosis, lumbar region without neurogenic claudication; M47.816 Spondylosis without myelopathy or radiculopathy, lumbar region; Z87.891 Personal history of nicotine dependence
CPT/HCPCS: 99211

== ENCOUNTER 2023-12-28 09:53 | Day surgery (SDC) | payer MEDICARE ==
[~2023-12-28 09:53] MED LIST changes: -IOPAMIDOL M200 10 ML VIAL ONE; -ROPIVACAINE 5MG/ML 20ML VIAL ONE; -TRIAMCINOLONE ACETONIDE 40 MG/ML 1 ML VIAL ONE
[2023-12-28 11:17] VITALS: RESP 16; TEMP 97.3
[2023-12-28] MEDS: ACETAMINOPHEN TAB 500 MG TAB PO PRN (11:31)
[2023-12-28] MEDS ORDERED: IOPAMIDOL M200 10 ML VIAL ONE (11:38)
[2023-12-28] MEDS ORDERED: ROPIVACAINE 5MG/ML 20ML VIAL ONE (11:38)
[2023-12-28] MEDS ORDERED: TRIAMCINOLONE ACETONIDE 40 MG/ML 1 ML VIAL ONE (11:38)
--- NOTE | 2023-12-28 11:50 | P.PCN ---
Date of Procedure: 12/28/23 Surgeon: Denise Aguilar Pathology: none sent Condition: stable Disposition: PACU Description of Procedure: POSTOPERATIVE DIAGNOSIS: 1-Lumbar radiculopathy. 2-Lumbar Degenerative Disc Diseases PROCEDURE 1. Lumbar epidural steroid injection under fluoroscopic guidance at the L3-4 level the left paramedian approach. 2. Lumbar epidurogram. ANESTHESIA: Local only with 1% lidocaine EBL: Minimal PROCEDURE INDICATION: The patient with low back pain and radiculitis symptoms unresponsive to conservative treatment. Fluoroscopy was used to optimize visualization of the needle placement and to maximize safety. PROCEDURE DESCRIPTION / TECHNIQUE: The patient was seen and identified in the preoperative area. Risks, benefits, complications including but not limited to infections ,bleeding ,allergic reaction to the medications ,nerve damage and not complete pain relief , and alternatives were discussed with the patient. The patient agreed to proceed with the procedure and signed the consent. IV was started, and vital signs were stable. Patient was taken to the OR and time out was completed. The patient was placed in the prone position on procedure table and a pillow was placed under the abdomen to reduce lumbar lordosis. The lumbosacral area was prepped and draped in the usual sterile fashion with ChloraPrep.Patient was closely monitored during the procedure. Conscious sedation was used during the procedure to decrease patients anxiety. Vital signs were monitered during the entire procedure. Using anterior-posterior fluoroscopy, the L3-4 interlaminar space was identified and the skin over this site was marked and then infiltrated with 1% lidocaine subcutaneously. Subsequently, a 20-gauge Tuohy epidural needle was inserted and advanced toward the epidural space using the Loss of resistance to air technique and guided by AP and lateral fluoroscopy. The correct needle position in the epidural space was verified with the injection of 1 mL of the water soluble contrast dye Omnipaque 180 contrast and observing an excellent epidurogram with the epidural spread of the dye, after negative aspiration for blood and CSF and in the absence of paresthesias. Again after negative aspiration, a 6 ml mixture containing 80 mg of Kenalog and 3 ml of preservative free Normal Saline, and 1 ml of preservative free Ropivacaine 0.5% solution was injected and a washout of epidurogram was seen. Needle was withdrawn intact, skin was cleansed, and bandages were applied. patient tolerated procedure well and was transferred to PACU in stable condition. A copy of the needle placement picture was saved to the fluoroscopy machine. COMPLICATIONS: None
[2023-12-28] MEDS: IV FLUID CONTINUATION 1,000 ML IV ONE (11:58)
[2023-12-28 13:09] VITALS: BP 129/67; PULSE 78
--- NOTE | 2024-01-13 10:36 | FL ---
EXAMINATION TYPE: FL guided pain mgmt statistic DATE OF EXAM: 12/28/2023 11:56 AM COMPARISON: Pre Operative Images if available both CT/MRI or plain film CLINICAL INDICATION: Male, 68 years old with history of M54.16; TECHNIQUE: FL guided pain mgmt statistic, multiple fluoroscopic images provided for procedure. Total fluoroscopy time: 10.4 seconds Total submitted images to PACS: 2 DAP: [id number] mGym2 Gycm2 uGym2 cGycm2 or equivalent. FINDINGS: Fluoroscopic images during injection for pain management demonstrate multilevel degeneration changes throughout the spine. No evidence for fracture. No acute process identified. IMPRESSION: 1. No evidence for intraoperative complication. 2. Please see the operative/procedural note for further details. [facility], , 01/13/2024 10:33 AM
== END 2023-12-28 12:28 | disposition home or self-care (01) ==
LOC: ORPAIN 09:53
PROVIDERS: ATTEND Anesthesiology
DX: M51.16 Intervertebral disc disorders with radiculopathy, lumbar region
CPT/HCPCS: 62323

== ENCOUNTER → 2024-01-12 | Outpatient (CLI) | payer MEDICARE ==
[2024-01-12 13:05] VITALS: BP 123/69; PULSE 88; RESP 16
--- NOTE | 2024-01-12 14:42 | P.PAINPG ---
PQRS Measure Charge Sheet Comment: HISTORY OF PRESENT ILLNESS: A 68 yr old male presents today w severe and chronic LBP > 6 mo secondary to radiculopathy, spondylosis and facet arthropathy without myelopathy for evaluation s/p L paramedian FRANKY L3-L4 #1. Pt states he experienced 0% relief s/p procedure. Pt states pain level is provoked at 7 /10 in intensity, constant, localized in the lumbar spine, predominantly axial, sharp in character w occasional shooting pain towards BLEs. Pain is provoked by weight bearing activity. Pain is alleviated by PT x 6 wks which ended in 2022, physician guided home exercises/ stretches every other day since Apr 2023, medications, topical, use of a cane for ambulatory assistance, repositioning and rest . Interventional procedures include FRANKY L3-L4 x1, L paramedian FRANKY L3-L4 x1 (Dec 2023) Medications include ASA, Ibu, Tyl REVIEW OF ORGAN SYSTEMS: CONSTITUTIONAL: No fevers or chills. No recent weight loss. NEUROLOGICAL: + numbness and tingling along the distal extremities. No seizure disorders or headaches. MUSCULOSKELETAL: + pain PSYCHIATRIC: Denies current depression or suicidal thoughts. Physical Examinations : Constitutional : Cooperative , not in acute distress . Neurologic : Cranial nerve II to XII intact. No focal neurological deficits. Psychiatric : alert & oriented x 3. Matching mood & appropriate affect. Judgment & insight intact. Musculoskeletal : Cervical Spine Motor strength in the deltoid and biceps: Normal right side. Normal Left side Motor strength biceps and the wrist extensors: Normal right side . Normal left side Motor strength in the triceps muscle: Normal right side. Normal left side Deep tendon reflexes: Normal at the biceps. Normal at Brachioradialis. Normal at triceps Vertebral body tenderness to deep palpation over Cervical facet loading test: positive bilaterally Spurling test: positive bilaterally Neck distraction test: positive bilaterally Frank sign: positive bilaterally Lumbar spine Motor strength lower extremities ,thigh and legs 5/5 Right side , 5/5 Left side Deep tendon reflexes : Normal Knee Jerk. Normal Ankle Jerk Vertebral body tenderness over L4 Triplett Test positive BL L3-L4 Lumbar facet Loading Test: positive Right / positive Left Range of motion of the lumbar spine Flexion 30 degrees, extension 10 degrees Straight Leg Raise test: Left/ Right positive at degrees Lizet test: positive right / positive left. Severe tenderness over the Sacroiliac joint on the Right / Left sides Gaenslen test: positive bilaterally Seated flexion test: positive bilaterally. Sacral spine : Severe tenderness over the Sacroiliac joint: right side / left side Range of motion: Flexion of the lumbar spine <60 degrees Range of motion: Extension of the lumbar spine <20 degrees Gaenslen's Test positive Lizet test: positive right side / left side Thigh Thrust Test Sacral Thrust Test Imaging: MRI non contrast of the lumbar spine from 07/14/23 reviewed Assessment/ Plan : L4-L5 severe spinal stenosis secondary to 11mm synovial cyst, radiculopathy, spondylosis and facet arthropathy without myelopathy Recommendation of follow up w orthopedic surgeon to explore additional treatment options. Pt stated he is established w Dr Burk. All questions answered. I have spent greater than 30 minutes on patient care today. Dr Donaldson was available by phone for the evaluation of this patient. The time was used to review the medical records including relevant urine studies and Prescription history (MAPs), review of the available imaging, evaluation and examination of the patient, coordination of care with the medical staff and if applicable referring physicians, as well as creation of the medical record - Pain Location Bilateral Lower Back Non-Pharmacological Interventions: Heat, Inactivity, Position/Reposition, Sitting Pharmacological Interventions: Epidural, PRN Medication, Topical Medication PQRS Narrative: Smoking Status Former smoker Hx Alcohol Use (MH) No Home Medications: Ambulatory Orders Albuterol Nebulized [Ventolin Nebulized] 2.5 mg INHALATION RT-Q4H PRN 06/29/18 Aspirin EC [Ecotrin Low Dose] 81 mg PO QAM 06/29/18 Cetirizine HCl [Zyrtec] 10 mg PO QAM 06/29/18 Omeprazole 40 mg PO BID 06/29/18 Sertraline HCl [Zoloft] 50 mg PO QAM 06/29/18 Cholecalciferol [Vitamin D3 (25 Mcg = 1000 Iu)] 2,000 unit PO QAM 09/13/18 Ascorbic Acid [Vitamin C] 250 mg PO DAILY 02/11/20 Ferrous Sulfate [Iron (65 MG Elemental)] 325 mg PO QAM 02/11/20 Pramipexole [Mirapex] 0.25 mg PO BID@1600,2100 02/11/20 Cyanocobalamin (Vitamin B-12) [Vitamin B-12] 1,000 mcg PO QAM 04/11/20 Gabapentin [Neurontin] 100 mg PO HS 09/03/23 Magnesium 250 mg PO QAM 09/03/23 diazePAM [Valium] 5 mg PO DAILY PRN 1 Days #2 tab 09/22/23 HYDROcodone/APAP 7.5-325MG [Wells 7.5-325] 1 tab PO Q4H PRN 3 Days #18 tab 01/12/24 Controlled Substance Measures - Controlled Substance Measures Is patient prescribed a controlled substance at discharge?: Yes When asked, does pt state using other controlled substances?: Yes If prescribed controlled substance>3 days was MAPS reviewed?: Prescribed <3 Days
== END ==
LOC: PNWHC3 12:30
PROVIDERS: ATTEND Specialist
DX: M54.16 Radiculopathy, lumbar region
CPT/HCPCS: 99211

== ENCOUNTER → 2024-02-04 | Outpatient (CLI) | payer MEDICARE ==
[2024-02-04 09:14] LABS: INR 0.9 (<1.2); Partial Thromboplastin Time 23.8 sec (22.0-30.0); Prothrombin Time 9.9 sec (10.0-12.5)
--- NOTE | 2024-02-04 09:28 | XR ---
EXAMINATION TYPE: XR chest 2V DATE OF EXAM: 02/04/2024 COMPARISON: 06/29/2020 HISTORY: 68-year-old male Z01.818, presurgical evaluation TECHNIQUE: Frontal and lateral views FINDINGS: Heart normal size. Aorta and pulmonary vasculature within normal limits. There is hyperinflation. Tamy dging anterior endplate spur at the mid thoracic spine. No consolidation or pleural effusion. Minimal apical pleural parenchymal scarring. IMPRESSION: COPD. No acute process seen. [facility], , 02/04/2024 8:58 AM
[2024-02-04 15:11] LABS: Basophils # (A) 0.05 X 10*3/uL (0.00-0.10); Basophils % (A) 0.9 %; Eosinophils # (A) 0.09 X 10*3/uL (0.04-0.35); Eosinophils % (A) 1.6 %; HCT 46.9 % (39.6-50.0); HGB 14.9 g/dL (13.0-17.0); Lymphocytes # (A) 1.43 X 10*3/uL (0.90-5.00); Lymphocytes % (A) 25.6 %; MCH 29.9 pg (27.0-32.0); MCHC 31.8 g/dL (32.0-37.0); MCV 94.2 FL (80.0-97.0); Mean Platelet Volume 10.4 FL (9.5-12.2); Monocytes % (A) 7.2 %; NRBC Per 100 WBC 0 X 10*3/uL (0.00-0.01); Neutrophils % (A) 64.5 %; Platelet Count 284 X 10*3/uL (140-440); RBC 4.98 X 10*6/uL (4.40-5.60); RDW 13.8 % (11.5-14.5); WBC 5.58 X 10*3/uL (4.50-10.00)
[2024-02-04 15:18] LABS: Appearance,Urine Cloudy (Clear); Bilirubin,Urine Negative (Negative); Blood,Urine Negative (Negative); Color,Urine Dark Yellow (Yellow); Ketones,Urine Trace (Negative); Nitrite,Urine Negative (Negative); Specific Gravity,Urine 1.023 (1.001-1.030)
[2024-02-04 15:23] LABS: BUN/Creat Ratio 14.25 Ratio (12.00-20.00); Blood Urea Nitrogen 11.4 mg/dL (9.0-27.0); Calcium 9.5 mg/dL (8.7-10.3); Carbon Dioxide 29.6 mmol/L (21.6-31.8); Chloride 103 mmol/L (96-109); Glucose 109 mg/dL (70-110); Potassium 4.5 mmol/L (3.5-5.5); Sodium 143 mmol/L (135-145)
[2024-02-04 22:38] LABS: Bacteria,Urine None Seen (None Seen); Calcium Oxalate Crystals,Urine Present (None Seen)
== END | disposition home or self-care (01) ==
LOC: LABPAT 08:04
PROVIDERS: ATTEND Orthopaedic Surgery Orthopaedic Surgery of the Spine
DX: M48.061 Spinal stenosis, lumbar region without neurogenic claudication (principal); Z22.322 Carrier or suspected carrier of Methicillin resistant Staphylococcus aureus
CPT/HCPCS: 71046; 80048; 81001; 85025; 85610; 85730; 87070

== ENCOUNTER → 2024-02-18 | Outpatient (CLI) | payer MEDICARE | END | disposition home or self-care (01) | LOC: LABPAT 08:02 | PROVIDERS: ATTEND Orthopaedic Surgery Orthopaedic Surgery of the Spine | DX: Z01.812 Encounter for preprocedural laboratory examination (principal) | CPT/HCPCS: 86850; 86900; 86901 ==

== ENCOUNTER → 2024-05-31 | Day surgery (SDC) | payer MEDICARE, OTHER ==
[~2024-05-31] MED LIST changes: -LACTATED RINGERS 1,000 ML IV SCH; +LIDOCAINE 2% (PF) 20 MG/ML 5 ML VIAL ONE; +PROPOFOL 10 MG/ML 20 ML VIAL IV ONE
[2024-05-31] MEDS: IV FLUID CONTINUATION 1,000 ML IV ONE (11:21)
[2024-05-31 11:27] VITALS: TEMP 97.1
[2024-05-31] MEDS: LACTATED RINGERS 1,000 ML IV SCH (11:37)
--- NOTE | 2024-05-31 12:27 | P.PCN ---
Date of Procedure: 05/31/24 Procedure(s) Performed: BRIEF HISTORY: Patient is a 68-year-old, pleasant, white man scheduled for an endoscopy as a part of evaluation of longstanding history of GERD and intermittent dysphagia to solids.. PROCEDURE PERFORMED: Esophagogastroduodenoscopy with biopsy. PREOPERATIVE DIAGNOSIS: Longstanding history of GERD intermittent dysphagia to solids. IV sedation per anesthesia. PROCEDURE: After informed consent was obtained, the patient was brought into the endoscopy unit. IV sedation was administered by Anesthesia under continuous monitoring. Initially the Olympus GIF-140 video endoscope was inserted into the mouth. Esophagus intubated without any difficulty. It was gradually advanced int o the stomach and duodenum and carefully examined. The bulb and the second part of the duodenum appeared normal. The scope at this time was withdrawn to the stomach, adequately insufflated with air, and upon careful examination, mucosa of the antrum, body, cardia and the fundus appeared normal. The scope was then withdrawn into the esophagus. Small hiatal hernia noted. The GE junction was located at 39 cm from the incisors. There was a short segment of Steele's esophagus extending 3 mm proximal to the GE junction that was biopsied. The rest of the esophagus appeared normal. There were no erosions or ulcerations seen and the patient tolerated the procedure well. IMPRESSION: 1. Short segment Steele's esophagus. 2. Small hiatal hernia. 3. No evidence of esophageal stricture RECOMMENDATIONS: The findings of this examination were discussed with the patient as well as his family. He was advised to continue with Prilosec 20 mg twice daily and follow antireflux measures..
[2024-05-31 12:32] VITALS: RESP 16
[2024-05-31 12:46] VITALS: BP 118/69; PULSE 81
== END ==
LOC: ORWHC2ENDO 10:58
PROVIDERS: ATTEND Internal Medicine Gastroenterology
DX: K22.70 Barrett's esophagus without dysplasia (principal); K21.9 Gastro-esophageal reflux disease without esophagitis; K44.9 Diaphragmatic hernia without obstruction or gangrene; E78.5 Hyperlipidemia, unspecified; J44.9 Chronic obstructive pulmonary disease, unspecified; M19.90 Unspecified osteoarthritis, unspecified site; H91.90 Unspecified hearing loss, unspecified ear; F17.210 Nicotine dependence, cigarettes, uncomplicated; Z79.1 Long term (current) use of non-steroidal anti-inflammatories (NSAID); Z79.899 Other long term (current) drug therapy; Z79.51 Long term (current) use of inhaled steroids
CPT/HCPCS: 88305; 43239; J2704; J2003

== ENCOUNTER → 2024-06-08 | Outpatient (CLI) | payer OTHER | END | disposition home or self-care (01) | LOC: LABPAT 09:29 | PROVIDERS: ATTEND Orthopaedic Surgery | DX: Z01.812 Encounter for preprocedural laboratory examination (principal); Z22.322 Carrier or suspected carrier of Methicillin resistant Staphylococcus aureus; M48.061 Spinal stenosis, lumbar region without neurogenic claudication | CPT/HCPCS: 86850; 86900; 86901; 87070 ==

== ENCOUNTER 2024-06-12 07:45 | Day surgery (SDC) | payer OTHER ==
--- NOTE | 2024-06-11 12:08 | P.HPOR ---
History of Present Illness H&P Date: 06/08/24 .D:Date: 06/08/24 : 01:27pm .T:Title: *PRE-OP H1 [facility] [address] [address]| PROVIDER: RICHY MENDES DO CLINICAL SUMMARY: *Mr. Harshil Butcher, a 68-year-old retired male, presented to [facility] on 06/08/24 for pre-operative evaluation prior to his scheduled L4-5 LEFT MINIMALLY INVASIVE DECOMPRESSION WITH POSTEROLATERAL AND INTERBODY FUSION. Patient reports constant low back pain radiating to the left lower extremity (VAS 3/10) with associated weakness, numbness, tingling, and balance difficulties. Physical examination revealed positive straight leg raise bilaterally, motor weakness (4/5) throughout the left lower extremity, diminished reflexes (1+) at the left patellar and Achilles tendons, and dermatomal sensory deficits in the L4-5 distribution. Imaging studies demonstrate severe L4-5 spondylosis with stenosis and an 11mm left facet joint synovial cyst impinging on the thecal sac. Previous conservative treatments including medications (Lidocaine patches, Tylenol, Gabapentin, Aspirin, Prednisone), injections, physical therapy, and home exercise program have failed to provide adequate relief. Surgical intervention was recommended with activity restrictions (no lifting/bending/twisting >20lbs) and continued home exercises until surgery. Patient to follow up with PCP for surgical clearance prior to procedure. DEMOGRAPHICS: Age: 68 year Height: 5'8" Weight: 163 lbs BP:122/70 BMI: 24.78 kg/m2 Occupation: *Retired CC: *lumbar pain VAS: * 3 HISTORY: Mr. Butcher presents to the office today, 06/08/24, for *a pre-operative appointment preceding his L4-5 LEFT MINIMALLY INVASIVE DECOMPRESSION WITH POSTEROLATERAL AND INTERBODY FUSION. Patient reports a constant pain across the low back that radiates into the left lower extremity, associated with weakness, numbness, and tingling. Patient states that he has noticed balance issues and is unable to bear weight of the left lower extremity. Patient states that his symptoms are exacerbated with prolonged ambulation, sitting, changing position from sitting to standing, and bending. Patient is currently using Lidocaine patches and taking Tylenol, Gabapentin, and Aspirin without resolution of his symptoms. Patient recently began of course of Prednisone 20mg which is providing some relief although not significant. Patient ambulates independently. * Patient denies any f/c/sob/cp, perineal numbness or tingling, bowel, or bladder incontinence/retention. * The patients past social, medical, family, surgical history, as well as review of systems, have been reviewed. Please refer to the History and Physical form that has been scanned into our electronic medical record system. * 16 points review of systems completed and as stated in HPI, all other systems reviewed are negative. PAST TREATMENTS: PAST IMAGING: -YES, xray and MRI - TRAUMA RELATED: -NO - WORK RELATED: -NO - PT IN LAST 6 MONTHS: -NO, but has trialed several times over the past 2 years with continued reoccurrence of his symptoms. - PHYSICIAN DIRECTED HOME EXERCISE PROGRAM: -YES, no relief - ACTIVITY MODIFICATION: -YES - MEDICATIONS: -YES. Lidocaine patches, TYlenol, Gabapentin, Aspirin. Currently trialing Prednisone 20mg course - ALTERNATIVE INTERVENTIONS (CHIROPRACTIC, ACCUPUNCTURE, MASSAGE, RICE): -YES - BRACING: -NO - INJECTIONS (FRANKY, TF, RFA): -YES, several injections, last injection February 2024 without relief MEDICAL HISTORY: Past Medical History: REVIEWED STATED IN CHART Past Surgical History: REVIEWED STATED IN CHART Social History: REVIEWED STATED IN CHART SMOKING: Never smoker ETOH: None SUBSTANCES: None Family History: REVIEWED STATED IN CHART P1 Current Medications: Rx: see scanned list , Ref: 0 Rx: acetaminophen 325 mg tablet Ref: 0 Instructions: take 2 tablets (650 mg) by oral route every 6 hours as needed Rx: albuterol sulfate 2.5 mg/3 mL (0.083 %) solution for nebulization Ref: 0 Instructions: inhale 3 milliliters (2.5 mg) by nebulization route 3 times per day Rx: ascorbic acid , Ref: 0 Rx: aspirin 81 mg tablet,delayed release Ref: 0 Instructions: take 1 tablet (81 mg) by oral route once daily Rx: cetirizine 10 mg capsule Ref: 0 Rx: chloecslcif , Ref: 0 Instructions: 50 mg a day Rx: ezetimibe 10 mg tablet Ref: 0 Instructions: take 1 tablet (10 mg) by oral route once daily Rx: ferrous sulfate 325 mg (65 mg iron) tablet Ref: 0 Instructions: take 1 tablet (325 mg) by oral route once daily Rx: gabapentin 100 mg capsule Ref: 0 Instructions: take 1 capsule (100 mg) by oral route at bedtime Rx: magnesium 250 mg tablet Ref: 0 Rx: omeprazole 40 mg capsule,delayed release Ref: 0 Instructions: take 1 capsule (40 mg) by oral route once daily before a meal Rx: pramipexole Ref: 0 Rx: predniSONE 20 mg tablet Ref: 0 Instructions: take 1 tablet (20 mg) by oral route BID Rx: sertraline 100 mg tablet Ref: 0 Instructions: take 1/2 tablet (100 mg) by oral route once daily Rx: lidocaine 5 % topical patch Ref: 0 Instructions: apply 1 patch by topical route once daily (May wear up to 12hours.) P1 PHYSICAL EXAM: General: AOX3, NAD, Well hydrate, well nourished, in no acute distress HEENT: No lumps or masses Extremities: No color changes, no pooling INTEGUMENT: Appearance: Normal color and turgor Surgical Incisions: N/A Hairy Patches: ABSENT Dorsal Skin Dimples: Normal [employer] spots: ABSENT PALPATION: TTP Midline: NO Paracervical: NO Parathoracic: NO Paralumbar: YES SIJ TESTING (Rikki's, FABER4, Compression, Distraction, Thigh Thrust, Hip Thrust): TESTED * POSITIVE FINDINGS: NEGATIVE FINDINGS: Rikki's, FABER4, Compression, Distraction, Thigh Thrust, Hip Thrust POSTURAL BALANCE: Coronal: BALANCED Sagittal: BALANCED Shoulder height: LEVEL Pelvic Girdle: LEVEL ROM AND APPEARANCE: Neck: UNRESTRICTED Lumbar: RESTRICTED with pain Shoulders: Symmetrical Hips: Symmetrical Knees: Symmetrical Hands: Symmetrical Feet: Symmetrical VASCULAR STATUS: PALPABLE PULSES B/L UE AND LE 2/4 RAD/ULNAR/DP/PT Edema: NONE NEUROLOGICAL EXAMINATION: Mental Status: Awake, alert, fully oriented with normal attention, concentration, and memory. Fluent appropriate speech. CRANIAL NERVES: I: Olfactory not assessed. II: Visual acuity normal, no visual field deficit noted with confrontation. III, IV: Normal pupillary reflexes & intact extraocular movements without nystagmus. V, : Intact symmetrical facial sensation. VII: Intact symmetrical facial motor movement: Hearing intact. IX, X: Intact gag, swallow, & normal voice. XI: Sternocleidomastoid, trapezius function intact. XII: Tongue midline with normal movements. TENSIONING: * L'HERMITTE'S SIG:NEG SPURLUNG'S SIGN:NEG UPPER EXTREMITY TENSIONING SIGNS: NEG CUBITAL TUNNEL COMPRESSION:NEG TINELS AT WRIST:NEG STRAIGHT LEG RAISE:POS CONTRALATERAL STRAIGHT LEG RAISE: POS MOTOR EXAM (0-5/5, NT) Muscle appearance: Symmetrical, without signs of atrophy or dystrophy UPPER EXTREMITY RIGHT LEFT Shoulder Abduction 5 5 Biceps 5 5 Triceps 5 5 Wrist Extension 5 5 Hand Intrinsics 5 5 Commercial Artist Lettering 5 5 LOWER EXTREMITY RIGHT LEFT Hip Flexion 5 4 Knee Extension 5 4 Knee Flexion 5 4 Dorsiflexion 5 4 Plantarflexion 5 4 EHL 5 4 FHL 5 4 REFLEXES (0-4/2, NT): RIGHT LEFT Bicep 2 2 Brachioradialis 2 2 Triceps 2 2 Patellar 2 1 Achilles 2 1 PATHOLOGICAL REFLEXES: RIGHT LEFT VO'S ABSENT ABSENT CLONUS ABSENT ABSENT BABINSKI ABSENT ABSENT RECTAL TONE: INTACT/NT SENSATION (0-4, NT): Sensation intact to LT and Pain * C5-T1 distribution BUE * L2-S2 distribution BLE *Exceptions below* DERMATOMAL DEFICIT/RADICULAR PATTERN: L4-5 LLE GAIT AND FUNCTIONAL EVALUATION: AMBULATORY AID NONE ROMBERG'S TEST INTACT HAND AND FINGER DEXTERITY INTACT YES DYSDIADOCHOKINESIA EXAM NEG B/L YES TOE/HEEL WALK INTACT WITH GOOD BALANCE NO SQUAT AND RISE W/O ASSISTANCE TO 60 DEG KNEE FLEXION NO SINGLE LEG STANCE NOT ABLE TREN[place]G NEG IMAGING: XRay Lumbar Multiview (AP, Lateral, Flexion, Extension) with AP pelvis; 5 [facility]aken at [facility] 05/01/24: Moderate to severe multilevel spondylitic and degenerative changes with mild degenerative scoliosis demonstrated. There is multilevel diminished disc hei ght. Vertebral body heights are preserved with opposing endplate osteophytosis. L4-S1 facet arthropathy is present. No acute osseous abnormalities. Pelvis: The visualized sacrum and iliac wings are within normal limits. MRI scancompleted at Outside facility from 07/14/23 of [facility]: Impression: 1. Degenerative change within the lumbar spine most significant at L4-L5 with severe stenosis of the spinal canal. 11 mm left facet joint synovial cyst is also noted at this level that impinges on the thecal sac. 2.Infrarenal abdominal ectasia IMPRESSION: It was my pleasure to have seen and examined Harshil. I reviewed the patient's clinical syndrome, physical findings, and imaging studies during the appointment today. It is my impression that the patient has a diagnosis of. 1.L4-5 spondylosis with stenosis, severe 2.Left lower extremity radiculopathy 3.Left lower extremity weakness 4. Low back pain PLAN: DISCUSSION: -I have discussed with the patient their clinical signs and symptoms, imaging, and treatment options. We have discussed risks, benefits, potential outcomes and natural course as pertains top their issues. The patient understands and would like to proceed as follows below: SURGICAL RECOMMENDATION -L4-5 MINIMALLY INVASIVE DECOMPRESSION WITH POSTEROLATERAL AND INTERBODY FUSION APPROACH: LEFT PRONE THERAPIES -Cont. with home exercises and home PT exercises as able -Cont. with Heat/Ice as warranted -Cont. with supplementation Vit D, Vit C, Ca2+, High protein diet -OK for massage or other alternative treatment modalities as able. If it exacerbates your sx do not continue ACTIVITY -NO LIFTING BENDING TWISTING PUSHING PULLING GREATER THAN -20lbs -Recommend walking up to 30 min 2x daily on a flat easy surface with good support. MEDICATIONS -Take as directed -Cont. home medications as directed by your PCP. Check with your PCP for any medication interactions or issues if needed. IMAGING -N/A INJECTIONS -N/A Spine Surgery Risk Review Mr. Butcher is presenting for evaluation of lumbar pain. It was my pleasure to have seen and examined Mr. Butcher. In our visit today we have had a chance to go over subjective complaints, physical examination findings and treatments including the natural course history without intervention and various interventional options. The patients imaging demonstrates: XRay Lumbar Multiview (AP, Lateral, Flexion, Extension) with AP pelvis; 5 viewstaken at [facility] 05/01/24: Moderate to severe multilevel spondylitic and degenerative changes with mild degenerative scoliosis demonstrated. There is multilevel diminished disc height. Vertebral body heights are preserved with opposing endplate osteophytosis. L4-S1 facet arthropathy is present. No acute osseous abnormalities. Pelvis: The visualized sacrum and iliac wings are within normal limits. MRI scancompleted at Outside facility from 07/14/23 of [facility]: Impression: 1. Degenerative change within the lumbar spine most significant at L4-L5 with severe stenosis of the spinal canal. 11 mm left facet joint synovial cyst is also noted at this level that impinges on the thecal sac. 2.Infrarenal abdominal ectasia On physical exam, Mr. Butcher demonstrates: Patient reports a constant pain across the low back that radiates into the left lower extremity, associated with weakness, numbness, and tingling. Patient states that he has noticed balance issues and is unable to bear weight of the left lower extremity. Patient states that his symptoms are exacerbated with prolonged ambulation, sitting, changing position from sitting to standing, and bending. Patient is currently using Lidocaine patches and taking Tylenol, Gabapentin, and Aspirin without resolution of his symptoms. Patient recently began of course of Prednisone 20mg which is providing some relief although not significant. Patient ambulates independently. I have explained to the patient that as their condition progresses it will cause further neurological deficits and eventual paralysis. Based on the patients imaging, physical exam, and the rapid progression and disabling nature of their symptoms, at this time I recommend surgery in the form of a:L4-5 MINIMALLY INVASIVE DECOMPRESSION WITH POSTEROLATERAL AND INTERBODY FUSION LEFT. I discussed the risk and benefits of this procedure at length with Mr. Butcher. The patient [significant other] agreed to considered pursuing the procedure abovementioned. Prior to surgery, she should follow up with her PCP (Cardio, ID, IM etc) for clearance. Questions were invited and answered, and the patient wishes to proceed as outlined below. Currently, I am recommendin.L4-5 MINIMALLY INVASIVE DECOMPRESSION WITH POSTEROLATERAL AND INTERBODY FUSION 2.Follow up with PCP for surgical clearance 3.Review of surgical risks and benefits as well as an educational packet on the proposed surgical procedure. Risks: All surgical procedures come with inherent risks, including those related to positioning, anesthesia, intraoperative findings, and postoperative complications. It is important to understand that surgery does not come with any guarantee of a successful outcome as complications and adverse events are always possible. The patient was given a handout in office today discussing the surgical procedure and risks associated with the intervention, both of which were discussed with the patient. These risks include but are not limited to the following: * Experiencing same, different or even worse symptoms in back, neck, arms, or legs compared to before surgery. Requiring further surgery or other forms of treatment presently or at some time in the future at same or other levels of the intended spine surgery. On an extreme but fortunately relatively rare basis severe complication such as blindness, stroke, heart attack, temporary and/or permanent nerve injury, paralysis, coma, or may occur, sometimes without known explanation. Surgical complications may include but are not limited to risk of infection, fluid accumulation in the surgical dissection site, including a seroma or hematoma, that requires additional surgery, wound drainage, bleeding, new numbness or weakness, vision changes/loss, spinal fluid leakage, non-healing and/or infected incision, headaches, difficulty or inability to swallow, hoarseness, hemopneumothorax, pneumothorax, impotence, retrograde ejaculation, vaginal dryness; injury to nerves, spinal cord, blood vessels, lymphatics or other vital organs (i.e., bowel injury, injury to the great vessels); heterotopic bone formation; complications related to the hardware such as screws, rods, cages including misplaced hardware, device failure, instrumentation at the wrong spine level, hardware fracture/breakage, or hardware loosening; vertebral failure of the spinal column above or below the newly placed hardware; retained surgical instrumentations or devices and the need for further surgery. * Medical risks of the planned spine surgery include but are not limited to generalized Infections to the whole body or local areas outside of the surgical site (sepsis), heart attack, bleeding, anaphylaxis, meningitis, seizure, epilepsy, hearing loss, burn tamez, laceration of the head or other a reas of the body, bruising, hypersensitivity of the skin, bladder over distension; allergic reaction; shoulder injury related to positioning; fat, blood and air clots to other areas of the body like heart, lungs, brain; failure of internal organs such as lungs, kidneys, liver and excessive bleeding. If blood transfusions are necessary, note that transfusions may cause intolerance reactions such as anaphylaxis or other complex reactions. Despite best efforts, the results of spine surgery might not heal in terms of bone, soft tissues such as skin, fascia, ligaments, and joints. Additionally, i n order to achieve best possible results, spine surgery may be carried out beyond the initially planned levels and involve decompression, fusion including insertion of hardware at levels other than the original intended area of surgical interest change some portions of the procedure in order to ensure the best possible outcomes. With spine surgery and spinal fusion, there are different off label uses of instrumentation (devices, implants and hardware) as well as biological substances (bone morphogenic proteins, demineralized bone matrix) as well as using extra bone from allograft sources (i.e. cadaver bone) or autograft (iliac crest bone, ribs, or the spine itself). The patient has been given information about these practices and their inherent risks and benefits. [facility] is an educational center that serves as a training facility for neurosurgical and orthopedic PHILOSOPHY SPECIALIST and Nursing students. Physician assistants are medically trained surgical providers who function in the outpatient, inpatient, and operating room setting under the direct supervision of the attending surgeon. [facility] has multiple operating rooms with single and overlapping rooms running daily. They currently function under the required guidelines as produced by the [facility] [employer] Committee with regards to the overlapping rooms and will continue to comply with changes to this policy as they occur. The requirements include and are complied with as follows: (1) the critical portions of the overlapping rooms will not occur at the same time, (2) the attending physician will be physically present during the critical portions of the procedure and immediately available during the entire case, and (3) a back-up attending is designated should the primary attending not be immediately av ailable. The patient has had a chance to review all the listed information, has been given print outs detailing this information, and has had all his/her questions answered to their satisfaction. It was my pleasure to have seen and examined Mr. Butcher. In our visit today we have had a chance to go over my understanding of our patient's current condition, the natural course history without intervention and various interventional options. Questions were invited and answered, and the patient wishes to proceed as outlined above. I have seen and examined the patient for 25 minutes and we have spent more than 50% of the time in repeat and detailed counseling about the patient's condition, its natural course history with out and as much as can be predicted with surgery and re-review of various surgical treatment options. In conclusion, Mr. Butcher requested we proceed with the above suggested surgery and are willing to accept risks and limitations of the suggested surgery as nature of the disease process and our best attempts at treatment for the condition. MEDICAL NECESSITY: Based on objective clinical findings including MRI evidence of severe L4-L5 spinal stenosis with an 11mm left facet joint synovial cyst impinging on the thecal sac, combined with progressive neurological deficits including left lower extremity weakness (4/5), positive straight leg raise testing, decreased reflexes, and documented gait instability, surgical intervention is deemed medically necessary. The patient has failed an appropriate course of conservative management including physical therapy, oral medications (Tylenol, Gabapentin, Aspirin), Lidocaine patches, and oral steroids. The patient's symptoms are significantly impacting their quality of life and activities of daily living, with a current VAS pain score of 7/10, and there is clear risk of further neurological deterioration without surgical intervention. SURGICAL RATIONALE: The decision for L4-5 minimally invasive decompression with posterolateral and interbody fusion is based on the presence of mechanical instability, severe central and foraminal stenosis, and the symptomatic facet joint synovial cyst at L4-L5. The fusion component is necessary due to the extent of decompression required to adequately address the stenosis and remove the synovial cyst, which will likely compromise facet joint integrity. The minimally invasive approach is chosen to minimize tissue trauma, reduce blood loss, and potentially expedite post-operative recovery while achieving the necessary surgical objectives of neural decompression and spinal stabilization. FOLLOW UP: *POST-OP PLAN AT NEXT VISIT: * RECHECK PATIENT EDUCATION: Medications Reviewed: YES In our visit today Mr. Butcher and I have had a chance to go over my understanding of the patient's current condition, the natural course history without intervention and various interventional options. Questions were invited and answered, and the patient wishes to proceed as outlined above. I will be sure to keep you updated after Mr. Butcher returns here for further follow-up. Thank you again for your referral. Please do not hesitate to contact me if you have any further questions. Signed and authenticated by: Richy Solitario [facility] [address] [place] [id number] . This message is confidential, intended only for the named recipient(s) and may contain information that is privileged or exempt from disclosure under applicable law. If you are not the intended recipient(s), you are notified that the dissemination, distribution or copying of this information is prohibited. If you received this message in error, please notify the sender then delete this message. Past Medical History Past Medical History: COPD, GERD/Reflux, Hearing Disorder / Deafness, Hyperlipidemia, Osteoarthritis (OA), Sleep Apnea/CPAP/BIPAP Additional Past Medical History / Comment(s): Back pain, spinal spondylosis/spinal cyst/DDD, LT EAR DEAF-READS LIPS-wears [place] hearing aids, CARPAL TUNNEL [place] hands, unable to tolerate statins/muscle pain, no CPAP. History of Any Multi-Drug Resistant Organisms: None Reported Past Surgical History: Heart Catheterization, Orthopedic Surgery Additional Past Surgical History / Comment(s): rt carpal tunnel sx, EGD, colonoscopies Past Anesthesia/Blood Transfusion Reactions: No Reported Reaction Additional Past Anesthesia/Blood Transfusion Reaction / Comment(s): son had hard time coming out of anesthesia Smoking Status: Current every day smoker - Past Family History Sister(s) Family Medical History: Cancer Father Family Medical History: Myocardial Infarction (MD) Mother Family Medical History: Cancer, Hypertension, Liver Disease Additional Family Medical History / Comment(s): tb in 1967, breast cancer Medications and Allergies Home Medications Medication Instructions Recorded Confirmed Type Albuterol Nebulized [Ventolin 2.5 mg INHALATION RT-Q4H PRN 06/29/18 06/08/24 History Nebulized] Cetirizine HCl [Zyrtec] 10 mg PO DAILY 06/29/18 06/08/24 History Omeprazole 40 mg PO BID 06/29/18 06/08/24 History Sertraline HCl [Zoloft] 50 mg PO DAILY 06/29/18 06/08/24 History Cholecalciferol [Vitamin D3 (25 2,000 unit PO QAM 09/13/18 06/08/24 History Mcg = 1000 Iu)] Ascorbic Acid [Vitamin C] 250 mg PO DAILY 02/11/20 06/08/24 History Ferrous Sulfate [Iron (65 MG 325 mg PO QAM 02/11/20 06/08/24 History Elemental)] Pramipexole [Mirapex] 0.25 mg PO BID@1600,2100 02/11/20 06/08/24 History Cyanocobalamin (Vitamin B-12) 1,000 mcg PO QAM 04/11/20 06/08/24 History [Vitamin B-12] Gabapentin [Neurontin] 0.5 tab PO HS 09/03/23 06/08/24 History Magnesium 250 mg PO QAM 09/03/23 06/08/24 History Albuterol Inhaler [Ventolin Hfa 1 - 2 inh PO QID PRN 02/24/24 06/08/24 History Inhaler] Alirocumab [Praluent Pen] 75 mg SQ Q14D 06/08/24 06/08/24 History Ezetimibe [Zetia] 10 mg PO DAILY 06/08/24 06/08/24 History Lidocaine 5% Patch [Lidoderm] 1 patch TOPICAL DAILY PRN 06/08/24 06/08/24 History Allergies Allergy/AdvReac Type Severity Reaction Status Date / Time No Known Allergies Allergy Verified 06/08/24 14:40 Physical Examination Osteopathic Statement: *. No significant issues noted on an osteopathic structural exam other than those noted in the History and Physical/Consult.
[~2024-06-12 07:45] MED LIST changes: -LIDOCAINE 2% (PF) 20 MG/ML 5 ML VIAL ONE; -PROPOFOL 10 MG/ML 20 ML VIAL IV ONE; +TRANEXAMIC 1,000 MG/100ML-NACL 1,000 MG in SALINE 1 100ML.BAG IVPB PRN
[2024-06-12] MEDS: LACTATED RINGERS 1,000 ML IV ONE ×2 (08:02→09:27)
[2024-06-12] MEDS: GABAPENTIN 300 MG CAP PO PRN (09:30)
[2024-06-12] MEDS: ACETAMINOPHEN TAB 500 MG TAB PO PRN (09:30)
[2024-06-12] MEDS: ONDANSETRON 4 MG/2 ML VIAL IVP PRN (09:30)
[2024-06-12] MEDS: LACTATED RINGERS 1,000 ML IV SCH (09:30)
[2024-06-12] MEDS: DEXAMETHASONE SOD PHOSPHATE 4 MG/ML 1 ML VIAL IVP STA (10:04)
[2024-06-12] MEDS ORDERED: fentaNYL (PF) 50 MCG/ML 2 ML AMP ONE (10:15)
[2024-06-12] MEDS ORDERED: MIDAZOLAM 2 MG/2 ML VIAL ONE (10:15)
[2024-06-12] MEDS ORDERED: ePHEDrine 50 MG/ML 1 ML VIAL ONE (10:15)
[2024-06-12] MEDS ORDERED: GLYCOPYRROLATE 0.2 MG/ML 2 ML VIAL ONE (10:15)
[2024-06-12] MEDS ORDERED: ROCURONIUM 10 MG/ML (5 ML VIAL) IV ONE (10:15)
[2024-06-12] MEDS ORDERED: PROPOFOL 10 MG/ML 20 ML VIAL IV ONE (10:15)
[2024-06-12] MEDS ORDERED: PHENYLEPHRINE-0.9% NACL SYG 1,000 MCG/10 ML SYRINGE ONE (10:15)
[2024-06-12] MEDS ORDERED: LIDOCAINE 1% INJ 10MG/ML (20 ML MDV) ONE (10:15)
[2024-06-12] MEDS ORDERED: TRANEXAMIC 1,000 MG/100ML-NACL PREMIX BAG ONE (10:15)
[2024-06-12] MEDS ORDERED: SUCCINYLCHOLINE CHLORIDE 200 MG/10 ML VIAL IV ONE (10:15)
[2024-06-12] MEDS ORDERED: NEOSTIGMINE 1 MG/ML 10 ML VIAL ONE (10:15)
[2024-06-12] MEDS: THROMBIN (BOVINE) 5,000 UNIT VIAL TOPICAL ONE (10:56)
[2024-06-12] MEDS: BUPIVACAINE (PF) 0.5% 30 ML VIAL SQ ONE (12:37)
[2024-06-12] MEDS: LIDOCAINE 2%-EPI 1:100,000 20 ML VIAL SQ ONE (12:37)
--- NOTE | 2024-06-12 12:50 | P.OP ---
Date of Procedure: 06/12/24 Preoperative Diagnosis: 1.L4-5 spondylosis with stenosis, severe 2.Left lower extremity radiculopathy 3.Left lower extremity weakness 4. Low back pain Postoperative Diagnosis: 1.L4-5 spondylosis with stenosis, severe 2.Left lower extremity radiculopathy 3.Left lower extremity weakness 4. Low back pain Procedure(s) Performed: 1. L4-5 POSTEROLATERAL AND INTERBODY FUSION 2. L4-5 POSTEROLATERAL INSTRUMENTATION 3. L4-5 LAMINECTOMY, FACETECTOMY AND FORAMINOTOMY FOR COMPLETE NEURAL DECOMPRESSION, DEFORMITY CORRECTION AND CAGE PLACEMENT 4. L4-5 INSERTION OF BIOMECHANICAL DEVICE, CAGE, x1 5. USE OF Invenergy NAVIGATION FOR SCREW PLACEMENT USE OF IONM ALL SCREWS TESTING > 20 mA USE OF IO MICROSCOPE NOTES: -LEFT -MIS -FACET CYSTS Implants: -FABIAN EVEREST RODS AND SCREWS -GLOBUS SABLE CAGE 8 DEG, LONG, 10 MM, 9-16MM -ALLOGRAFT, ARTHROCELL, ALLOCELL, AUTOGRAFT, MAGNATOS, CONTOUR Anesthesia: GETA Surgeon: Elias Francois Compensation Administrator #1: Alistair Enriquez (WAS PRESENT AND ASSISTED WITH ALL ASPECTS OF THE CASE FROM POSITION TO DRESSING PLACEMENT) Estimated Blood Loss (ml): 75 IV fluids (ml): 1,100 Urine output (ml): 0 Pathology: none sent Condition: stable Disposition: PACU Indications for Procedure: Mr. Harshil Butcher, a 68-year-old retired male, presented to [facility] on 06/08/24 for pre-operative evaluation prior to his scheduled L4-5 LEFT MINIMALLY INVASIVE DECOMPRESSION WITH POSTEROLATERAL AND INTERBODY FUSION. Patient reports constant low back pain radiating to the left lower extremity (VAS 3/10) with associated weakness, numbness, tingling, and balance difficulties. Physical examination revealed positive straight leg raise bilaterally, motor weakness (4/5) throughout the left lower extremity, diminished reflexes (1+) at the left patellar and Achilles tendons, and dermatomal sensory deficits in the L4-5 distribution. Imaging studies demonstrate severe L4-5 spondylosis with stenosis and an 11mm left facet joint synovial cyst impinging on the thecal sac. Previous conservative treatments including medications (Lidocaine patches, Tylenol, Gabapentin, Aspirin, Prednisone), injections, physical therapy, and home exercise program have failed to provide adequate relief. Surgical intervention was recommended with activity restrictions (no lifting/bending/twisting >20lbs) and continued home exercises until surgery. Patient to follow up with PCP for surgical clearance prior to procedure. Description of Procedure: L4-L5 MIS TLIF MILADIS The patient was seen and examined in the preoperative area. All preoperative protocols were followed. Informed consent was obtained, risks and benefits of the procedure were discussed at length. Risks including bleeding infection damage to the surrounding tissue and risk of reoperation were discussed with the patient. Risk of anesthesia up to and including was discussed with the patient. These are outlined in the risk review. They were willing to accept these risks and all the risks of surgery. The patient was given a weight-based dose of antibiotics in the form of 2 g Ancef. The patient was seen and svetlana luated by the anesthesia team who deemed them fit for surgery. The site was marked, the patient was willing to proceed with the procedure. The patient was transferred to the operative suite by the Department of anesthesia. They were then drifted off to sleep by the department anesthesia and GETA was performed. The patient tolerated this well. Once confirmation of lines and ventilation the patient was transferred to a prone Ned table very carefully. All bony prominences including wrists, elbows, axilla, chest, hips, and thighs, and feet were padded very well. Special attention was paid to the genitalia, and these were padded accordingly. SCDs were placed on bilateral lower extremities and were connected. Arms were well padded and placed on arm boards up and out in the 90/90 position. Once in position, again we confirmed good ventilation capabilities and that lines were running appropriately. The patients Lumbar spine was then exposed. 1010s were placed outlining the inci pardeep site. Standard alcohol was used to clean the incision site and allowed to dry. C-arm was used to needle localize the pedicles at L4-5 and bio-steve the patient and confirm level for incision which was marked with a skin marker. Operative briefing was performed with all teams and everyone in agreement to proceed. The patient was then prepped and draped in a normal sterile fashion. Timeout was then performed, and all parties agreed with the procedure to be performed. Skin nicks made and pins placed in the PSIS on the right for the SilMach tracker. 3D Zheim spin was then registered and confirmed to be accurate. Navigated jamshidi and drill-guide were then used to target pedicles bilaterally at L4 and L5. Once accessed, wires were placed in their void. This was repeated at L5 bilaterally. Skin incision was then made along these wires and a perfect scalpel was used over the wire to create a path and measure screw length. Screws were then placed over wires on the contralateral side. Once the screw was at the back of the body wire was removed. The screws were confirmed to be in good position on AP and lateral. We then tested screws and they all tested above 20 mA. Attention was then turned to interbody fusion at L4-5. Tubular retractor system was placed at the interspace of L4-5 using a biplanar c arm and navigation. Once in position and dilated up to 26mm tube it was locked to the bed and confirmed in good position. Microscope was then brought in for visualization. Limited myomectomy was performed and laminectomy, complete facetectomy and foraminotomy performed at L4-5 using high speed shai and Kerrison rongeur. The ligamentum was removed and the dural sac decompressed. Exiting and traversing roots visualized and decompressed. Neural elements were then protected, and disc space accessed with an osteotome. Sequential shaving then done under lateral imaging and complete discectomy performed using pete, pituitary and curettes. Once good bleeding endplates accomplished and good height jainism with trials, a combination of autograft, allograft and synthetic placed anterior in the disc space. The cage was then selected and impacted into place under lateral imaging. The cage was then expanded restoring height, lordosis and alignment. The cage was backfilled with bone graft through a funnel. The honeycomb blanket maker was removed and the area inspected. Good cage placement, stable cage and no injuries. Area was irrigated copiously, and meticulous hemostasis achieved. The tubular retractor was then removed under direct visualization. Screws were then selected and placed over the previously placed wires on the ipsilateral side. This was done in the fashion described above. Screws were then tested, and all tested above 20 mA. Shells were then placed on the tabs. Jones length was then measured, and rods selected. They were then placed through the MIS tabs, subfascial and locked into L5 bilateral and sequentially reduced into L4 for listhesis reduction. These were then locked into place with set screws and finally tightened. Jones holders removed and images taken showing good placement of rods, good lordosis and jainism of height. Tabs were broken off. Wounds were then copiously irrigated with NSS. Shai used for TP decortication and mixture of MagnatOs, allograft and autograft packed posterolateral. Fascia was then closed with 0 Vircyl. Deep subq closed with 0 Vicryl. Superficial subq closed with 2-0 Vicryl and skin with sami. Wound edges approximated very well. Wound was then cleaned with alcohol and dried. Wounds dressed in Optifoam dressings. The patient was then transferred off the table back to their hospital bed a- traumatically. They were extubated by the department of anesthesia. They were then transferred to PACU in stable condition having tolerated the procedure with no complications.
--- NOTE | 2024-06-12 12:58 | FL ---
Fluoroscopy with 3 fluoroscopic images submitted History: LUMBAR FUSION MIN INVASIVE L4-5 FL TIME 42 SECONDS, DAP 576.11 CGYCM2, 2 IMAGES SCANNED INTO PACS, DR MENDES. [facility], , 06/12/2024 12:56 PM
[2024-06-12] MEDS ORDERED: HYDROmorphone 0.5 MG/0.5 ML SYRINGE IVP PRN (13:06)
[2024-06-12] MEDS ORDERED: HYDROmorphone 1 MG/ML 1 ML SYRINGE IVP PRN (13:06)
[2024-06-12] MEDS ORDERED: SENNOSIDES-DOCUSATE SODIUM 1 EACH TAB PO PRN (13:06)
[2024-06-12] MEDS ORDERED: ONDANSETRON 4 MG/2 ML VIAL IVP PRN (13:06)
[2024-06-12] MEDS ORDERED: MAGNESIUM HYDROXIDE 2,400 MG/30 ML CUP PO PRN (13:06)
[2024-06-12] MEDS: HYDROmorphone 0.5 MG/0.5 ML SYRINGE IVP PRN (13:35)
[2024-06-12] MEDS: fentaNYL (PF) 50 MCG/1 ML VIAL IVP ONE ×2 (13:52→13:57)
[2024-06-12] MEDS: SODIUM CHLORIDE 0.9% 1,000 ML IV ONE (15:45)
--- NOTE | 2024-06-12 17:09 | P.CONS ---
History of Present Illness - Reason for Consult Consult date: 06/12/24 - History of Present Illness Patient is a 68-year-old male with history of COPD/asthma, hyperlipidemia, GERD, BPH, anxiety, depression, hypertension, restless leg syndrome, ZAC, neuropathy presenting for elective L4-5 decompression and fusion. Patient denies any chest pain, shortness of breath, abdominal pain, nausea, vomiting, urinary or bowel complaints. Temperature 97.9, pulse 90, respiratory rate 16, blood pressure 96/60, saturation 97% on room air. No labs available. Pertinent positives and negatives as discussed in HPI, a complete review of systems was performed and all other systems are negative. Patient seen and examined at bedside. Vital signs reviewed General: nontoxic, no distress, appears at stated age Derm: warm, dry, intact dressing on observed Head: atraumatic, normocephalic, symmetric Eyes: EOMI, no lid lag, anicteric sclera, pupils equal round reactive to light ENT: Nose and ears atraumatic Neck: No thyromegaly, supple Mouth: no lip lesion, mucus membranes moist Cardiovascular: S1S2 reg, no murmur, no edema Lungs: clear to auscultation bilateral, no rhonchi, no rales, no wheeze, no accessory muscle use Abdominal: soft, nontender to palpation, no guarding, no appreciable organomegaly Ext: no gross muscle atrophy, muscle strength muscle strength 5 out of 5 in all 4 extremities, no contractures Neuro: CN II-XII grossly intact Psych: Alert, oriented, appropriate affect Assessment/Plan: Active: Status post lumbar spine surgery -Pain control, bowel regimen, DVT prophylaxis per orthopedic spine surgery -CBC and BMP tomorrow COPD/asthma, not in exacerbation -Albuterol as needed Dyslipidemia -Continue Zetia 10 mg daily Neuropathy -Continue 50 mg gabapentin nightly GERD continue omeprazole 40 twice daily Restless leg syndrome -Continue pramipexole 0.25 twice daily Anxiety/depression -Continue sertraline 50 daily Thank you for allowing us to participate in the care of this pleasant patient. Do not hesitate to contact us with questions. Someone can be reached from the [facility] hospitalist group all hours of the day at [phone] or via 1Lay. Past Medical History Past Medical History: COPD, GERD/Reflux, Hearing Disorder / Deafness, Hyperlipidemia, Osteoarthritis (OA), Sleep Apnea/CPAP/BIPAP Additional Past Medical History / Comment(s): Back pain, spinal spondylosis/spinal cyst/DDD, LT EAR DEAF-READS LIPS-wears [place] hearing aids, CARPAL TUNNEL [place] hands, unable to tolerate statins/muscle pain, no CPAP. History of Any Multi-Drug Resistant Organisms: None Reported Past Surgical History: Heart Catheterization, Orthopedic Surgery Additional Past Surgical History / Comment(s): rt carpal tunnel sx, EGD, colonoscopies Past Anesthesia/Blood Transfusion Reactions: No Reported Reaction Additional Past Anesthesia/Blood Transfusion Reaction / Comm: son had hard time coming out of anesthesia Smoking Status: Current every day smoker - Past Family History Sister(s) Family Medical History: Cancer Father Family Medical History: Myocardial Infarction ([place]) Mother Family Medical History: Cancer, Hypertension, Liver Disease Additional Family Medical History / Comment(s): tb in 1967, breast cancer Medications and Allergies Home Medications Medication Instructions Recorded Confirmed Type Albuterol Nebulized [Ventolin 2.5 mg INHALATION RT-Q4H PRN 06/29/18 06/12/24 History Nebulized] Cetirizine HCl [Zyrtec] 10 mg PO DAILY 06/29/18 06/12/24 History Omeprazole 40 mg PO BID 06/29/18 06/12/24 History Sertraline HCl [Zoloft] 50 mg PO DAILY 06/29/18 06/12/24 History Cholecalciferol [Vitamin D3 (25 2,000 unit PO QAM 09/13/18 06/12/24 History Mcg = 1000 Iu)] Ascorbic Acid [Vitamin C] 250 mg PO DAILY 02/11/20 06/12/24 History Ferrous Sulfate [Iron (65 MG 325 mg PO QAM 02/11/20 06/12/24 History Elemental)] Pramipexole [Mirapex] 0.25 mg PO BID@1600,2100 02/11/20 06/12/24 History Cyanocobalamin (Vitamin B-12) 1,000 mcg PO QAM 04/11/20 06/12/24 History [Vitamin B-12] Gabapentin [Neurontin] 0.5 tab PO HS 09/03/23 06/12/24 History Magnesium 250 mg PO QAM 09/03/23 06/12/24 History Albuterol Inhaler [Ventolin Hfa 1 - 2 inh PO QID PRN 02/24/24 06/12/24 History Inhaler] Alirocumab [Praluent Pen] 75 mg SQ Q14D 06/08/24 06/12/24 History Ezetimibe [Zetia] 10 mg PO DAILY 06/08/24 06/12/24 History Lidocaine 5% Patch [Lidoderm] 1 patch TOPICAL DAILY PRN 06/08/24 06/12/24 History Allergies Allergy/AdvReac Type Severity Reaction Status Date / Time No Known Allergies Allergy Verified 06/12/24 08:50 Physical Exam Vitals: Vital Signs Temp Pulse Resp BP Pulse Ox 06/12/24 16:43 97.9 F 90 16 96/60 97 06/12/24 15:35 99 16 122/60 97 06/12/24 15:20 104 H 16 119/57 97 06/12/24 15:05 92 16 116/62 97 06/12/24 14:50 98 16 103/51 96 06/12/24 14:35 95 16 102/50 96 06/12/24 14:20 95 16 105/52 96 06/12/24 14:05 87 16 129/60 99 06/12/24 13:50 85 16 114/57 99 06/12/24 13:35 104 H 16 120/57 99 06/12/24 13:20 93 16 127/59 100 06/12/24 13:05 98.1 F 95 14 128/59 99 06/12/24 08:48 97.6 F 80 16 125/65 97 Intake and Output 06/12/24 06/12/24 06/12/24 06:59 14:59 22:59 Intake Total 1850 640 Output Total 576 Balance 1850 64 Intake: IV 1850 100 Oral 540 Output: Post Void Residual 576 Other: Weight 75.7 kg
[2024-06-12] MEDS: TAMSULOSIN 0.4 MG CAP.ER.24H PO SCH (17:31)
[2024-06-12] MEDS: HYDROcodone/APAP 5-325MG 1 EACH TAB PO PRN (17:31)
[2024-06-12] MEDS: PANTOPRAZOLE 40 MG TABLET PO SCH (17:32)
[2024-06-12] MEDS: ACETAMINOPHEN TAB 325 MG TAB PO SCH (18:37)
[2024-06-12] MEDS: PRAMIPEXOLE 0.25 MG TAB PO SCH (20:22)
--- NOTE | 2024-06-13 07:28 | CT ---
EXAMINATION TYPE: CT lumbar spine wo con DATE OF EXAM: 06/13/2024 7:13 AM COMPARISON: Plain film. CLINICAL INDICATION: Male, 68 years old with history of s/p L4-L5 MIS PLIF; PHH, s/p L4-L5 MIS PLIF TECHNIQUE: Multiple axial images were obtained from the midportion of T11 through the sacroiliac sidney nts. Soft tissue and bone windows in coronal and sagittal planes were obtained and reviewed. Contrast used: mL of , (None, if empty). Oral contrast used: (None, if empty). CT DLP: 858 mGycm, Automated exposure control for dose reduction was used. FINDINGS: Postsurgical changes to the lumbar spine with fixation hardware at L4-L5. Discectomy at L4-L5. Hardwa re limits evaluation at these levels. Hardware appears intact. No evidence of fracture. Postsurgical changes in the soft tissues with foci of gas present. Atherosclerosis of the arterial vasculature. IMPRESSION: Postsurgical changes without evidence of immediate post operative complication. [facility], , 06/13/2024 7:25 AM
--- NOTE | 2024-06-13 09:08 | P.PN ---
Subjective Progress Note Date: 06/13/24 Principal diagnosis: 1.L4-5 spondylosis with stenosis, severe 2.Left lower extremity radiculopathy 3.Left lower extremity weakness 4. Low back pain patient seen and examined this morning. Patient does report that his pain is managed on current regimen, although he states he is very uncomfortable in the bed. Encouraged patient to sit in chair at bedside. Patient was able to reposition himself at the bedside without difficulty. Surgical incisions to the lumbar spine, edges are well-approximated with sami intact. Dressing was changed this morning. Informed patient that physical therapy will begin to work with him today. Discussed with patient that if his pain is managed and he does well with therapy that he may possibly be discharged later today versus tomorrow 06/14/2024. No acute concerns. Objective - Vital Signs Vital signs: Vital Signs Temp 98.1 F 06/13/24 01:23 Pulse 78 06/13/24 01:23 Resp 16 06/13/24 01:23 BP 107/63 06/13/24 01:23 Pulse Ox 94 L 06/13/24 01:23 FiO2 Intake & Output 06/12/24 06/12/24 06/13/24 06:59 18:59 06:59 Intake Total 2490 1190 Output Total 576 525 Balance 1914 665 Weight 75.7 kg 75.7 kg Intake: IV 1950 Oral 540 1190 Output: Urine 525 Post Void Residual 576 Other: # Voids 3 - Exam Physical Examination General: The patient is awake and alert, in no acute distress. Skin: Skin is warm and dry with no obvious rashes or lesions. Surgical incisions to the lumbar spine, edges are well-approximated with sami intact. No active drainage. Dressing has been changed this morning. Eye: Pupils are equal, round and reactive to light, extra-ocular movements are intact; there is normal conjunctiva bilaterally. Neck: The neck is supple, there is no tenderness and ROM intact. Respiratory: Respirations are non-labored. Gastrointestinal: Soft, non-distended, non-tender abdomen. Back: There is no tenderness to palpation in the midline, paralumbar, parathoracic or buttocks region. There is no obvious deformity. Musculoskeletal: ROM limited secondary to pain and stiffness from surgical pr ocedure. Right: Shoulder abduction 5/5, elbow flexors 5/5, wrist dorsiflexors 5/5. finger abductor 5/5, aviation mechanic 5/5, hip flexor 4/5, knee flexor 4/5, ankle dorsiflexor 5/5, ankle plantarflexion 5/5 and extensor hallucis 5/5 Left: Shoulder abduction 5/5, elbow flexors 5/5, wrist dorsiflexors 5/5. finger abductor 5/5, aviation mechanic 5/5, hip flexor 4/5, knee flexor 4/5, ankle dorsiflexor 5/5, ankle plantarflexion 5/5 and extensor hallucis 5/5. Neurological: CN 2-12 intact. There are no obvious motor or sensory deficits. Movement and coordination equal and intact. Sensory exam to light touch intact C5-T1 and intact from L2-S1. Reflexes 2/4 in bilateral upper and lower extremities. Negative Hoffmans, babinski, and clonus signs. Psychiatric: Cooperative, appropriate mood & affect, normal judgment. Assessment and Plan Assessment: Postop day 1 L4-L5 minimally invasive TLIF Plan: -Appreciate digital media sales consultant and team management. -Activity: Ambulate QID, OOB all meals, up and about, limit lifting bending twisting to less than 5 lbs. Use walker or cane if needed for stability. -Daily PT/OT, increase ambulation strength and balance. -Pain control: Adequate at this time -Meds: reviewed -GI ppx: senna, Miralax -DVT PPX: Aspirin 81mg daily -Hygiene: Maintain incision clean and dry. May change dressing as needed, please document in notes if performed. Meticulous cleaning after BMs away from the incision site -Encourage IS 10x/hr -Dispo: Anticipate discharge home with homecare Later today versus tomorrow 06/14/2024 *I reviewed and discussed this case with my attending Dr. Francois, whom has reviewed this chart and films and is in agreement with assessment and plan of care as outlined above. I have personally seen and examined the patient, performed the documentation and the assessment and plan as written. Number of minutes spent on the visit: 20m.
[2024-06-13] MEDS: EZETIMIBE 10 MG TAB PO SCH (09:10)
[2024-06-13] MEDS: SERTRALINE 50 MG TAB PO SCH (09:10)
[2024-06-13] MEDS: ASPIRIN 81 MG PO SCH (09:16)
[2024-06-13] MEDS: SENNOSIDES-DOCUSATE SODIUM 1 EACH TAB PO SCH (09:16)
[2024-06-13] MEDS: CYCLOBENZAPRINE 5 MG TAB PO PRN (09:24)
[2024-06-13] MEDS: HYDROcodone/APAP 10-325MG 1 EACH TAB PO PRN (09:26)
[2024-06-13] MEDS: ALBUTEROL NEBULIZED 2.5 MG/3 ML INHALATION PRN (10:13)
[2024-06-13 11:13] LABS: Basophils # (A) 0.03 X 10*3/uL (0.00-0.10); Basophils % (A) 0.2 %; Eosinophils # (A) 0.02 X 10*3/uL (0.04-0.35); Eosinophils % (A) 0.2 %; HCT 39.1 % (39.6-50.0); HGB 12.4 g/dL (13.0-17.0); Lymphocytes # (A) 2.38 X 10*3/uL (0.90-5.00); Lymphocytes % (A) 17.9 %; MCH 29.7 pg (27.0-32.0); MCHC 31.7 g/dL (32.0-37.0); MCV 93.8 FL (80.0-97.0); Mean Platelet Volume 11.2 FL (9.5-12.2); Monocytes # (A) 1.12 X 10*3/uL (0.20-1.00); Monocytes % (A) 8.4 %; NRBC Per 100 WBC 0 X 10*3/uL (0.00-0.01); Neutrophils # (A) 9.73 X 10*3/uL (1.80-7.70); Platelet Count 208 X 10*3/uL (140-440); RBC 4.17 X 10*6/uL (4.40-5.60); RDW 13.8 % (11.5-14.5); WBC 13.32 X 10*3/uL (4.50-10.00)
[2024-06-13 11:27] LABS: BUN/Creat Ratio 16.29 Ratio (12.00-20.00); Blood Urea Nitrogen 11.4 mg/dL (9.0-27.0); Calcium 8.8 mg/dL (8.7-10.3); Chloride 104 mmol/L (96-109); Glucose 99 mg/dL (70-110); Potassium 4.5 mmol/L (3.5-5.5); Sodium 143 mmol/L (135-145)
--- NOTE | 2024-06-13 13:46 | P.PN ---
Subjective Progress Note Date: 06/13/24 Subjective: Patient seen and examined at bedside. No acute events overnight. Pertinent positives and negatives as discussed above, a complete review of systems was performed and all other systems are negative. Vitals Signs Reviewed. General: Nontoxic, no distress, appears at stated age Derm: Warm, dry, back dressing not observed Head: Atraumatic, normocephalic, symmetric Eyes: EOMI, no lid lag, anicteric sclera Mouth: No lip lesion, mucus membranes moist Cardiovascular: S1S2 reg, no murmur Lungs: CTA bilateral, no rhonchi, no rales, no accessory muscle use Abdominal: Soft, nontender to palpation, no guarding, no appreciable organomegaly Ext: No gross muscle atrophy, no edema, no contractures Neuro: CN II-XI grossly intact, no focal neuro deficits Psych: Alert, oriented, appropriate affect Data Reviewed Today: Pertinent Labs: WBC 13.32, hemoglobin 12.4, creatinine 0.7 Imaging: No new imaging Assessment and Plan: Active: Status post lumbar spine surgery Leukocytosis, anticipated outcome of surgery Acute blood loss anemia, anticipated outcome of surgery -Pain control, bowel regimen, DVT prophylaxis per orthopedic spine surgery COPD/asthma, not in exacerbation -Albuterol as needed Dyslipidemia -Continue Zetia 10 mg daily Neuropathy -On Flexeril as needed GERD - continue omeprazole 40 twice daily Restless leg syndrome -Continue pramipexole 0.25 twice daily Anxiety/depression -Continue sertraline 50 daily Thank you for allowing us to participate in the care of this pleasant patient. Do not hesitate to contact us with questions. Someone can be reached from the [facility] hospitalist group all hours of the day at [phone] or via perfect serve. Objective - Vital Signs Vital signs: Vital Signs Temp 98.3 F 06/13/24 12:01 Pulse 80 06/13/24 13:30 Resp 16 06/13/24 12:01 BP 125/67 06/13/24 12:01 Pulse Ox 98 06/13/24 12:01 FiO2 Intake & Output 06/12/24 06/13/24 06/13/24 18:59 06:59 18:59 Intake Total 2490 1190 240 Output Total 576 525 Balance 1914 665 240 Weight 75.7 kg 75.7 kg Intake: IV 1950 Oral 540 1190 240 Output: Urine 525 Post Void Residual 576 Other: Voiding Method Toilet # Voids 3 - Labs CBC & Chem 7: 06/13/24 06:05 06/13/24 06:05 Labs: Abnormal Lab Results - Last 24 Hours (Table) 06/13/24 Range/Units 06:05 WBC 13.32 H (4.50-10.00) X 10*3/uL RBC 4.17 L (4.40-5.60) X 10*6/uL Hgb 12.4 L (13.0-17.0) g/dL Hct 39.1 L (39.6-50.0) % MCHC 31.7 L (32.0-37.0) g/dL Neutrophils # 9.73 H (1.80-7.70) X 10*3/uL Monocytes # 1.12 H (0.20-1.00) X 10*3/uL Eosinophils # 0.02 L (0.04-0.35) X 10*3/uL
--- NOTE | 2024-06-14 07:48 | P.PN ---
Subjective Progress Note Date: 06/14/24 Principal diagnosis: 1.L4-5 spondylosis with stenosis, severe 2.Left lower extremity radiculopathy 3.Left lower extremity weakness 4. Low back pain Patient seen and examined this morning. Patient is resting comfortably in bed. He does report that his pain is managed on current regimen. Surgical incisions to the lumbar spine, dressings are clean dry and intact. Assisted patient to the restroom utilizing his walker, patient tolerated activity well. Discharge instructions have been reviewed. Patient will be discharged later today with home care. No acute concerns. Objective - Vital Signs Vital signs: Vital Signs Temp 98.0 F 06/14/24 05:52 Pulse 89 06/14/24 05:52 Resp 18 06/14/24 05:52 BP 123/68 06/14/24 05:52 Pulse Ox 91 L 06/14/24 05:52 FiO2 Intake & Output 06/13/24 06/14/24 06/14/24 18:59 06:59 18:59 Intake Total 1560 Balance 1560 Intake: Oral 1560 Other: Voiding Method Toilet Toilet # Voids 5 2 # Bowel Movements 0 - Exam Physical Examination General: The patient is awake and alert, in no acute distress. Skin: Skin is warm and dry with no obvious rashes or lesions. Surgical incisions to the lumbar spine, dressing is CDI. Eye: Pupils are equal, round and reactive to light, extra-ocular movements are intact; there is normal conjunctiva bilaterally. Neck: The neck is supple, there is no tenderness and ROM intact. Respiratory: Respirations are non-labored. Gastrointestinal: Soft, non-distended, non-tender abdomen. Back: There is no tenderness to palpation in the midline, paralumbar, parathoracic or buttocks region. There is no obvious deformity. Musculoskeletal: ROM limited secondary to pain and stiffness from surgical procedure. Right: Shoulder abduction 5/5, elbow flexors 5/5, wrist dorsiflexors 5/5. finger abductor 5/5, tier truck driver 5/5, hip flexor 4/5, knee flexor 4/5, ankle dorsiflexor 5/5, ankle plantarflexion 5/5 and extensor hallucis 5/5 Left: Shoulder abduction 5/5, elbow flexors 5/5, wrist dorsiflexors 5/5. finger abductor 5/5, tier truck driver 5/5, hip flexor 4/5, knee flexor 4/5, ankle dorsiflexor 5/5, ankle plantarflexion 5/5 and extensor hallucis 5/5. Neurological: CN 2-12 intact. There are no obvious motor or sensory deficits. Movement and coordination equal and intact. Sensory exam to light touch intact C5-T1 and intact from L2-S1. Reflexes 2/4 in bilateral upper and lower extremities. Negative Hoffmans, babinski, and clonus signs. Psychiatric: Cooperative, appropriate mood & affect, normal judgment. - Labs CBC & Chem 7: 06/13/24 06:05 06/13/24 06:05 Labs: Abnormal Lab Results - Last 24 Hours (Table) 06/13/24 Range/Units 06:05 WBC 13.32 H (4.50-10.00) X 10*3/uL RBC 4.17 L (4.40-5.60) X 10*6/uL Hgb 12.4 L (13.0-17.0) g/dL Hct 39.1 L (39.6-50.0) % MCHC 31.7 L (32.0-37.0) g/dL Neutrophils # 9.73 H (1.80-7.70) X 10*3/uL Monocytes # 1.12 H (0.20-1.00) X 10*3/uL Eosinophils # 0.02 L (0.04-0.35) X 10*3/uL Assessment and Plan Assessment: Postop day 2: L4-L5 minimally invasive TLIF Plan: -Appreciate hadoop consultant and team management. -Activity: Ambulate QID, OOB all meals, up and about, limit lifting bending twisting to less than 5 lbs. Use walker or cane if needed for stability. -Daily PT/OT, increase ambulation strength and balance. -Brace to be worn when up and about, do not wear in bed or shower -Pain control: Adequate at this time -Meds: reviewed -GI ppx: senna, Miralax -DVT PPX: Aspirin 81mg daily -Hygiene: Maintain incision clean and dry. May change dressing as needed, please document in notes if performed. Meticulous cleaning after BMs away from the incision site -Encourage IS 10x/hr -Dispo: Discharge home with home care later today. *I reviewed and discussed this case with my attending Dr. Francois, whom has reviewed this chart and films and is in agreement with assessment and plan of care as outlined above. I have personally seen and examined the patient, performed the documentation and the assessment and plan as written. Number of minutes spent on the visit: 20m.
--- NOTE | 2024-06-14 07:50 | P.DS ---
Providers Date of admission: 06/12/24 Expected date of discharge: 06/14/24 Attending physician: Elias Francois DO Consults: 06/12/24 15:35 Consult Physician Routine Consulting Provider: Michele Porter Consult Reason/Comments: medical management Do you want consulting provider notified?: Yes Primary care physician: [facility] Course: Hospital Course: The patient was evaluated preoperatively and found to have the diagnosis of L4- L5 spondylosis with stenosis. They underwent appropriate preoperative care and were willing to undergo the intended procedure. They underwent a successful L4- L5 minimally invasive TLIF, were recovered appropriately and sent to the floor. While on the floor they worked with physical therapy, occupational therapy and nursing to enhance their recovery experience. Their pain was well controlled through their stay and they were started on appropriate medications, DVT ppx modalities, activity and dietary needs. Daily labs were monitored closely, and transfusions were only used when necessary. Medicine as well as other consulting services have made their input and have helped with our team approach and multidisciplinary care. PT milestones have been met and passed and they have made the recommendation of home with home care for this patient and treating providers agree with this care path. The patient will be discharged home with appropriate medications, instructions and follow-up information and in stable condition. Patient Condition at Discharge: Good Plan - Discharge Summary Discharge Rx Participant: Yes New Discharge Prescriptions: New HYDROcodone/APAP 10-325MG [[facility] 10-325] 1 tab PO Q4-6H PRN #42 tab PRN Reason: Pain Sennosides/Docusate Sodium [Senna Plus 8.6-50 mg Tablet] 2 each PO DAILY PRN #20 tab PRN Reason: constipation cefaDROXiL [Duricef] 500 mg PO Q12HR #10 cap Cyclobenzaprine [Flexeril] 5 mg PO TID PRN #40 tablet PRN Reason: Muscle Spasm Continue Omeprazole 40 mg PO BID Sertraline HCl [Zoloft] 50 mg PO DAILY Albuterol Nebulized [Ventolin Nebulized] 2.5 mg INHALATION RT-Q4H PRN PRN Reason: Shortness Of Breath Cetirizine HCl [Zyrtec] 10 mg PO DAILY Cholecalciferol [Vitamin D3 (25 Mcg = 1000 Iu)] 2,000 unit PO QAM Ferrous Sulfate [Iron (65 MG Elemental)] 325 mg PO QAM Ascorbic Acid [Vitamin C] 250 mg PO DAILY Pramipexole [Mirapex] 0.25 mg PO BID@1600,2100 Cyanocobalamin (Vitamin B-12) [Vitamin B-12] 1,000 mcg PO QAM Gabapentin [Neurontin] 0.5 tab PO HS Magnesium 250 mg PO QAM Albuterol Inhaler [Ventolin Hfa Inhaler] 1 - 2 inh PO QID PRN PRN Reason: Shortness Of Breath Lidocaine 5% Patch [Lidoderm 5% Patch] 1 patch TOPICAL DAILY PRN PRN Reason: Pain Ezetimibe [Zetia] 10 mg PO DAILY Alirocumab [Praluent Pen] 75 mg SQ Q14D Discharge Medication List Albuterol Nebulized [Ventolin Nebulized] 2.5 mg INHALATION RT-Q4H PRN 06/29/18 [History] Cetirizine HCl [Zyrtec] 10 mg PO DAILY 06/29/18 [History] Omeprazole 40 mg PO BID 06/29/18 [History] Sertraline HCl [Zoloft] 50 mg PO DAILY 06/29/18 [History] Cholecalciferol [Vitamin D3 (25 Mcg = 1000 Iu)] 2,000 unit PO QAM 09/13/18 [History] Ascorbic Acid [Vitamin C] 250 mg PO DAILY 02/11/20 [History] Ferrous Sulfate [Iron (65 MG Elemental)] 325 mg PO QAM 02/11/20 [History] Pramipexole [Mirapex] 0.25 mg PO BID@1600,2100 02/11/20 [History] Cyanocobalamin (Vitamin B-12) [Vitamin B-12] 1,000 mcg PO QAM 04/11/20 [History] Gabapentin [Neurontin] 0.5 tab PO HS 09/03/23 [History] Magnesium 250 mg PO QAM 09/03/23 [History] Albuterol Inhaler [Ventolin Hfa Inhaler] 1 - 2 inh PO QID PRN 02/24/24 [History] Alirocumab [Praluent Pen] 75 mg SQ Q14D 06/08/24 [History] Ezetimibe [Zetia] 10 mg PO DAILY 06/08/24 [History] Lidocaine 5% Patch [Lidoderm 5% Patch] 1 patch TOPICAL DAILY PRN 06/08/24 [History] Cyclobenzaprine [Flexeril] 5 mg PO TID PRN #40 tablet 06/13/24 [Rx] HYDROcodone/APAP 10-325MG [[facility] 10-325] 1 tab PO Q4-6H PRN #42 tab 06/13/24 [Rx] Sennosides/Docusate Sodium [Senna Plus 8.6-50 mg Tablet] 2 each PO DAILY PRN #20 tab 06/13/24 [Rx] cefaDROXiL [Duricef] 500 mg PO Q12HR #10 cap 06/13/24 [Rx] Follow up Appointment(s)/Referral(s): Elias Francois DO [Doctor of Osteopathic Medicine] - 2 Weeks Patient Instructions/Handouts: Cefadroxil (By mouth), Hydrocodone/Acetaminophen (By mouth), Cyclobenzaprine (By mouth), Laxative, Stimulant (By mouth), How to Stop Smoking (DC), Anterior Posterior Spinal Fusion (DC) Activity/Diet/Wound Care/Special Instructions: Spine Discharge and Recovery Instructions Date of Surgery: 06/12/2024 Diagnosis: L4-L5 spondylosis with stenosis Procedure: L4-L5 minimally invasive TLIF Medications: See medication list All medication refills should be obtained through your primary care doctor or your clinic spine surgeon. Please discuss prescription refills at your follow up appointment. Do not call the hospital for medication refills. Activity: Encourage ambulation with assist of walker, Up and about 6-8x daily PT/OT daily work on balance, strength and mobility Up in chair with all meals Shower daily Brace: Use brace when up and about, do not wear in bed or shower Dressing: Leave your dressing in place for a total of 3 days post operatively. Then you may remove your dressing and leave open to air. Keep the area clean and if not able to keep area clean, then cover with sterile gauze and tape. Showering: You may shower 3 days after your procedure allowing soap and water to run over incision. Do not scrub. Do not soak. Blot dry. Follow up: Please confirm a follow up appointment with your surgeon 2 weeks post operatively. Please make an appointment to follow up with your PCP in 1-2 weeks after surgery for evaluation '3 phase, 3-week plan' POST OP WEEKS 1-3 1. Lifting/carrying/pushing/pulling limited to less than 5 pounds. 2. Do not sit for longer than 15 minutes at one time. Get up and walk around. Prolonged sitting is NOT advised. If you lay down, see if you can tolerate laying down on you front (belly side) 3. Walk for periods of 15 minutes = 1 mile but no longer; do it multiple times times each day. 4. Ice your low back after activity. POST OP WEEKS 3-6 1. Lifting limited to less than 20 pounds. 2. Do not sit for longer than 30 minutes at a time. Frequently change positions. Use a sit-to stand workstation or take frequent breaks from sitting if you have returned to work. 3. Walk for 30 minutes each day. If possible, do these three or more times a day POST OP WEEKS 6+ At your 6-week appointment we will give you a physical therapy referral to focus on a core stabilization and strengthening program. You should also work on leg & buttock strengthening, hamstring & quadriceps stretching, and continue a low impact aerobic activity program such as swimming, walking, or riding a stationary bicycle. During the initial 6 weeks after your surgery, you are at the highest risk of re-injuring your spine. You should generally avoid BLT's (bending, lifting and twisting combination motions) and follow the above guidelines to reduce the chance of reinjury. You can anticipate post op appointments in our office at approximately 3 weeks and 6 weeks after your surgery. INCISION CARE: If your incision is not draining you do NOT need to cover it with a dressing. Keep your incision clean, dry and intact. In most cases, we apply skin glue, sami or sutures to the incision at the time of surgery. This will be like a crust or have the appearance of a scab and will fall off in time on its own. The stitches or sami need to be removed at 3 weeks post op appointment. You may begin to shower 3 days after surgery (this allows the glue to calero well). However, please avoid scrubbing the incision site or peeling off any of the skin glue. This will ensure optimal healing of your incision. Also, during this time avoid soaking the incision area in water - this includes swimming pools, hot tubs or baths. No ointments, lotions or oils on the incision until your surgeon allows. Leave sami, sutures or glue in place. Neurological dysfunction that comes on suddenly can also be a sign of a stroke. Below some common symptoms of a stroke are listed: B - balance difficulty such as sudden onset walking or leaning to one side - NEW E - eye problem such as sudden double vision or trouble seeing on one side - NEW F - Facial weakness or numbness on one side - NEW A - Arm or leg weakness or numbness on one side - NEW S - Slurred speech or difficulty with word finding - NEW T - Time is BRAIN! Call 911 as soon as you recognize these symptoms Diet: Consume a regular diet rich in vegetables and lean protein such as chicken or fish. You should consume in a ratio of approximately 20% fats|40% carbohydrates|40%protein. Vegetables, sweet potatoes, brown rice or quinoa are examples of good carbohydrates. Chips, white bread, cookies and sweets/sugar are examples of bad carbohydrates. Limit your bad carbs, go wild with good carbs. "Life's Simple 7" Guidelines as per [place] [employer] These will help you reclaim your life after surgery and industrial maintenance repairer helper in your recovery, keeping in mind your restrictions. (1) Get Active. Physical activity can help people lose weight, control high blood pressure and cholesterol, feel emotionally better, and sleep better. (2) Control Cholesterol. Avoid a diet high in saturated fat, trans fat, & cholesterol. Limit whole milk & cream, ice cream, butter, egg yolks, processed meats (like sausage and hot dogs), and fatty meats. Choose healthy foods that are low in saturated fat, trans fat and cholesterol which include: Fruits and vegetables, fiber rich grain products (like whole grain pasta and brown rice), lean meat such as chicken, fish, nuts, seeds, and legumes. (3) Eat Better. Eat small portions. Shop at the grocery with a list and do not stray from it. Tips for a healthy diet include: Limit sodium intake to less than 1500mg daily, avoid prepackaged, processed, and fast foods, choose a diet rich in fruits, vegetables, and whole grain, high fiber foods, and limit saturated & cholesterol in your diet. (4) Manage Blood Pressure. If you have high blood pressure, you should have a cuff at home so that you can check your blood pressure regularly. Be sure you have a good cuff. An arm one is generally better than a wrist one. Bring the cuff to a doctor's appointment to validate that the measurements that your cuff are taking are accurate. Take your blood pressure twice daily when you are sitting down and relaxing. Record the numbers in a log and bring this log with you to your doctors' appointments. (5) Lose Weight if your BMI is above 25. A healthy BMI is between 19-25. To calculate Your BMI, you may use a Standard BMI Calculator on the NIH BMI website: <www.nhlbi.nih.gov/guidelines/obesity/BMI/bmicalc.htm>. Weigh oneself daily. If you are overweight, set a goal to lose weight. A pound a week loss if needed is a good target. (6) Reduce Blood Sugar. Limit foods and liquids with "added sugars." (Added sugars include sucrose, fructose, glucose, maltose, dextrose, high fructose corn syrup, corn syrup, concentrated fruit juice and honey). (7) Stop Smoking. If you smoke, quitting smoking is one of the best things that you can do for your health. Smoking increases your risk of heart attack, stroke, and peripheral vascular disease, which is a build-up of plaque in your arteries. Please discard all the cigarettes and lighters in your house. Have a plan for what you will do when you have the urge to smoke. Direct and second- hand smoke shortens your life as well as the lives of your family, friends and others around you. For your health and the health of those around you, please consider quitting! Proper Bending Body Mechanics: Maintain a wide stance with one foot slightly in front of the other. Keep your back straight. Bend utilizing the strength in your hips and knees. Do not bend at the waist. Maintain the lifted object at your waist-level close to your body. Avoid lifting weight that causes immediately pain or pain anywhere in the body afterwards. Smoking/Nicotine If there was ever one thing that you could do to increase your overall health, decrease your risk of cardiovascular problems by about 39% the second you make the choice, it is to STOP SMOKING. Your body's most instant gratification is the second you stop smoking. We have all heard the studies, read the articles but it is true, smoking is extremely bad for your overall health, and moreover it is detrimental to your bone health. Nicotine, IN ANY FORM, kills bone cells, prevents your body from healing fractures, and significantly prolongs healing after surgery. In spine surgery specifically, it increases your risk of not healing your bones to create a fusion and increases your risk of having a revision surgery due to this up to 60%. I know it is hard. I know it feels impossible. But there are ways. Take control of your life. We are here to help you through it. And when you are ready, ask us and we can direct you to help if you desire. Use the START Plan to Quit Smoking (please visit the Helpguide.org website listed below for more information): S = Set a quit date. Choose a date within the next 2 weeks, so you have enough time to prepare without losing your motivation to quit. If you mainly smoke at work, quit on the weekend, so you have a few days to adjust to the change. T = Tell family, friends, and co-workers that you plan to quit. Let your friends and family in on your plan to quit smoking and tell them you need their support and encouragement to stop. Look for a quit hawa who wants to stop smoking as well. You can help each other get through the rough times. A = Anticipate and plan for the challenges you'll face while quitting. Most people who begin smoking again do so within the first 3 months. You can help yourself make it through by preparing ahead for common challenges, such as nicotine withdrawal and cigarette cravings. R = Remove cigarettes and other tobacco products from your home, car, and work. Throw away all your cigarettes (no emergency pack!), lighters, ashtrays, and matches. Wash your clothes and freshen up anything that smells like smoke. Shampoo your car, clean your drapes and carpet, and steam your furniture. T = Talk to your doctor about getting help to quit. Your doctor can prescribe medication to help with withdrawal and suggest other alternatives. If you can't see a doctor, you can get many products over the counter at your local pharmacy or grocery store, including the nicotine patch, nicotine lozenges, and nicotine gum. Resources for Quitting Smoking: <https://www.[place].gov/documents/[facility]/Quit_Tobacco_Resources_for_patients_313 480_7.pdf> Supplementation: Take recommended dosages of Vitamin D and Calcium to help fortify your bones and help them to heal. See your health maintenance packet for dosages and recommended levels. DVT/VTE prophylaxis: You will be given compression stockings from the hospital. Wear these daily for the first two weeks after surgery. You may take them off at night. You may be prescribed a medication to help thin your blood. Take this as directed. If you are not prescribed this medication, early and frequent ambulation has been shown to be the best prophylaxis to deep vein thrombosis and sequelae related to this event. Discharge Disposition: HOME WITH HOME HEALTH SERVICES
[2024-06-14 08:20] VITALS: BP 112/66; RESP 16
[2024-06-14 09:23] LABS: HCT 39.8 % (39.6-50.0); HGB 12.5 g/dL (13.0-17.0); MCH 29.8 pg (27.0-32.0); MCHC 31.4 g/dL (32.0-37.0); MCV 94.8 FL (80.0-97.0); Mean Platelet Volume 11.2 FL (9.5-12.2); NRBC Per 100 WBC 0 X 10*3/uL (0.00-0.01); Platelet Count 212 X 10*3/uL (140-440); RDW 13.9 % (11.5-14.5)
[2024-06-14 09:24] LABS: Basophils # (A) 0.08 X 10*3/uL (0.00-0.10); Basophils % (A) 0.7 %; Eosinophils # (A) 0.07 X 10*3/uL (0.04-0.35); Eosinophils % (A) 0.6 %; Lymphocytes # (A) 2.07 X 10*3/uL (0.90-5.00); Monocytes # (A) 0.95 X 10*3/uL (0.20-1.00); Monocytes % (A) 8.7 %; Neutrophils # (A) 7.68 X 10*3/uL (1.80-7.70); Neutrophils % (A) 70.5 %
--- NOTE | 2024-06-14 09:28 | P.PN ---
Subjective Progress Note Date: 06/14/24 Subjective: Patient seen and examined at bedside. No acute events overnight. Pertinent positives and negatives as discussed above, a complete review of systems was performed and all other systems are negative. Vitals Signs Reviewed. General: Nontoxic, no distress, appears at stated age Derm: Warm, dry, back dressing not observed Head: Atraumatic, normocephalic, symmetric Eyes: EOMI, no lid lag, anicteric sclera Mouth: No lip lesion, mucus membranes moist Cardiovascular: S1S2 reg, no murmur Lungs: CTA bilateral, no rhonchi, no rales, no accessory muscle use Abdominal: Soft, nontender to palpation, no guarding, no appreciable organomegaly Ext: No gross muscle atrophy, no edema, no contractures Neuro: CN II-XI grossly intact, no focal neuro deficits Psych: Alert, oriented, appropriate affect Data Reviewed Today: Pertinent Labs: WBC 10.9, hemoglobin 12.5 Imaging: No new imaging Assessment and Plan: Active: Status post lumbar spine surgery Leukocytosis, anticipated outcome of surgery Acute blood loss anemia, anticipated outcome of surgery -Pain control, bowel regimen, DVT prophylaxis per orthopedic spine surgery COPD/asthma, not in exacerbation -Albuterol as needed Dyslipidemia -Continue Zetia 10 mg daily Neuropathy -On Flexeril as needed GERD - continue omeprazole 40 twice daily Restless leg syndrome -Continue pramipexole 0.25 twice daily Anxiety/depression -Continue sertraline 50 daily Patient is medically optimized for discharge Thank you for allowing us to participate in the care of this pleasant patient. Do not hesitate to contact us with questions. Someone can be reached from the [facility] [place] [facility] all hours of the day at [phone] or via perfect serve. Objective - Vital Signs Vital signs: Vital Signs Temp 98.5 F 06/14/24 08:13 Pulse 79 06/14/24 08:13 Resp 16 06/14/24 08:13 BP 112/66 06/14/24 08:13 Pulse Ox 93 L 06/14/24 08:13 FiO2 Intake & Output 06/13/24 06/14/24 06/14/24 18:59 06:59 18:59 Intake Total 1560 Balance 1560 Intake: Oral 1560 Other: Voiding Method Toilet Toilet # Voids 5 2 # Bowel Movements 0 - Labs CBC & Chem 7: 06/14/24 05:46 06/13/24 06:05 Labs: Abnormal Lab Results - Last 24 Hours (Table) 06/13/24 06/14/24 Range/Units 06:05 05:46 WBC 13.32 H 10.90 H (4.50-10.00) X 10*3/uL RBC 4.17 L 4.20 L (4.40-5.60) X 10*6/uL Hgb 12.4 L 12.5 L (13.0-17.0) g/dL Hct 39.1 L (39.6-50.0) % MCHC 31.7 L 31.4 L (32.0-37.0) g/dL Immature Gran # 0.05 H (0.00-0.04) X 10*3/uL Neutrophils # 9.73 H (1.80-7.70) X 10*3/uL Monocytes # 1.12 H (0.20-1.00) X 10*3/uL Eosinophils # 0.02 L (0.04-0.35) X 10*3/uL
[2024-06-14 13:22] VITALS: PULSE 85; TEMP 98.4
== END 2024-06-14 14:35 | disposition home health service (06) ==
LOC: OR 07:45 → 5NMEDONC 15:18 → OR 06-14 14:35
PROVIDERS: ATTEND Orthopaedic Surgery
DX: M47.26 Other spondylosis with radiculopathy, lumbar region (principal); M48.061 Spinal stenosis, lumbar region without neurogenic claudication; M62.81 Muscle weakness (generalized); J44.9 Chronic obstructive pulmonary disease, unspecified; K21.9 Gastro-esophageal reflux disease without esophagitis; E78.5 Hyperlipidemia, unspecified; M19.90 Unspecified osteoarthritis, unspecified site; G47.30 Sleep apnea, unspecified; G25.81 Restless legs syndrome; F41.9 Anxiety disorder, unspecified; F32.A Depression, unspecified; H91.90 Unspecified hearing loss, unspecified ear; F17.210 Nicotine dependence, cigarettes, uncomplicated; Z79.899 Other long term (current) drug therapy; Z98.890 Other specified postprocedural states
CPT/HCPCS: 22633; 22853; 20930; 20936; 22840; 94640 ×2; 97162; 80048; 85025 ×2; 72100; 72131; C1713; C1734; J1100; J0690 ×2; J2405; J1171; J3010; J0665